=== PATIENT | male | born 1935 | race Caucasian/White ===

== ENCOUNTER 2017-05-16 02:14 | Inpatient (IN) | payer OTHER, MEDICARE ==
[~2017-05-16] VITALS: Ht 175.3 cm; Wt 120.4 kg
[2017-05-16] VITALS (15 sets, daily range): BP systolic 123–162; BP diastolic 65–89; PULSE 62–91; TEMP 36.3–36.6; O2SAT 91–95; BMI 39.6
[~2017-05-16 02:14] MED LIST: LISI10TA PO; MISC1CAP60 PO; NVLGI7030 SC
[2017-05-16] MEDS ORDERED: NITROGLYCERIN 0.4 MG SL PER TAB CHARGE ONE (02:33)
[2017-05-16] MEDS ORDERED: NITROGLYCERIN 0.4 MG SL PER TAB CHARGE SL STA (02:33)
--- NOTE | 2017-05-16 02:40 | EMERGENCY ROOM VISIT NOTE ---
History Report prepared by Felipe: Payton Catsellanos Under the Supervision of: Dr. Becca Champagne D.O. First contact with patient: 02:25 Chief Complaint: CHEST PAIN Stated Complaint: CHEST PAIN History of Present Illness The patient is a 81 year old male who presents to the Emergency Room with complaints of persistent, worsening chest pain that began around 1800. He currently rates his discomfort as an 8/10 in severity. The patient states that around 1800 he developed chest pain and states that he had difficulty sleeping due to the pain. He states that his pain continued to worsen throughout the night and additionally notes some slight shortness of breath and diaphoresis. The patient denies any abdominal pain or nausea. He denies any history of a previous AR, but notes that he has had normal stress tests and normal heart catheterization 10 years ago. The patient's notes that the patient's brother had an AR. The patient states that he had blood work done at the [facility] three weeks ago that was normal. He additionally states that he has his cholesterol checked every six months and states that it was always normal. The patient states that he took two, 324 mg aspirin prior to arrival. The patient' s additionally notes that the patient has a history of brain surgery 7 years ago and a previous stroke. Source of History: patient, spouse/significant other () Onset: 1800 Position: chest Symptom Intensity: 8/10 Timing: worsening, other (persistent) Associated Symptoms: + diaphoresis, + SOB, No nausea, No abdominal pain Review of Systems See HPI for pertinent positives & negatives. A total of 10 systems reviewed and were otherwise negative. Past Medical & Surgical Medical Problems: (1) Diabetes (2) Hypertension (3) Stroke Surgical Problems: (1) H/O brain surgery Family History Cancer Diabetes mellitus Heart disease Social History Smoking Status: Never Smoker Smokeless Tobacco Use: No Alcohol Use: none Drug Use: none Marital Status: Housing Status: lives with family Occupation Status: retired Current/Historical Medications Scheduled Glyburide (Micronase), 5 MG PO BID Insulin Human NPH (Novolin N), 20 UNITS SQ QAM Insulin Human NPH (Novolin N), 45 UNITS SQ QPM Lisinopril (Zestril), 20 MG PO BID Metoprolol Tartrate (Lopressor) (Lopressor), 12.5 MG PO BID Allergies Coded Allergies: Aspirin (Verified Adverse Reaction, Severe, fell=subdural=wouldn't stop bleeding, 11/02/14) Metformin (Verified Adverse Reaction, Severe, diarrhea, 11/02/14) Physical Exam Vital Signs Date Time Temp Pulse Resp B/P (MAP) Pulse Ox O2 Delivery O2 Flow Rate FiO2 05/16/17 03:49 79 144/77 05/16/17 03:32 88 159/89 97 Nasal Cannula 2.0 05/16/17 03:29 81 149/81 05/16/17 02:50 96 20 143/66 94 Nasal Cannula 2.0 05/16/17 02:45 93 20 158/94 93 Nasal Cannula 2.0 05/16/17 02:40 94 20 148/93 94 Room Air 05/16/17 02:31 93 05/16/17 02:31 Room Air 05/16/17 02:30 90 20 178/92 94 Room Air 05/16/17 02:23 95 Room Air 05/16/17 02:16 36.4 51 20 191/89 93 Room Air Physical Exam HEENT: Head - normocephalic and atraumatic Pupils are equal, round, and reactive to light. Extraocular eye muscles are intact, and sclera are anicteric. Nose - moist nasal mucosa without discharge. Mouth - moist buccal mucosa. Oropharynx is nonerythematous and there is no tonsillar exudate or edema noted. Neck: Supple; no JVD, nuchal rigidity, cervical lymphadenopathy. Heart: Regular rate and rhythm. There is a normal S1 and S2 with no murmurs, clicks, or gallops appreciated. Lungs: Clear to auscultation bilaterally with no wheezes, rales, or rhonchi. Abdomen: Soft, completely nontender, nondistended, with good bowel sounds. There are no palpable pulsatile masses or hepatosplenomegaly. There is no guarding, rigidity, or rebound noted. Extremities: No evidence of cyanosis or clubbing. There is trace pedal edema. There are easily palpable peripheral pulses. Skin: Pale skin, warm and dry with good turgor and no rashes. Medical Decision & Procedures ER Provider Diagnostic Interpretation: 1 view chest x-ray interpreted by me, pending radiology review: borderline cardiomegaly, no pulmonary infiltrates, no pulmonary contusions Laboratory Results 05/16/17 02:22 Red Blood Count 4.96, Mean Corpuscular Volume 86.1, Mean Corpuscular Hemoglobin 29.4, Mean Corpuscular Hemoglobin Concent 34.2, Mean Platelet Volume 10.7, Neutrophils (%) (Auto) 53.7, Lymphocytes (%) (Auto) 34.5, Monocytes (%) (Auto) 7.6, Eosinophils (%) (Auto) 3.4, Basophils (%) (Auto) 0.5, Neutrophils # (Auto) 4.26, Lymphocytes # (Auto) 2.73, Monocytes # (Auto) 0.60, Eosinophils # (Auto) 0.27, Basophils # (Auto) 0.04 05/16/17 02:22 Test 05/16/17 02:22 White Blood Count 7.92 K/uL (4.8-10.8) Red Blood Count 4.96 M/uL (4.7-6.1) Hemoglobin 14.6 g/dL (14.0-18.0) Hematocrit 42.7 % (42-52) Mean Corpuscular Volume 86.1 fL (80-100) Mean Corpuscular Hemoglobin 29.4 pg (25-34) Mean Corpuscular Hemoglobin Concent 34.2 g/dl (32-36) Platelet Count 208 K/uL (130-400) Mean Platelet Volume 10.7 fL (7.4-10.4) Neutrophils (%) (Auto) 53.7 % Lymphocytes (%) (Auto) 34.5 % Monocytes (%) (Auto) 7.6 % Eosinophils (%) (Auto) 3.4 % Basophils (%) (Auto) 0.5 % Neutrophils # (Auto) 4.26 K/uL (1.4-6.5) Lymphocytes # (Auto) 2.73 K/uL (1.2-3.4) Monocytes # (Auto) 0.60 K/uL (0.11-0.59) Eosinophils # (Auto) 0.27 K/uL (0-0.5) Basophils # (Auto) 0.04 K/uL (0-0.2) RDW Standard Deviation 40.9 fL (36.4-46.3) RDW Coefficient of Variation 13.0 % (11.5-14.5) Immature Granulocyte % (Auto) 0.3 % Immature Granulocyte # (Auto) 0.02 K/uL (0.00-0.02) Nucleated RBC Absolute Count (auto) 0.02 K/uL (0-0) Nucleated Red Blood Cells % 0.2 % Prothrombin Time 10.1 SECONDS (9.0-12.0) Prothromb Time International Ratio 0.9 (0.9-1.1) Activated Partial Thromboplast Time 26.7 SECONDS (21.0-31.0) Partial Thromboplastin Ratio 1.0 Anion Gap 9.0 mmol/L (3-11) Est Creatinine Clear Calc Drug Dose 57.4 ml/min Estimated GFR () 60.1 Estimated GFR (Non- 51.9 BUN/Creatinine Ratio 15.6 (10-20) Calcium Level 8.9 mg/dl (8.5-10.1) Total Bilirubin 0.5 mg/dl (0.2-1) Aspartate Amino Transf (AST/SGOT) 102 U/L (15-37) Alanine Aminotransferase (ALT/SGPT) 30 U/L (12-78) Alkaline Phosphatase 62 U/L (45-117) Total Creatine Kinase 957 U/L (39-308) Creatine Kinase MB 100.4 ng/ml (0.5-3.6) Creatine Kinase MB Ratio 10.5 (0-3.0) Troponin I 17.400 ng/ml (0-0.045) Pro-B-Type Natriuretic Peptide 998 pg/ml (0-1800) Total Protein 7.2 gm/dl (6.4-8.2) Albumin 3.7 gm/dl (3.4-5.0) Globulin 3.5 gm/dl (2.5-4.0) Albumin/Globulin Ratio 1.1 (0.9-2) Laboratory results per my review. Medications Administered Medications (Trade) Dose Ordered Sig/Young Route Start Time Stop Time Status Last Admin Dose Admin Nitroglycerin (Nitrostat Tab) 0.4 mg STK-MED ONCE .ROUTE 05/16/17 02:33 05/16/17 02:34 DC 05/16/17 02:33 0.4 MG Metoprolol Tartrate (Lopressor Iv) 5 mg NOW STAT IV 05/16/17 03:08 05/16/17 03:09 DC 05/16/17 03:29 5 MG Nitroglycerin (Nitroglycerin 2% Oint) 1 inch NOW ONCE EXT 05/16/17 03:30 05/16/17 03:31 DC 05/16/17 03:27 1 INCH Ticagrelor (Brilinta Cap) 180 mg STK-MED ONCE PO 05/16/17 04:18 05/16/17 04:19 DC 05/16/17 03:58 180 MG Procedure Medications Administered: Nitroglycerin 0.4 mg SL x3, Lopressor IV 5 mg IV, Nitro SL, Nitroglycerin 1 inch ext. ECG Indication: chest pain Rate (beats per minute): 92 Rhythm: other (bigeminy) Findings: ST elevation (V2, V3, V4), other (Bigeminy) Comparison ECG Date: 11/2013 Change: Repeat EKG #1: normal sinus rhythm, 96 beats per minute, frequent PVCs 1-[address] segment elevation in V2, V3, V4. When compared to EKG done on 11/2013, ST segment elevations, PVCs, and Bigeminy are new. Repeat EKG #2: normal sinus rhythm, greater than [address] elevation in V2, V3 , V4 concerning for STEMI. ED Course 0227: Past medical records reviewed. The patient was evaluated in room B10. A complete history and physical exam was performed. A twelve-lead EKG was obtained. The patient was observing the clinical research monitor and pulse oximeter. An IV lock was initiated and labs were drawn as above. 0233: Ordered Nitroglycerin 0.4 mg SL 0248: I reevaluated the patient and he is now chest pain free since receiving nitroglycerin. 0308: Ordered Lopressor IV 4 mg IV. He had a portable chest x-ray as described above. 0317: The patients Troponin came back as a 17.4. I reevaluated the patient and his chest pain came back, rating it as a 2/10 in severity. A verbal order for 0.4 mg Nitroglycerin SL. The patient will be given Nitropaste, and an additional EKG will be obtained. 0326: The EKG showed greater than [address] segment elevation in the anterior leads. A code heart alert was called at this time. ZAY Murry and I were at the bedside. 0330: Ordered Nitroglycerin 1 inch paste 0333: I reevaluated the patient and he rates his chest pain as a 1-2/10 in severity. 0336: He is currently rating his discomfort as a 1/10 in severity. 0345: Dr. Cruz, Cardiology arrived in the emergency department to evaluate the patient further and take him for a cardiac catheterization. Medical Decision The patient is a 81 year old male who presents to the ED with chest pain. Differential diagnosis includes STEMI, acute coronary syndrome, NSTEMI, GERD, angina. I attest that I have personally reviewed the patient's current medication list. Patient was found to have an elevated blood pressure and was referred to their primary doctor for recheck and further treatment. Lab interpretation: normal white count, stable H&H, troponin 17.4, total CK 957 , CKMB 100, BUN 20, creatinine 1.3, glucose 227, coagulation studies were normal. The patient developed some chest discomfort earlier this evening. He was unable to fall sleep because the chest pain worsened. Upon presentation to the ER, he had some mild ST segment elevation in the anterior leads. The chest pain was initially relieved by sublingual nitroglycerin. However, when the chest pain returned, a repeat EKG was performed and the ST segments had elevated even further. At that point, a heart alert was called and I discussed the case with Dr. Cruz. The patient remains hemodynamically stable while here in the emergency department. Consults Time Called: [phone] Consulting Physician: ZAY Murry Returned Call: [phone] The patient will evaluate the patient for further treatment by ZAY Murry. Impression Primary Impression: STEMI (ST elevation myocardial infarction) Additional Impression: Hyperglycemia Critical Care I have personally spent greater than 60 minutes of critical care time in the direct management of this patient. This includes bedside care, interpretation of diagnostic studies, and testing, discussion with consultants, patient, and family members, and other required patient management activities. This 60 minutes is in excess of all separately billable procedures. Scribe Attestation The scribe's documentation has been prepared under my direction and personally reviewed by me in its entirety. I confirm that the note above accurately reflects all work, treatment, procedures, and medical decision making performed by me. Departure Information Dispostion Being Evaluated By Hospitalist Referrals No Doctor, Assigned (PCP) Problem Qualifiers
[2017-05-16 02:42] LABS: BASO % 0.5 %; BASO ABS # 0.04 K/uL (0-0.2); COMPLETE YES; EOS % 3.4 %; HEMATOCRIT 42.7 % (42-52); IG% 0.3 %; LYMPH % 34.5 %; LYMPH ABS # 2.73 K/uL (1.2-3.4); MEAN CELL VOLUME 86.1 fL (80-100); MEAN CORPUSCULAR HEMOGLOBIN 29.4 pg (25-34); MEAN CORPUSCULAR HGB CONC 34.2 g/dl (32-36); MEAN PLATELET VOLUME 10.7 fL (7.4-10.4); MONO % 7.6 %; NEUT % 53.7 %; PLATELET COUNT 208 K/uL (130-400); RED BLOOD COUNT 4.96 M/uL (4.7-6.1); WHITE BLOOD COUNT 7.92 K/uL (4.8-10.8)
[2017-05-16 03:01] LABS: BUN/CREATININE RATIO 15.6 (10-20); CREATININE 1.3 mg/dl (0.60-1.40); POTASSIUM 4.5 mmol/L (3.5-5.1)
[2017-05-16] MEDS ORDERED: GLYB5TAB8 PO (03:02)
[2017-05-16] MEDS ORDERED: NVLNI SQ ×2 (03:03→03:05)
[2017-05-16] MEDS ORDERED: LISI-725 PO (03:06)
[2017-05-16] MEDS ORDERED: METO25TA56 PO (03:06)
[2017-05-16 03:08] LABS: INR 0.9 (0.9-1.1); PROTHROMBIN TIME (PATIENT) 10.1 SECONDS (9.0-12.0)
[2017-05-16] MEDS ORDERED: METOPROLOL TARTRATE 1 MG/ML VIAL IV STA (03:08)
[2017-05-16 03:12] LABS: ALB/GLOB RATIO 1.1 (0.9-2); CKMB/CK RATIO 10.5 (0-3.0)
[2017-05-16] MEDS ORDERED: NITROGLYCERIN OINT 2% 1GM PACKET EXT ONE (03:30)
[2017-05-16 03:32] LABS: CALCIUM 8.9 mg/dl (8.5-10.1)
--- NOTE | 2017-05-16 03:58 | Procedure Note ---
Pre-Mod Sedation Assessment General Date of Moderate Sedation: May 16, 2017. Vital Signs: Vital Signs Past 12 Hours Date Time Temp Pulse Resp B/P (MAP) Pulse Ox O2 Delivery O2 Flow Rate FiO2 05/16/17 03:49 79 144/77 05/16/17 03:32 88 159/89 97 Nasal Cannula 2.0 05/16/17 03:29 81 149/81 05/16/17 02:50 96 20 143/66 94 Nasal Cannula 2.0 05/16/17 02:45 93 20 158/94 93 Nasal Cannula 2.0 05/16/17 02:40 94 20 148/93 94 Room Air 05/16/17 02:31 93 05/16/17 02:31 Room Air 05/16/17 02:30 90 20 178/92 94 Room Air 05/16/17 02:23 95 Room Air 05/16/17 02:16 36.4 51 20 191/89 93 Room Air Review Cardiovascular: regular rate, rhythm, no edema Abdomen: normal bowel sounds, non tender Lungs: chest non-tender, lungs clear Airway Class: III Pre-Sedation Airway Assessment Oral Cavity: WNL Able to Visualize Vocal Cords: No Short Thick Neck: Yes Hx of Sleep Apnea: No Smoking Status: Never Smoker Mallampati Classification: Class III ASA Classification: Class III Procedure Planning Contraindications-for Mod Sed: None Yes Notes The planned sedation has been discussed with the patient and consent obtained. I have identified the patient, determined the appropriateness of sedation and have assessed the patient immediately prior to the procedure. All medicine(s) and interventions are by my order.
[2017-05-16] MEDS ORDERED: TICAGRELOR 90 MG TAB PO ONE (04:18)
[2017-05-16] MEDS ORDERED: NiCARDipine HCL INJ 2.5 MG/ML 10 ML AMP ONE (04:19)
[2017-05-16] MEDS ORDERED: HEPARIN SOD (PORCINE) 1000 UNIT/ML 10 ML VIAL ONE (04:19)
[2017-05-16] MEDS ORDERED: FENTANYL CITRATE INJ 50 MCG/1 ML 2 ML VIAL ONE ×2 (04:19→05:12)
[2017-05-16] MEDS ORDERED: NITROGLYCERIN/D5W 100MCG/ML 20ML SYR ONE (04:19)
[2017-05-16] MEDS ORDERED: MIDAZOLAM HCL 1 MG/ML 2ML VIAL ONE ×2 (04:19→05:10)
[2017-05-16] MEDS ORDERED: HydrALAZINE HCL 20 MG/ML VIAL ONE (04:58)
--- NOTE | 2017-05-16 05:41 | Procedure Note ---
Post-Mod Sedation Assessment General Date of Moderate Sedation May 16, 2017. Vital Signs: Vital Signs Past 12 Hours Date Time Temp Pulse Resp B/P (MAP) Pulse Ox O2 Delivery O2 Flow Rate FiO2 05/16/17 03:49 79 144/77 05/16/17 03:32 88 159/89 97 Nasal Cannula 2.0 05/16/17 03:29 81 149/81 05/16/17 02:50 96 20 143/66 94 Nasal Cannula 2.0 05/16/17 02:45 93 20 158/94 93 Nasal Cannula 2.0 05/16/17 02:40 94 20 148/93 94 Room Air 05/16/17 02:31 93 05/16/17 02:31 Room Air 05/16/17 02:30 90 20 178/92 94 Room Air 05/16/17 02:23 95 Room Air 05/16/17 02:16 36.4 51 20 191/89 93 Room Air Review - Discharge Criteria Vital Signs Stable: Yes Alert/Oriented/Conversant: Yes Returned to Baseline Mental St: Yes Nausea Absent/Minimal: Yes Pain/Discomfort/Absent/Minimal: Yes Normal/Baseline Respirations: Yes Active Bleeding?: No Pt Received D/C Instructions: N/A Prescriptions Given: None Specific Proced. D/C Criteria Distal Pulses Present (Cardiac: Yes Groin site assessed-Card Cath: N/A Voided Prior To Discharge: N/A Discharged Patients Adult Escort/Transportation: Yes
[2017-05-16] MEDS ORDERED: ONDANSETRON INJ 2 MG/ML 2 ML VIAL IV PRN ×3 (05:45→09:45)
[2017-05-16] MEDS ORDERED: ACETAMINOPHEN 325 MG TAB PO PRN ×2 (05:45→09:45)
--- NOTE | 2017-05-16 06:01 | Cardiology Consultation ---
Cardiology Consultation Date of Consultation: May 16, 2017. Requesting Physician: Dr. Champagne Reason for Consultation: Heart Alert History of Present Illness 81 year old male with a history of type 2 DM on insulin, hypertension here with new chest pain, presenting as a STEMI/Heart Alert. Pain began around 6:00 pm on 05/15 while patient was sitting at home watching TV. Pain persisted for the rest of the night but became progressively worse before presenting to the ED ~ 2:15. In the ED initial ECGs had subtle anterior ST changes with frequent PVCs, bigeminy. Subsequent ECG obtained at 3:23 in the setting of worsened pain showed ST elevations in V2-V5 and heart alert called. Initial troponin 17.4 In ED/en route received ASA, nitro and metoprolol. At time of interview patient with 2/10 residual chest pain. No prior cardiac history. Had a LHC without intervention ~ 15 yrs ago at [place]. Past Medical/Surgical History 1. Hypertension, 2. Type 2 DM, 3. Osteoarthritis, 4. Chronic back pain, 5. 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 Allergies Coded Allergies: Aspirin (Verified Adverse Reaction, Severe, fell=subdural=wouldn't stop bleeding, 11/02/14) Metformin (Verified Adverse Reaction, Severe, diarrhea, 11/02/14) Physical Exam Vital Signs Past 12 Hours Date Time Temp Pulse Resp B/P (MAP) Pulse Ox O2 Delivery O2 Flow Rate FiO2 05/16/17 03:49 79 144/77 05/16/17 03:32 88 159/89 97 Nasal Cannula 2.0 05/16/17 03:29 81 149/81 05/16/17 02:50 96 20 143/66 94 Nasal Cannula 2.0 05/16/17 02:45 93 20 158/94 93 Nasal Cannula 2.0 05/16/17 02:40 94 20 148/93 94 Room Air 05/16/17 02:31 93 05/16/17 02:31 Room Air 05/16/17 02:30 90 20 178/92 94 Room Air 05/16/17 02:23 95 Room Air 05/16/17 02:16 36.4 51 20 191/89 93 Room Air Head: normocephalic ENMT: hearing grossly normal Neck: supple Lungs: Respiratory effort: no dyspnea Auscultation: breath sounds normal Cardiovascular: Heart Auscultation: RRR, no murmurs Peripheral Pulses: Radial Pulse: normal on the left, normal on the right Dorsalis Pedis Pulse: normal on the left, normal on the right Abdomen: Bowel Sounds: normal Inspection & Palpation: soft Liver: non-tender Musculoskeletal: normal Extremities: no edema Neurologic: Cranial Nerves: grossly intact Data Laboratory Results: Last 24 Hours Test 05/16/17 02:22 White Blood Count 7.92 K/uL Red Blood Count 4.96 M/uL Hemoglobin 14.6 g/dL Hematocrit 42.7 % Mean Corpuscular Volume 86.1 fL Mean Corpuscular Hemoglobin 29.4 pg Mean Corpuscular Hemoglobin Concent 34.2 g/dl Platelet Count 208 K/uL Mean Platelet Volume 10.7 fL Neutrophils (%) (Auto) 53.7 % Lymphocytes (%) (Auto) 34.5 % Monocytes (%) (Auto) 7.6 % Eosinophils (%) (Auto) 3.4 % Basophils (%) (Auto) 0.5 % Neutrophils # (Auto) 4.26 K/uL Lymphocytes # (Auto) 2.73 K/uL Monocytes # (Auto) 0.60 K/uL Eosinophils # (Auto) 0.27 K/uL Basophils # (Auto) 0.04 K/uL RDW Standard Deviation 40.9 fL RDW Coefficient of Variation 13.0 % Immature Granulocyte % (Auto) 0.3 % Immature Granulocyte # (Auto) 0.02 K/uL Nucleated RBC Absolute Count (auto) 0.02 K/uL Nucleated Red Blood Cells % 0.2 % Prothrombin Time 10.1 SECONDS Prothromb Time International Ratio 0.9 Activated Partial Thromboplast Time 26.7 SECONDS Partial Thromboplastin Ratio 1.0 Sodium Level 137 mmol/L Potassium Level 4.5 mmol/L Chloride Level 106 mmol/L Carbon Dioxide Level 22 mmol/L Anion Gap 9.0 mmol/L Blood Urea Nitrogen 20 mg/dl Creatinine 1.30 mg/dl Est Creatinine Clear Calc Drug Dose 57.4 ml/min Estimated GFR () 60.1 Estimated GFR (Non- 51.9 BUN/Creatinine Ratio 15.6 Random Glucose 227 mg/dl Calcium Level 8.9 mg/dl Total Bilirubin 0.5 mg/dl Aspartate Amino Transf (AST/SGOT) 102 U/L Alanine Aminotransferase (ALT/SGPT) 30 U/L Alkaline Phosphatase 62 U/L Total Creatine Kinase 957 U/L Creatine Kinase MB 100.4 ng/ml Creatine Kinase MB Ratio 10.5 Troponin I 17.400 ng/ml Pro-B-Type Natriuretic Peptide 998 pg/ml Total Protein 7.2 gm/dl Albumin 3.7 gm/dl Globulin 3.5 gm/dl Albumin/Globulin Ratio 1.1 Assessment & Plan 1. Anterior STEMI 2. Hypertension 3. Type 2 DM 4. History of SDH Presentation consistent with Anterior STEMI and recommend emergent cardiac cath with possible PCI Discussed with patient risk, benefits and alternatives and he is willing to proceed. Loaded with 180 mg Ticagrelor in ED Further recommendations pending findings.
[2017-05-16] MEDS ORDERED: GLUCAGON FOR INJ 1 MG VIAL SQ PRN (06:15)
[2017-05-16] MEDS ORDERED: GLUCOSE 10 TABS/TUBE PO PRN (06:15)
[2017-05-16] MEDS ORDERED: DEXTROSE 50% 50 ML SYR IV PRN (06:15)
[2017-05-16] MEDS ORDERED: GLUCOSE 40% GEL 15 GM TUBE PO PRN (06:15)
--- NOTE | 2017-05-16 06:27 | Cardiac Catheterization ---
Procedure Note Procedure Date May 16, 2017. Pre-Procedure Diagnosis STEMI AUC Score 9 Post-Procedure Diagnosis Severe CAD, Successful PCI, Elevated Intracardiac Pressures Procedure(s) Performed Coronary Angiography, Left Heart Cath, Drug Eluting Stent Weight Control Lecturer Anthony Rf Test Engineer(s) Dania Estimated Blood Loss 20 Medication(s) Fentanyl, Heparin, Nitroglycerin, Versed, Lidocaine 1% Summary of Findings Indication: STEMI/Heart Alert Access: 6Fr Right Radial Artery Catheters: [place]; EBU 3.5 guide Findings: LM - Large caliber vessel, luminal irregularities. LAD - Heavily calcified in the proximal to mid segments. Mild diffuse proximal disease; 100% occluded in mid segment after take-off of 2nd diagonal; after flow reestablish 90% distal LAD stenosis; Large 1st diagonal with mid 70% stenosis as bifurcates; Small 2nd diagonal with moderate diffuse disease Circumflex - Moderate caliber vessel, diffuse proximal to mid 80-90% disease; OM2 with luminal irregularities RCA - Dominant, mild proximal calcification, 20% proximal stenosis, diffuse mild disease in distal segment; Occluded small PDA at ostium (partially fills via left to right collaterals); PAV 40-50% stenosis, PLB2 with 50-60% proximal stenosis LVEDP - 18 -- PCI -- Antithrombotic therapy: heparin, ticagrelor Procedure: LM cannulated with EBU 3.5 guide Prowater wire passed across lesion into distal LAD Mid LAD lesion predilated with 2.5 and 3.0 compliant balloons Dilated lesion stented with 3.0 x 34 Resolute JOSE MARIA Stent post-dilated with 3.5 noncompliant balloon IC vasodilators administered for spasm 2.25 x 18 Resolute JOSE MARIA placed to distal LAD lesion Stent post-dilated with 2.5 NC balloon Post procedure REINA 3 flow, stents well expanded with minimal residual stenosis and no apparent cardiac complications. Arterial Closure: TR Band Summary: 1. Anterior STEMI/Occluded mid LAD 2. Multivessel residual coronary artery disease - 80-90% proximal-mid circumflex disease - 70% mid 1st diagonal at bifurcation - Occluded small PDA, partially fills via left to right collaterals 3. Mildly elevated intracardiac filling pressure. LVEDP 18 4. Successful PCI of mid and distal LAD with 2 drug-eluting stents (3.0 x 34 [ post-dilated to 3.5], 2.25 x 18 Resolute) Recommendations: Admit to ICU for continued monitoring Loaded with Ticagrelor in ED Continue dual-antiplatelet therapy for at least a year Trend troponins until peak, Check Echo Uptitrate beta-terell/JOAQUIN as BP allows High-dose statin Consult cardiac Rehab Possible PCI of proximal-mid circumflex this hospitalization. Hemodynamics Rest Ao: 192/46/67 Final Ao: 124/64/94 LV: 121/18 Recommendations PCI without planned CABG Specimens None Radiation Exposure (mGy) 6358 Contrast (mls) 265 Fluids (cc crystalloids) 55 Drains None Anesthesia Moderate Procedural Complication(s) None Disposition ICU ACC Data Cardiac Status Clinical evaluation leading to the procedure CAD Presntation: STEMI STEMI or Non-STEMI: Symptom Onset Date/Time: 05/15 18:00 Thrombolytics: No Anginal Classification: CCS IV Heart Failure: No, NYHA Class: CCS I Cardiogenic Shock w/in 24Hrs: No Cardiac Arrest w/in 24Hrs: No Imaging studies past 6 months: No Stress studies past 6 months: No Standard Exercise Stress Test: No Stress Echocardiogram: No Stress Testing w/SPECT MPI: No Cardiac CTA: No Coronary Anatomy Dominant: Right Left Main (% Stenosis): Normal LAD (% Stenosis): Mid (100), Distal (90) D1 (% Stenosis): Mid (70) Circumflex (% Stenosis): Proximal (80) RCA (% Stenosis): Proximal (20) R PDA (% Stenosis): Ostial (100) Diagnostic Physician's Name: Twan Cruz MD Status: Emergency Closure Device Percutaneous Entry Location: Radial Closure Device: Radial Band Recommendations: PCI without planned CABG PCI Indication: Immediate PCI for STEMI First Noted: First EKG (3:23) Lesion Segment Name: Mid LAD Culprit Artery: Yes Stenosis Prior to Rx (%): 100 Chronic Total Occlusion: No IVUS: No FFR: No Pre-Procedure REINA Flow: 0 Previously Treated Lesion: No Lesion Complexity: Non-High/Non-C Lesion Length (mm): 20 Thrombus Present: Yes Bifurcation Lesion: No Guidewire Across Lesion: Yes Guidewire: Stenosis Post-Procedure (%): 0 Post-Procedure REINA Flow: 3 Device(s) Deployed: Yes Intraprocedure Events Significant Dissection: No Perforation: No
--- NOTE | 2017-05-16 06:35 | History and Physical ---
History & Physical Date & Time of Service: May 16, 2017 at 06:16 Chief Complaint: AMI Primary Care Physician: Daniel Anaya M.D. History of Present Illness Source: patient The patient is a 81-year-old male who developed the acute onset of worsening chest pain around 1800 hrs., that kept him awake most of the evening. As the night progressed, he developed some shortness of breath and sweats, he then took 2 of the 324 mg aspirin, and came to the emergency department for assessment. He reports that he's never had an OK, he has had a number of normal stress tests, and had a normal cardiac catheterization 10 years ago. In the emergency department his workup included laboratories and EKGs. His initial chest pain resolved with sublingual nitroglycerin, but at the time his laboratories came back and showed elevated troponin of 17.4, he had the return of chest pain, and developed ST segment elevation across the precordial leads, and a heart alert was called. He was then taken to the lab support service tech by Dr. Cruz, where he received 2 drug-eluting stents in the LAD. The patient has then been admitted to the ICU for continued management. In the ICU, the patient's chest pain is 1/10, as was present immediately post- cath. He has no shortness of breath, no nausea or vomiting. Past Medical/Surgical History Medical Problems: (1) Diabetes Status: Chronic (2) Hypertension Status: Chronic (3) Stroke Status: Resolved Surgical Problems: (1) H/O brain surgery Status: Resolved Family History Cancer Diabetes mellitus Heart disease Social History Smoking Status: Never Smoker Smokeless Tobacco Use: No Drug Use: none Marital Status: Occupational Status: retired Immunizations History of Influenza Vaccine: Yes Influenza Vaccine Date: Sep 29, 2013 History of Tetanus Vaccine?: Yes History of Pneumococcal: Yes Pneumococcal Date: Nov 29, 2009 History of Hepatitis B Vaccine: No Multi-Drug Resistant Organisms History of MDRO: No Allergies Coded Allergies: Aspirin (Verified Adverse Reaction, Severe, fell=subdural=wouldn't stop bleeding, 11/02/14) Metformin (Verified Adverse Reaction, Severe, diarrhea, 11/02/14) Home Medications Scheduled Glyburide (Micronase), 5 MG PO BID Insulin Human NPH (Novolin N), 20 UNITS SQ QAM Insulin Human NPH (Novolin N), 45 UNITS SQ QPM Lisinopril (Zestril), 20 MG PO BID Metoprolol Tartrate (Lopressor) (Lopressor), 12.5 MG PO BID Review of Systems Post cardiac catheterization, the patient denies palpitations, shortness of breath, cough, lower extremity swelling, sore throat, fevers, chills, sweats, nausea, vomiting, abdominal pain, pelvic pain, blood in urine or stool, dysuria , urinary frequency or urgency, lightheadedness, dizziness, headache, memory loss, focal or generalized weakness, numbness or tingling in arms or legs, arthralgias or myalgias, back or neck pain, night sweats. The review of systems is otherwise negative other than for that already noted above, and at least 10 systems have been reviewed. Physical Exam Vital Signs Date Time Temp Pulse Resp B/P (MAP) Pulse Ox O2 Delivery O2 Flow Rate FiO2 05/16/17 05:45 36.3 66 17 123/89 93 Room Air 05/16/17 05:35 66 16 152/72 (98) 92 Room Air 05/16/17 05:25 66 16 140/72 (94) 92 Room Air 05/16/17 03:49 79 144/77 05/16/17 03:32 88 159/89 97 Nasal Cannula 2.0 05/16/17 03:29 81 149/81 05/16/17 02:50 96 20 143/66 94 Nasal Cannula 2.0 05/16/17 02:45 93 20 158/94 93 Nasal Cannula 2.0 05/16/17 02:40 94 20 148/93 94 Room Air 05/16/17 02:31 93 05/16/17 02:31 Room Air 05/16/17 02:30 90 20 178/92 94 Room Air 05/16/17 02:23 95 Room Air 05/16/17 02:16 36.4 51 20 191/89 93 Room Air The patient is awake, well-developed and adequately nourished, alert and oriented 3, normocephalic and atraumatic, lying in bed and in no acute distress. HEENT--PERRL, EOMI, mucous membranes and oropharynx normal. Neck--supple, no JVD or bruits, thyroid normal, trachea midline, no adenopathy. Heart--normal S1 and S2, no extra beats, no murmurs, rubs or gallops. Lungs--clear bilaterally, but diminished throughout, no respiratory distress, no accessory muscle use. Abdomen--normal bowel sounds and soft, nontender and nondistended, no hernias or masses, no organomegaly. Extremities--no cyanosis, clubbing or edema. There are good distal pulses b/l. Dermatologic--normal skin turgor, normal color, warm and dry, no abnormal lymph nodes, no rash. Neurologic--cranial nerves II through XII grossly intact. Rheumatologic--deferred. Psychiatric--normal affect. Diagnostics Laboratory Results Results Past 24 Hours Test 05/16/17 02:22 05/16/17 06:00 Range/Units White Blood Count 7.92 4.8-10.8 K/uL Red Blood Count 4.96 4.7-6.1 M/uL Hemoglobin 14.6 14.0-18.0 g/dL Hematocrit 42.7 42-52 % Mean Corpuscular Volume 86.1 80-100 fL Mean Corpuscular Hemoglobin 29.4 25-34 pg Mean Corpuscular Hemoglobin Concent 34.2 32-36 g/dl Platelet Count 208 130-400 K/uL Mean Platelet Volume 10.7 7.4-10.4 fL Neutrophils (%) (Auto) 53.7 % Lymphocytes (%) (Auto) 34.5 % Monocytes (%) (Auto) 7.6 % Eosinophils (%) (Auto) 3.4 % Basophils (%) (Auto) 0.5 % Neutrophils # (Auto) 4.26 1.4-6.5 K/uL Lymphocytes # (Auto) 2.73 1.2-3.4 K/uL Monocytes # (Auto) 0.60 0.11-0.59 K/uL Eosinophils # (Auto) 0.27 0-0.5 K/uL Basophils # (Auto) 0.04 0-0.2 K/uL RDW Standard Deviation 40.9 36.4-46.3 fL RDW Coefficient of Variation 13.0 11.5-14.5 % Immature Granulocyte % (Auto) 0.3 % Immature Granulocyte # (Auto) 0.02 0.00-0.02 K/uL Nucleated RBC Absolute Count (auto) 0.02 0-0 K/uL Nucleated Red Blood Cells % 0.2 % Prothrombin Time 10.1 9.0-12.0 SECONDS Prothromb Time International Ratio 0.9 0.9-1.1 Activated Partial Thromboplast Time 26.7 21.0-31.0 SECONDS Partial Thromboplastin Ratio 1.0 Sodium Level 137 136-145 mmol/L Potassium Level 4.5 3.5-5.1 mmol/L Chloride Level 106 98-107 mmol/L Carbon Dioxide Level 22 21-32 mmol/L Anion Gap 9.0 3-11 mmol/L Blood Urea Nitrogen 20 7-18 mg/dl Creatinine 1.30 0.60-1.40 mg/dl Est Creatinine Clear Calc Drug Dose 57.4 ml/min Estimated GFR () 60.1 Estimated GFR (Non- 51.9 BUN/Creatinine Ratio 15.6 10-20 Random Glucose 227 70-99 mg/dl Calcium Level 8.9 8.5-10.1 mg/dl Total Bilirubin 0.5 0.2-1 mg/dl Aspartate Amino Transf (AST/SGOT) 102 15-37 U/L Alanine Aminotransferase (ALT/SGPT) 30 12-78 U/L Alkaline Phosphatase 62 45-117 U/L Total Creatine Kinase 957 39-308 U/L Creatine Kinase MB 100.4 0.5-3.6 ng/ml Creatine Kinase MB Ratio 10.5 0-3.0 Troponin I 17.400 0-0.045 ng/ml Pro-B-Type Natriuretic Peptide 998 0-1800 pg/ml Total Protein 7.2 6.4-8.2 gm/dl Albumin 3.7 3.4-5.0 gm/dl Globulin 3.5 2.5-4.0 gm/dl Albumin/Globulin Ratio 1.1 0.9-[address] elevations across the precordial leads precardiac catheterization. Impression Assessment and Plan STEMI/status post 2 drug-eluting stents in the LAD--patient will be admitted to the ICU with post catheterization orders per Dr. Cruz. His lisinopril 20 mg by mouth twice a day has been held. Diabetes mellitus --we'll continue with Novolin N 20 units subcutaneous every morning, and 45 units every evening. We'll hold glyburide 5 mg by mouth twice a day. Place on Accu-Cheks before meals and at bedtime with NovoLog coverage per scale. Hypercholesterolemia--empiric atorvastatin 80 mg daily. Abnormal LFTs--follow serially. We'll order an ultrasound of right upper quadrant of abdomen. CVA/brain surgery 7 years ago--no active issue at this point. Stroke prevention in concert with secondary heart prevention. Level of Care Critical Care Advanced Directives Existing Advance Directive: No Existing Living Will: No Existing Power of Health Sanitarian: Yes Resuscitation Status FULL RESUSCITATION VTE Prophylaxis VTE Risk Assessment Done? Y/N: Yes Risk Level: Moderate Social Service Consult None Apply
--- NOTE | 2017-05-16 07:52 | DIAGNOSTIC IMAGING REPORT ---
CHEST ONE VIEW PORTABLE CLINICAL HISTORY: chest pain dyspnea COMPARISON STUDY: 12/25/2012 FINDINGS: Heart top normal in terms of size. Mild chronic elevation right hemidiaphragm. Lungs are considered clear. IMPRESSION: Chronic change. No acute process. Electronically signed by: Ovi Thomson M.D. 05/16/2017 7:51 AM Dictated Date/Time: 05/16/2017 7:50 AM
[2017-05-16] MEDS ORDERED: PHARMACY GLYCEMIC MGMT CONSULT PRN (08:45)
[2017-05-16] MEDS: ATORVASTATIN 40 MG TAB PO SCH (09:00)
[2017-05-16] MEDS ORDERED: INSULIN HUMAN NPH SQ SCH ×2 (09:00→21:00)
[2017-05-16] MEDS ORDERED: METOPROLOL TARTRATE 25 MG TAB PO SCH (09:00)
[2017-05-16] MEDS ORDERED: INSULIN GLARGINE SOLOSTAR 100 UNITS/ML 3 ML PEN SC ONE (09:00)
[2017-05-16] MEDS: INSULIN ASPART 100 UNITS/ML 3 ML PEN SC SCH ×4 (09:00→21:00)
[2017-05-16] MEDS: SODIUM CHLORIDE 0.9% 1000ML 1,000 ML IV SCH (09:01)
[2017-05-16] MEDS: ASPIRIN 81 MG ECTAB PO SCH (09:01)
--- NOTE | 2017-05-16 09:35 | Pharmacy Progress Note ---
Glycemic Control Intl Consult Date of Service May 16, 2017. Scope Glycemic Pharmacist consulted by Dr Mirza on 05/16 for glycemic control and to write orders per [facility] inpatient glycemic control protocol Objective Weight (Kilograms): 121.600 Accuchecks BSG (last 24hrs): Test 05/16/17 02:22 Random Glucose 227 mg/dl (70-99) Laboratory Data (last 24hrs) Test 05/16/17 02:22 Anion Gap 9.0 mmol/L BUN/Creatinine Ratio 15.6 Blood Urea Nitrogen 20 mg/dl Creatinine 1.30 mg/dl Potassium Level 4.5 mmol/L Sodium Level 137 mmol/L White Blood Count 7.92 K/uL Red Blood Count 4.96 M/uL Hemoglobin 14.6 g/dL Hematocrit 42.7 % Mean Corpuscular Volume 86.1 fL Mean Corpuscular Hemoglobin 29.4 pg Mean Corpuscular Hemoglobin Concent 34.2 g/dl Platelet Count 208 K/uL Mean Platelet Volume 10.7 fL Neutrophils (%) (Auto) 53.7 % Lymphocytes (%) (Auto) 34.5 % Monocytes (%) (Auto) 7.6 % Eosinophils (%) (Auto) 3.4 % Basophils (%) (Auto) 0.5 % Neutrophils # (Auto) 4.26 K/uL Lymphocytes # (Auto) 2.73 K/uL Monocytes # (Auto) 0.60 K/uL Eosinophils # (Auto) 0.27 K/uL Basophils # (Auto) 0.04 K/uL HbA1c Ordered for 05/17/17 Recent Pertinent Medications Outpatient Anti-diabetic Regimen: * Novolin N 20 units qAM, 45 units qPM * Glyburide 5 mg po BID * A1c ordered for 05/17/17 Risk Factors for Insulin Resistance: * Recent Surgery: POD 0 s/p cardiac cath w JOSE MARIA x2 * Physiologic stress 2nd acute anterior STEMI * Diet: T2DM/AHA Assessment & Plan ASSESSMENT: * 81 yo M admitted for anterior STEMI s/p cardiac cath w JOSE MARIA x2 on 6/30 AM. Patient currently hyperglycemic at 260 mg/dL. * Unknown degree of outpatient control - HbA1c ordered for tomorrow. * Pt is maintained on oral antidiabetic agents (in addition to basal insulin with Novolin N) as an outpatient * Oral agents are not recommended for inpatient use d/t drug interactions, changing PO intake, and difficulty titrating for acute hyper/hypoglycemia. ADA recommends re-initiating outpatient oral agents 1-2 days prior to discharge if/ when appropriate if they were held on admission. * Will hold oral agents for admission and utilize SQ basal bolus insulin regimen which is the recommended regimen for inpatient glycemic control. * OK to transition from Novolin N to Lantus per Dr. Mirza for acute management. May consider transition back to Novolin N if/when patient becomes more stable, if considered appropriate to continue on discharge. * ADA & AACE recommend a goal blood sugar range 140-180 mg/dl for the majority of critically ill & non-critically ill patients. PLAN FOR INPATIENT GLYCEMIC CONTROL: * Hold outpatient oral diabetes medications (glyburide) * Basal insulin with LANTUS 20 units SQ x1 now then BID as follows: * 10 units for BSG < 140 mg/dL * 20 units for BSG 140+ mg/dL * Correctional Insulin with NOVOLOG per scale ACHS or Q6hrs while NPO (with overnight checks x2) * Goal Range: Low 140 mg/dL - High 180 mg/dL * Correction Factor: 20 mg/dL/unit * Nutritional / Prandial insulin per carb ratio of 1 unit per 7 grams CHO consumed * Please note that the plan above was derived based on current level of insulin resistance and hospital stress. These recommendations are appropriate for inpatient admission only. Plan of care upon discharge will need to be reassessed to avoid potential outpatient hypo/hyperglycemia. Thank you.
[2017-05-16] MEDS ORDERED: MoRPHine SULFATE 2 MG/ML CARP IV PRN (09:45)
[2017-05-16] MEDS ORDERED: CEFAZOLIN IV 1,000 MG in DEXTROSE 5% 50ML 50 ML IV SCH (09:45)
[2017-05-16] MEDS ORDERED: MoRPHine SULFATE 4 MG/ML 1 ML CARP\\VIAL IV PRN (09:45)
[2017-05-16] MEDS ORDERED: ACETAMINOPHEN/HYDROCODONE ELIX 15 ML/CUP UDP PO PRN (09:45)
[2017-05-16] MEDS ORDERED: IV FLUIDS COMPLETED PRN ×2 (10:15→14:00)
[2017-05-16] MEDS ORDERED: D5W AND 1/2NSS + 20MEQ KCL 1,000 ML IV SCH (10:45)
--- NOTE | 2017-05-16 10:55 | ECHOCARDIOGRAM REPORT ---
*NOTICE TO RECEIVING LIBERTARIAN AGENCY This information is strictly Confidential and protected under [place] law. [place] law prohibits you from making any further disclosure of this information unless further disclosure is expressly permitted by the written consent of the person to whom it pertains or is authorized by law. A general authorization for the release of medical or other information is not sufficient for this purpose. Hospital accepts no responsibility if the information is made available to any other person, INCLUDING THE PATIENT. Interpretation Summary * Name: MADHURI GARNICA Study Date: 05/16/2017 07:18 AM BP: 152/72 mmHg * Patient Location: .MSICU\S\E106\S\1 HR: 65 * : 1935 (M/d/yyy) Gender: Male Height: 69 in * Age: 81 yrs Ethnicity: CA Weight: 251 lb * Ordering Physician: Twan Cruz * Referring Physician: Self, Referred * Performed By: Linnette Alcaraz RCS * * Reason For Study: AMI * BSA: 2.3 m2 * -- Conclusions -- * 1. Mildly dilated LV with mild concentric LVH. * 2. Moderate LV dysfunction. LVEF 35-40%. Moderate inferior hypokinesis. Apical akinesis. Moderate mid to apical anterior, anteroseptal, and septal hypokinesis. * 3. Borderline dilated RV, normal RV function. * 4. Grade I diastolic dysfunction. * 5. Mild mitral regurgitation. * 6. Mildly dilated aortic root (4.2 cm). Procedure Details * A complete two-dimensional transthoracic echocardiogram was performed (2D, M-mode, Doppler and color flow Doppler). * The study was technically difficult. * There were technical limitations due to patient'spoor positioning * A contrast injection of Definity was performed to improve assessment of LV function. * Contrast was injected into an intravenous site in the left arm. * One vial of Definity ultrasound contrast was diluted in normal saline to a total volume of 10 ml. A total of '2' ml of solution was administered during imaging. * Lot # [id number] of Definity utilized for procedure. * Expiration date JUN 03. * The attending nurse who injected the contrast agent was ABNER PLAZA, RN. Left Ventricle * The left ventricle is mildly dilated. * There is mild concentric left ventricular hypertrophy. * Ejection Fraction = 35-40%. * Moderate inferior hypokinesis. Apical akinesis. Moderate mid to apical anterior, anteroseptal, and septal hypokinesis. Right Ventricle * The right ventricle is borderline dilated. * The right ventricular systolic function is normal as assessed by tricuspid annular plane systolic excursion (TAPSE) (normal >1.5 cm). Atria * The left atrium is mildly dilated. * The right atrium is mildly dilated. * No ASD detected; PFO is not assessed. Mitral Valve * The mitral valve is grossly normal. * There is mild mitral annular calcification. * Mitral stenosis is absent. * There is mild mitral regurgitation. Tricuspid Valve * The tricuspid valve is not well visualized. * There is no tricuspid stenosis. * There is trace tricuspid regurgitation. Aortic Valve * The aortic valve opens well. * The aortic valve is trileaflet. * No hemodynamically significant valvular aortic stenosis. * There is no significant aortic regurgitation. Pulmonic Valve * The pulmonary valve is inadequately visualized, but the Doppler data is adequate for interpretation. * Pulmonic stenosis is absent. * There is no significant pulmonary regurgitation. Great Vessels * The aortic Sinus(es) of Valsalva are mildly dilated. Pericardium/Pleural * There is no pericardial effusion. Left Ventricular Diastolic Function * Grade I diastolic dysfunction, (abnormal relaxation pattern). MMode 2D Measurements and Calculations IVSd 1.4 cm IVSs 2.0 cm LVIDd 4.5 cm LVIDs 3.6 cm LVPWd 1.8 cm LVPWs 2.1 cm IVS/LVPW 0.77 FS 21.6 % EDV(Teich) 93.8 ml ESV(Teich) 52.6 ml EF(Teich) 43.9 % EDV(cubed) 92.9 ml ESV(cubed) 44.7 ml EF(cubed) 51.8 % % IVS thick 50.7 % % LVPW thick 17.5 % LV mass(C)d 295.8 grams LV mass(C)dI 130.0 grams/m\S\2 LV mass(C)s 338.5 grams LV mass(C)sI 148.8 grams/m\S\2 SV(Teich) 41.2 ml SI(Teich) 18.1 ml/m\S\2 SV(cubed) 48.1 ml SI(cubed) 21.2 ml/m\S\2 Ao root diam 4.3 cm Ao root area 14.6 cm\S\2 LA dimension 4.2 cm LA/Ao 0.98 LVOT diam 2.1 cm LVOT area 3.6 cm\S\2 LVAd ap4 40.1 cm\S\2 LVLd ap4 9.0 cm EDV(MOD-sp4) 139.6 ml EDV(sp4-el) 151.6 ml LVAs ap4 29.8 cm\S\2 LVLs ap4 7.5 cm ESV(MOD-sp4) 97.5 ml ESV(sp4-el) 100.2 ml EF(MOD-sp4) 30.1 % EF(sp4-el) 33.9 % LVAd ap2 44.4 cm\S\2 LVLd ap2 9.1 cm EDV(MOD-sp2) 177.3 ml EDV(sp2-el) 183.2 ml LVAs ap2 34.2 cm\S\2 LVLs ap2 8.1 cm ESV(MOD-sp2) 116.1 ml ESV(sp2-el) 122.5 ml EF(MOD-sp2) 34.5 % EF(sp2-el) 33.1 % LVLd %diff 1.4 % EDV(MOD-bp) 155.5 ml LVLs %diff 7.0 % ESV(MOD-bp) 110.0 ml EF(MOD-bp) 29.3 % SV(MOD-sp4) 42.1 ml SI(MOD-sp4) 18.5 ml/m\S\2 SV(MOD-sp2) 61.3 ml SI(MOD-sp2) 26.9 ml/m\S\2 SV(MOD-bp) 45.5 ml SI(MOD-bp) 20.0 ml/m\S\2 SV(sp4-el) 51.4 ml SI(sp4-el) 22.6 ml/m\S\2 SV(sp2-el) 60.7 ml SI(sp2-el) 26.7 ml/m\S\2 Doppler Measurements and Calculations MV E max von 53.0 cm/sec MV A max von 90.5 cm/sec MV E/A 0.59 MV P1/2t max von 80.0 cm/sec MV P1/2t 97.8 msec MVA(P1/2t) 2.2 cm\S\2 MV dec slope 239.7 cm/sec\S\2 MV dec time 0.27 sec Ao V2 max 89.5 cm/sec Ao max PG 3.2 mmHg Ao max PG (full) 1.3 mmHg RAJAT(V,A) 2.8 cm\S\2 RAJAT(V,D) 2.8 cm\S\2 LV V1 max PG 1.9 mmHg LV V1 max 69.7 cm/sec MR max von 446.7 cm/sec MR max PG 80.2 mmHg PA V2 max 85.9 cm/sec PA max PG 3.0 mmHg
--- NOTE | 2017-05-16 11:39 | Hospitalist Progress Note ---
Hospitalist Progress Note Date of Service May 16, 2017. (Nelida Sellers ., YOCASTAC) Subjective Pt evaluation today including: conversation w/ patient, conversation w/ family (- at bedside ), physical exam, chart review, lab review, review of studies , review of inpatient medication list Voiding: no voiding problems, no incontinence Patient states he is feeling well. Denies chest pain. Ate a little of lunch- +decreased appetite. Patient denies any fever, chills, sweats, lightheadedness, dizziness, vision changes, CP, palpitations, edema, SOB, wheezing, cough, abdominal pain, nausea, vomiting, diarrhea, urinary symptoms, melena, numbness/tingling, weakness, muscle/joint pain, anxiety/depression, active bleeding, or new skin discoloration/changes. (Nelida Sellers, MAGALIS-C) Medications Current Inpatient Medications Medications (Trade) Dose Ordered Sig/Young Route Start Time Stop Time Status Last Admin Dose Admin Sodium Chloride 1,000 ml @ 125 mls/hr Q8H IV 05/16/17 06:15 06/15/17 06:14 05/16/17 09:01 125 MLS/HR Aspirin (Ecotrin Tab) 81 mg QAM PO 05/16/17 09:00 06/15/17 08:59 05/16/17 09:01 81 MG Atorvastatin Calcium (Lipitor Tab) 80 mg QAM PO 05/16/17 09:00 06/15/17 08:59 05/16/17 09:00 80 MG Metoprolol Tartrate (Lopressor Tab) 12.5 mg Q12 PO 05/16/17 09:00 06/15/17 08:59 05/16/17 09:01 12.5 MG Acetaminophen (Tylenol Tab) 650 mg Q4H PRN PO 05/16/17 05:45 06/15/17 05:44 Ticagrelor (Brilinta Cap) 90 mg BID PO 05/16/17 21:00 06/15/17 20:59 Ondansetron HCl (Zofran Inj) 4 mg Q6H PRN IV 05/16/17 06:15 06/15/17 06:14 Insulin Aspart (novoLOG ASPART) SLIDING SCALE If C... ACHS SC 05/16/17 06:45 06/15/17 06:44 6/30/17 09:00 9 UNITS Glucose (Glucose 40% Gel) UD PRN PO 05/16/17 06:15 06/15/17 06:14 Glucose (Glucose Chew Tab) 1 tabs UD PRN PO 05/16/17 06:15 06/15/17 06:14 Dextrose (Dextrose 50% 50ML Syringe) 50 ml UD PRN IV 05/16/17 06:15 06/15/17 06:14 Glucagon (Glucagon Inj) 1 mg UD PRN SQ 05/16/17 06:15 06/15/17 06:14 Miscellaneous Information (Consult Glycemic Management Pharmacy) 1 ea UD PRN N/A 05/16/17 08:45 06/15/17 08:44 Insulin Aspart (novoLOG ASPART) SLIDING SCALE If C... TODAY@0000,0400 [place] 05/17/17 00:00 05/17/17 04:01 Insulin Glargine (Lantus Solostar Pen) BID SC 05/16/17 21:00 06/15/17 20:59 (Nelida Sellers, JAVIER) Objective Vital Signs Date Time Temp Pulse Resp B/P (MAP) Pulse Ox O2 Delivery O2 Flow Rate FiO2 05/16/17 10:00 86 20 162/79 (106) 95 Nasal Cannula 2.0 05/16/17 08:16 36.5 68 20 144/84 94 05/16/17 08:00 73 22 157/76 94 05/16/17 08:00 Room Air 05/16/17 07:12 66 25 142/75 (97) 95 Room Air 05/16/17 07:00 63 23 93 05/16/17 07:00 63 23 93 05/16/17 06:30 68 15 124/72 (89) 92 Room Air 05/16/17 06:15 69 12 123/89 (100) 92 Room Air 05/16/17 06:00 62 20 124/65 (84) 92 Room Air 05/16/17 05:45 36.3 66 17 123/89 93 Room Air 05/16/17 05:35 66 16 152/72 (98) 92 Room Air 05/16/17 05:25 66 16 140/72 (94) 92 Room Air 05/16/17 03:49 79 144/77 05/16/17 03:32 88 159/89 97 Nasal Cannula 2.0 05/16/17 03:29 81 149/81 05/16/17 02:50 96 20 143/66 94 Nasal Cannula 2.0 05/16/17 02:45 93 20 158/94 93 Nasal Cannula 2.0 05/16/17 02:40 94 20 148/93 94 Room Air 05/16/17 02:31 93 05/16/17 02:31 Room Air 05/16/17 02:30 90 20 178/92 94 Room Air 05/16/17 02:23 95 Room Air 05/16/17 02:16 36.4 51 20 191/89 93 Room Air (Nelida Sellers, PA-C) Physical Exam General Appearance: no apparent distress, + obese, + pertinent finding (O2 2L NC) Eyes: normal inspection, PERRL ENT: hearing grossly normal Neck: supple Respiratory/Chest: lungs clear, no respiratory distress, no accessory muscle use Cardiovascular: regular rate, rhythm Abdomen: normal bowel sounds, non tender, soft Extremities: no pedal edema, no calf tenderness Neurologic/Psychiatric: alert, normal mood/affect, oriented x 3 Skin: normal color, warm/dry, no rash (Nelida Sellers, PA-C) Laboratory Results Last 24 Hours Test 05/16/17 02:22 05/16/17 04:40 05/16/17 05:05 05/16/17 06:49 White Blood Count 7.92 K/uL Red Blood Count 4.96 M/uL Hemoglobin 14.6 g/dL Hematocrit 42.7 % Mean Corpuscular Volume 86.1 fL Mean Corpuscular Hemoglobin 29.4 pg Mean Corpuscular Hemoglobin Concent 34.2 g/dl Platelet Count 208 K/uL Mean Platelet Volume 10.7 fL Neutrophils (%) (Auto) 53.7 % Lymphocytes (%) (Auto) 34.5 % Monocytes (%) (Auto) 7.6 % Eosinophils (%) (Auto) 3.4 % Basophils (%) (Auto) 0.5 % Neutrophils # (Auto) 4.26 K/uL Lymphocytes # (Auto) 2.73 K/uL Monocytes # (Auto) 0.60 K/uL Eosinophils # (Auto) 0.27 K/uL Basophils # (Auto) 0.04 K/uL RDW Standard Deviation 40.9 fL RDW Coefficient of Variation 13.0 % Immature Granulocyte % (Auto) 0.3 % Immature Granulocyte # (Auto) 0.02 K/uL Nucleated RBC Absolute Count (auto) 0.02 K/uL Nucleated Red Blood Cells % 0.2 % Prothrombin Time 10.1 SECONDS Prothromb Time International Ratio 0.9 Activated Partial Thromboplast Time 26.7 SECONDS Partial Thromboplastin Ratio 1.0 Sodium Level 137 mmol/L Potassium Level 4.5 mmol/L Chloride Level 106 mmol/L Carbon Dioxide Level 22 mmol/L Anion Gap 9.0 mmol/L Blood Urea Nitrogen 20 mg/dl Creatinine 1.30 mg/dl Est Creatinine Clear Calc Drug Dose 57.4 ml/min Estimated GFR () 60.1 Estimated GFR (Non- 51.9 BUN/Creatinine Ratio 15.6 Random Glucose 227 mg/dl Calcium Level 8.9 mg/dl Total Bilirubin 0.5 mg/dl Aspartate Amino Transf (AST/SGOT) 102 U/L Alanine Aminotransferase (ALT/SGPT) 30 U/L Alkaline Phosphatase 62 U/L Total Creatine Kinase 957 U/L Creatine Kinase MB 100.4 ng/ml Creatine Kinase MB Ratio 10.5 Troponin I 17.400 ng/ml 125.000 ng/ml Pro-B-Type Natriuretic Peptide 998 pg/ml Total Protein 7.2 gm/dl Albumin 3.7 gm/dl Globulin 3.5 gm/dl Albumin/Globulin Ratio 1.1 Kaolin Activated Coagulation Time 208 SECONDS 219 SECONDS Test 05/16/17 11:05 Bedside Glucose 223 mg/dl (Nelida Sellers, MAGALIS-C) Assessment and Plan Patient is a 81-year-old male, PMHx of HTN, T2DM, hypercholesterolemia, osteoarthritis, chronic back pain, and prior SDH after fall requiring craniotomy 7 yrs ago, who presented to the ED w/ complaints of chest pain. Anterior STEMI s/p 2 drug-eluting stents in the LAD by Dr. Cruz on 05/16: - Admitted to ICU s/p catheterization- mail examiner consulted - O2 protocol, wean as tolerated- does NOT wear O2 supplement at home - ECHO- Mildly dilated LV with mild concentric LVH. Moderate LV dysfunction. LVEF 35-40%. Moderate inferior hypokinesis. Apical akinesis. Moderate mid to apical anterior, anteroseptal, and septal hypokinesis. Borderline dilated RV, normal RV function. Grade I diastolic dysfunction. Mild mitral regurgitation. Mildly dilated aortic root (4.2 cm). - Metoprolol 12.5 mg BID, Brilinta 90 mg BID, ASA 81 mg daily - IV Morphine and Tylenol PRN pain - Cardiology following T2DM: - Held home regimen of: Glyburide 5 mg BID and Novolin N 20 u SQ QAM and 45 u QPM - Pharmacy consulted for glycemic management: Lantus 20 u given on 05/16 x1, then Lantus protocol and BSG ACHS w/ sliding insulin scale - ha1c pending HTN: Lisinopril 20 mg daily Hypercholesterolemia: - Atorvastatin 80 mg daily - Lipid panel pending Abnormal LFTs: - Follow serially - RUQ US pending CVA/brain surgery 7 years ago- noted DVT prophylaxis: Brilinta Dispo: From home, lives w/ - discharge uncertain at this time (Nelida Sellers, PA-C) I personally examined pt and verified all bee points w T Verito HERRERA feeling better - had some chest pain a little earlier but was fairly recent from [facility] then, none for hours. BPs noted - cardiology being informed as well. initiated lifestyle discussions vitals noted nad breathing unlabored no pallor or icterus STEMI - now stable s/p stenting. 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 await A1c DVT proph - heparin SQ (Markel Cruz D.O.)
[2017-05-16] MEDS ORDERED: LISINOPRIL 20 MG TAB PO STA (11:45)
--- NOTE | 2017-05-16 15:55 | Cardiology Follow-Up ---
Subjective Subjective Date of Service: May 16, 2017. Pt evaluation today including: conversation w/ patient, conversation w/ family , physical exam, chart review, lab review, review of studies, review of inpatient medication list Problem List Medical Problems: (1) Hyperglycemia Status: Acute (2) STEMI (ST elevation myocardial infarction) Status: Acute Review of Systems Constitutional: No fever, No chills ENT: No hearing loss Respiratory: No cough, No sputum Cardiac: No chest pain, No orthopnea Abdomen: No pain, No nausea Male : No dysuria Psychiatric: No depression symptoms Heme: No abnormal bleeding/bruising Endo: No fatigue Skin: No rash Objective Vital Signs Last Vital Signs Documentation Date Time Temp Pulse Resp B/P (MAP) Pulse Ox O2 Delivery O2 Flow Rate FiO2 05/16/17 10:00 86 20 162/79 (106) 95 Nasal Cannula 2.0 05/16/17 08:16 36.5 Physical Exam: General Appearance: no apparent distress, + obese, + pertinent finding (O2 2L NC) ENT: hearing grossly normal Neck: supple Respiratory/Chest: lungs clear, no respiratory distress, no accessory muscle use Cardiovascular: regular rate, rhythm Abdomen: normal bowel sounds, non tender, soft Extremities: no pedal edema, no calf tenderness, + pertinent finding (No access site ecchymosis, hematoma.) Neurologic/Psychiatric: alert, normal mood/affect, oriented x 3 Skin: normal color, warm/dry, no rash Assessment and Plan 1. Anterior STEMI/Occluded LAD post PPCI with JOSE MARIA x 2 2. 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 Ischemic cardiomyopathy 4. Hypertension 5. Frequent PVCs 6. Type 2 DM Patient chest pain free this afternoon and hemodynamically stable. Moderately reduced LV function on echo. Awaiting troponin peak. Frequent PVCs on telemetry -- Continue ASA/Ticagrelor -- Increase metoprolol to 25 mg BID --> continue to titrate as BP/HR allow -- Increase lisinopril to home 20mg daily -- continue statin -- Will tentatively plan on PCI of proximal-mid circumflex on friday. Will continue to follow Medications: Current Inpatient Medications Medications (Trade) Dose Ordered Sig/Young Route Start Time Stop Time Status Last Admin Dose Admin Sodium Chloride 1,000 ml @ 125 mls/hr Q8H IV 05/16/17 06:15 7/30/17 06:14 05/16/17 09:01 125 MLS/HR Aspirin (Ecotrin Tab) 81 mg QAM PO 05/16/17 09:00 06/15/17 08:59 05/16/17 09:01 81 MG Atorvastatin Calcium (Lipitor Tab) 80 mg QAM PO 05/16/17 09:00 06/15/17 08:59 05/16/17 09:00 80 MG Metoprolol Tartrate (Lopressor Tab) 12.5 mg Q12 PO 05/16/17 09:00 06/15/17 08:59 05/16/17 09:01 12.5 MG Acetaminophen (Tylenol Tab) 650 mg Q4H PRN PO 05/16/17 05:45 06/15/17 05:44 Ticagrelor (Brilinta Cap) 90 mg BID PO 05/16/17 21:00 06/15/17 20:59 Ondansetron HCl (Zofran Inj) 4 mg Q6H PRN IV 05/16/17 06:15 06/15/17 06:14 Insulin Aspart (novoLOG ASPART) SLIDING SCALE If C... ACHS SC 05/16/17 06:45 06/15/17 06:44 05/16/17 12:39 14 UNITS Glucose (Glucose 40% Gel) UD PRN PO 05/16/17 06:15 06/15/17 06:14 Glucose (Glucose Chew Tab) 1 tabs UD PRN PO 05/16/17 06:15 06/15/17 06:14 Dextrose (Dextrose 50% 50ML Syringe) 50 ml UD PRN IV 05/16/17 06:15 06/15/17 06:14 Glucagon (Glucagon Inj) 1 mg UD PRN SQ 05/16/17 06:15 06/15/17 06:14 Miscellaneous Information (Consult Glycemic Management Pharmacy) 1 ea UD PRN N/A 05/16/17 08:45 06/15/17 08:44 Insulin Aspart (novoLOG ASPART) SLIDING SCALE If C... TODAY@0000,0400 [place] 05/17/17 00:00 05/17/17 04:01 Insulin Glargine (Lantus Solostar Pen) BID SC 05/16/17 21:00 7/30/17 20:59 Miscellaneous (Iv Fluids Completed) 1 ea PRN PRN N/A 05/16/17 14:00 05/16/18 13:59 Lab Results: 05/16/17 02:22 Red Blood Count 4.96, Mean Corpuscular Volume 86.1, Mean Corpuscular Hemoglobin 29.4, Mean Corpuscular Hemoglobin Concent 34.2, Mean Platelet Volume 10.7, Neutrophils (%) (Auto) 53.7, Lymphocytes (%) (Auto) 34.5, Monocytes (%) (Auto) 7.6, Eosinophils (%) (Auto) 3.4, Basophils (%) (Auto) 0.5, Neutrophils # (Auto) 4.26, Lymphocytes # (Auto) 2.73, Monocytes # (Auto) 0.60, Eosinophils # (Auto) 0.27, Basophils # (Auto) 0.04 05/16/17 02:22 Test 05/16/17 02:22 05/16/17 05:05 05/16/17 11:05 05/16/17 13:56 White Blood Count 7.92 K/uL (4.8-10.8) Red Blood Count 4.96 M/uL (4.7-6.1) Hemoglobin 14.6 g/dL (14.0-18.0) Hematocrit 42.7 % (42-52) Mean Corpuscular Volume 86.1 fL (80-100) Mean Corpuscular Hemoglobin 29.4 pg (25-34) Mean Corpuscular Hemoglobin Concent 34.2 g/dl (32-36) Platelet Count 208 K/uL (130-400) Mean Platelet Volume 10.7 fL (7.4-10.4) Neutrophils (%) (Auto) 53.7 % Lymphocytes (%) (Auto) 34.5 % Monocytes (%) (Auto) 7.6 % Eosinophils (%) (Auto) 3.4 % Basophils (%) (Auto) 0.5 % Neutrophils # (Auto) 4.26 K/uL (1.4-6.5) Lymphocytes # (Auto) 2.73 K/uL (1.2-3.4) Monocytes # (Auto) 0.60 K/uL (0.11-0.59) Eosinophils # (Auto) 0.27 K/uL (0-0.5) Basophils # (Auto) 0.04 K/uL (0-0.2) RDW Standard Deviation 40.9 fL (36.4-46.3) RDW Coefficient of Variation 13.0 % (11.5-14.5) Immature Granulocyte % (Auto) 0.3 % Immature Granulocyte # (Auto) 0.02 K/uL (0.00-0.02) Nucleated RBC Absolute Count (auto) 0.02 K/uL (0-0) Nucleated Red Blood Cells % 0.2 % Prothrombin Time 10.1 SECONDS (9.0-12.0) Prothromb Time International Ratio 0.9 (0.9-1.1) Activated Partial Thromboplast Time 26.7 SECONDS (21.0-31.0) Partial Thromboplastin Ratio 1.0 Anion Gap 9.0 mmol/L (3-11) Est Creatinine Clear Calc Drug Dose 57.4 ml/min Estimated GFR () 60.1 Estimated GFR (Non- 51.9 BUN/Creatinine Ratio 15.6 (10-20) Calcium Level 8.9 mg/dl (8.5-10.1) Total Bilirubin 0.5 mg/dl (0.2-1) Aspartate Amino Transf (AST/SGOT) 102 U/L (15-37) Alanine Aminotransferase (ALT/SGPT) 30 U/L (12-78) Alkaline Phosphatase 62 U/L (45-117) Total Creatine Kinase 957 U/L (39-308) Creatine Kinase MB 100.4 ng/ml (0.5-3.6) Creatine Kinase MB Ratio 10.5 (0-3.0) Pro-B-Type Natriuretic Peptide 998 pg/ml (0-1800) Total Protein 7.2 gm/dl (6.4-8.2) Albumin 3.7 gm/dl (3.4-5.0) Globulin 3.5 gm/dl (2.5-4.0) Albumin/Globulin Ratio 1.1 (0.9-2) Kaolin Activated Coagulation Time 219 SECONDS (94-140) Bedside Glucose 223 mg/dl (70-99) Date/Time Source Procedure Growth Status 05/16/17 05:50 Nasal MRSA DNA Surveillance Screen - Final Specimen Positive for MRSA by DNA Probe Complete
--- NOTE | 2017-05-16 16:03 | Critical Care Consultation ---
Critical Care Consultation Date of Consultation: May 16, 2017. Attending Physician: Igor Rojas M.D. Reason for Consultation: Medical care status post cardiac catheterization History of Present Illness The patient is a 81-year-old gentleman admitted to the intensive care unit last night after having a cardiac catheterization. I was not notified of the admission or consultation. I happened to find out about it when I called into the ICU at 640 this morning. The patient started to have pain in the middle of his chest around 6 PM yesterday. His says that he didn't feel like eating dinner but didn't complain of anything. He ate dinner and she went to bed. Around 1 in the morning he woke her up and asked her if she could take him to the hospital. She reports he was diaphoretic and looked short of breath. He describes the pain as 8/10. He took 2 aspirin and was seen in the emergency department. The initial EKG showed ST segment elevations in V2 through V4 with some bigeminy. He was given nitroglycerin 0.4 mg sublingual 2 and a dose of Lopressor. He was loaded with Tidagralor 180 mg and taken to the cardiac catheterization lab where he had to stents placed in his LAD. He has multivessel coronary artery disease. Please see his formal cardiac catheterization report for full details. He has no complaints presently. He received several milligrams of morphine for chest pain earlier today. He also has some chronic back pain. He denies shortness of breath and is sitting in a chair. Of note, he is a diabetic and has a history of hypertension. He also has a history of subdural hematoma status post craniotomy. Past Medical/Surgical History Subdural hematoma status post craniotomy. This was a result of a fall. Diabetes mellitus CVA Hypertension Chronic back pain Family History Cancer Diabetes mellitus Heart disease Social History He has never smoked. He drinks alcohol socially. He is to his . He was to her for 17 years, they got and then eventually they will be about 7 years later. Smoking Status: Never Smoker Smokeless Tobacco Use: No Drug Use: none Marital Status: Housing Status: lives with family Occupation Status: retired Allergies Coded Allergies: Aspirin (Verified Adverse Reaction, Severe, fell=subdural=wouldn't stop bleeding, 11/02/14) Metformin (Verified Adverse Reaction, Severe, diarrhea, 11/02/14) Home Medications Scheduled Glyburide (Micronase), 5 MG PO BID Insulin Human NPH (Novolin N), 20 UNITS SQ QAM Insulin Human NPH (Novolin N), 45 UNITS SQ QPM Lisinopril (Zestril), 20 MG PO BID Metoprolol Tartrate (Lopressor) (Lopressor), 12.5 MG PO BID Current Inpatient Medications Current Inpatient Medications Medications (Trade) Dose Ordered Sig/Young Route Start Time Stop Time Status Last Admin Dose Admin Sodium Chloride 1,000 ml @ 125 mls/hr Q8H IV 05/16/17 06:15 06/15/17 06:14 05/16/17 09:01 125 MLS/HR Aspirin (Ecotrin Tab) 81 mg QAM PO 05/16/17 09:00 06/15/17 08:59 05/16/17 09:01 81 MG Atorvastatin Calcium (Lipitor Tab) 80 mg QAM PO 05/16/17 09:00 06/15/17 08:59 05/16/17 09:00 80 MG Metoprolol Tartrate (Lopressor Tab) 12.5 mg Q12 PO 05/16/17 09:00 06/15/17 08:59 05/16/17 09:01 12.5 MG Acetaminophen (Tylenol Tab) 650 mg Q4H PRN PO 05/16/17 05:45 06/15/17 05:44 Ticagrelor (Brilinta Cap) 90 mg BID PO 05/16/17 21:00 06/15/17 20:59 Ondansetron HCl (Zofran Inj) 4 mg Q6H PRN IV 05/16/17 06:15 06/15/17 06:14 Insulin Aspart (novoLOG ASPART) SLIDING SCALE If C... ACHS SC 05/16/17 06:45 06/15/17 06:44 05/16/17 12:39 14 UNITS Glucose (Glucose 40% Gel) UD PRN PO 05/16/17 06:15 06/15/17 06:14 Glucose (Glucose Chew Tab) 1 tabs UD PRN PO 05/16/17 06:15 06/15/17 06:14 Dextrose (Dextrose 50% 50ML Syringe) 50 ml UD PRN IV 05/16/17 06:15 06/15/17 06:14 Glucagon (Glucagon Inj) 1 mg UD PRN SQ 05/16/17 06:15 06/15/17 06:14 Miscellaneous Information (Consult Glycemic Management Pharmacy) 1 ea UD PRN N/A 05/16/17 08:45 06/15/17 08:44 Insulin Aspart (novoLOG ASPART) SLIDING SCALE If C... TODAY@0000,0400 SC 05/17/17 00:00 05/17/17 04:01 Insulin Glargine (Lantus Solostar Pen) BID SC 05/16/17 21:00 06/15/17 20:59 Miscellaneous (Iv Fluids Completed) 1 ea PRN PRN N/A 05/16/17 14:00 05/16/18 13:59 Heparin Sodium (Porcine) (Heparin Sq 5000 Unit/0.5ml) 5,000 unit Q12 SQ 05/16/17 21:00 06/15/17 20:59 Review of Systems He denies loss of consciousness, dizziness, he may have been nauseated. He denies vomiting, cough, fevers, chills, hemoptysis, abdominal pain, constipation , diarrhea, lower extremity edema. Additional review of systems are negative or noncontributory to 12 point system other than what is presented in history present illness. Physical Exam Date Time Temp Pulse Resp B/P (MAP) Pulse Ox O2 Delivery O2 Flow Rate FiO2 05/16/17 10:00 86 20 162/79 (106) 95 Nasal Cannula 2.0 05/16/17 08:16 36.5 68 20 144/84 94 05/16/17 08:00 73 22 157/76 94 05/16/17 08:00 Room Air 05/16/17 07:12 66 25 142/75 (97) 95 Room Air 05/16/17 07:00 63 23 93 05/16/17 07:00 63 23 93 05/16/17 06:30 68 15 124/72 (89) 92 Room Air 05/16/17 06:15 69 12 123/89 (100) 92 Room Air 05/16/17 06:00 62 20 124/65 (84) 92 Room Air 05/16/17 05:45 36.3 66 17 123/89 93 Room Air 05/16/17 05:35 66 16 152/72 (98) 92 Room Air 05/16/17 05:25 66 16 140/72 (94) 92 Room Air 05/16/17 03:49 79 144/77 05/16/17 03:32 88 159/89 97 Nasal Cannula 2.0 05/16/17 03:29 81 149/81 05/16/17 02:50 96 20 143/66 94 Nasal Cannula 2.0 05/16/17 02:45 93 20 158/94 93 Nasal Cannula 2.0 05/16/17 02:40 94 20 148/93 94 Room Air 05/16/17 02:31 93 05/16/17 02:31 Room Air 05/16/17 02:30 90 20 178/92 94 Room Air 05/16/17 02:23 95 Room Air 05/16/17 02:16 36.4 51 20 191/89 93 Room Air He is awake alert and in no distress. He is sitting in a chair HEENT pupils react bilaterally. Oral mucosa is moist. Posterior pharynx is clear Lungs: Bibasilar rales no rhonchi or wheezes. Heart: regular rate and rhythm. I don't hear any murmurs. Chest: Symmetric expansion Abdomen: Limited exam due to his seated position. It is round and nontender. Perhaps mildly distended. Active bowel sounds. Extremities: Warm, no edema. Radial and dorsalis pedis pulses are 1+ bilaterally. Radial artery catheterization site on the right is without hematoma. Neuro: He follows commands and moves all 4 extremities. He easily carries on a conversation. No facial droop. Sensation grossly intact. Laboratory Results Last 24 Hours Test 05/16/17 02:22 05/16/17 04:40 05/16/17 05:05 05/16/17 06:10 White Blood Count 7.92 K/uL Red Blood Count 4.96 M/uL Hemoglobin 14.6 g/dL Hematocrit 42.7 % Mean Corpuscular Volume 86.1 fL Mean Corpuscular Hemoglobin 29.4 pg Mean Corpuscular Hemoglobin Concent 34.2 g/dl Platelet Count 208 K/uL Mean Platelet Volume 10.7 fL Neutrophils (%) (Auto) 53.7 % Lymphocytes (%) (Auto) 34.5 % Monocytes (%) (Auto) 7.6 % Eosinophils (%) (Auto) 3.4 % Basophils (%) (Auto) 0.5 % Neutrophils # (Auto) 4.26 K/uL Lymphocytes # (Auto) 2.73 K/uL Monocytes # (Auto) 0.60 K/uL Eosinophils # (Auto) 0.27 K/uL Basophils # (Auto) 0.04 K/uL RDW Standard Deviation 40.9 fL RDW Coefficient of Variation 13.0 % Immature Granulocyte % (Auto) 0.3 % Immature Granulocyte # (Auto) 0.02 K/uL Nucleated RBC Absolute Count (auto) 0.02 K/uL Nucleated Red Blood Cells % 0.2 % Prothrombin Time 10.1 SECONDS Prothromb Time International Ratio 0.9 Activated Partial Thromboplast Time 26.7 SECONDS Partial Thromboplastin Ratio 1.0 Sodium Level 137 mmol/L Potassium Level 4.5 mmol/L Chloride Level 106 mmol/L Carbon Dioxide Level 22 mmol/L Anion Gap 9.0 mmol/L Blood Urea Nitrogen 20 mg/dl Creatinine 1.30 mg/dl Est Creatinine Clear Calc Drug Dose 57.4 ml/min Estimated GFR () 60.1 Estimated GFR (Non- 51.9 BUN/Creatinine Ratio 15.6 Random Glucose 227 mg/dl Calcium Level 8.9 mg/dl Total Bilirubin 0.5 mg/dl Aspartate Amino Transf (AST/SGOT) 102 U/L Alanine Aminotransferase (ALT/SGPT) 30 U/L Alkaline Phosphatase 62 U/L Total Creatine Kinase 957 U/L Creatine Kinase MB 100.4 ng/ml Creatine Kinase MB Ratio 10.5 Troponin I 17.400 ng/ml Pro-B-Type Natriuretic Peptide 998 pg/ml Total Protein 7.2 gm/dl Albumin 3.7 gm/dl Globulin 3.5 gm/dl Albumin/Globulin Ratio 1.1 Kaolin Activated Coagulation Time 208 SECONDS 219 SECONDS Bedside Glucose 260 mg/dl Test 05/16/17 06:49 05/16/17 11:05 05/16/17 13:56 Troponin I 125.000 ng/ml Bedside Glucose 223 mg/dl Diagnostic Results Echocardiogram report has been reviewed. Ejection fraction is 35-40%. He has grade 1 diastolic dysfunction. EKGs have been reviewed. Portable chest x-ray was reviewed. Assessment & Plan Impression: 1. Acute anterior ST segment elevation myocardial infarction 2. Multivessel coronary artery disease status post LAD stent 2 today, doing well 3. Left ventricular dysfunction, ejection fraction 35-40%. Grade 1 diastolic dysfunction 4. Diabetes mellitus with hyperglycemia, he takes NPH as an outpatient but is on Lantus presently. 5. Hypertension, lisinopril was restarted today. 6. Chronic back pain 7. History of subdural hematoma Plan: Cardiovascular: Continue beta terell, aspirin, statin, Ticagrlor, JOAQUIN inhibitor. He may have a second cardiac catheterization in several days. Continue to trend troponins. The last was 125. Pulmonary: Encourage mobilization and deep breathing Neuro: Morphine for pain. Consider Ultram as well for chronic pain. GI: Cardiac diet. Proton pump inhibitor for GI prophylaxis for now. Renal: No acute active issues. Endocrine: Lantus and NovoLog sliding scale. Glycemic consult. Heme: SCDs for DVT prophylaxis. Mobilize. Infectious disease: No acute active issues. I have discussed his care in detail with Dr. Cruz as well as both the patient and his . Questions were answered. Thank you for asking me to see this nice gentleman.
[2017-05-16] MEDS ORDERED: TRAMADOL HCL 50 MG TAB PO PRN (16:15)
[2017-05-16] MEDS ORDERED: LISINOPRIL 10 MG TAB PO ONE (20:00)
[2017-05-16] MEDS: TICAGRELOR 90 MG TAB PO SCH (20:43)
[2017-05-16] MEDS: METOPROLOL TARTRATE 25 MG TAB PO SCH (20:44)
[2017-05-16] MEDS: HEPARIN SOD 5000 UNIT/0.5 ML CARP SQ SCH (21:07)
[2017-05-16] MEDS: INSULIN GLARGINE SOLOSTAR 100 UNITS/ML 3 ML PEN SC SCH (21:08)
[2017-05-17] VITALS (12 sets, daily range): BP systolic 107–153; BP diastolic 58–93; PULSE 60–98; TEMP 36.3–36.7; O2SAT 92–96
[2017-05-17] MEDS: INSULIN ASPART 100 UNITS/ML 3 ML PEN SC SCH ×6 (04:00→21:00)
[2017-05-17 05:20] LABS: BASO % 0.3 %; BASO ABS # 0.02 K/uL (0-0.2); COMPLETE YES; EOS % 2.9 %; HEMATOCRIT 38.5 % (42-52); IG% 0.4 %; LYMPH ABS # 1.61 K/uL (1.2-3.4); MEAN CELL VOLUME 86.7 fL (80-100); MEAN CORPUSCULAR HEMOGLOBIN 29.5 pg (25-34); MEAN PLATELET VOLUME 10.6 fL (7.4-10.4); MONO % 10.7 %; NEUT % 64.7 %; PLATELET COUNT 178 K/uL (130-400); RED BLOOD COUNT 4.44 M/uL (4.7-6.1); WHITE BLOOD COUNT 7.66 K/uL (4.8-10.8)
[2017-05-17 05:48] LABS: BUN/CREATININE RATIO 16.7 (10-20); CREATININE 0.91 mg/dl (0.60-1.40); POTASSIUM 4.4 mmol/L (3.5-5.1)
[2017-05-17] MEDS: SODIUM CHLORIDE 0.9% 1000ML 1,000 ML IV SCH (05:48)
[2017-05-17 06:02] LABS: CALCIUM 8.6 mg/dl (8.5-10.1); CHOLESTEROL/HDL RATIO 3.6; PHOSPHORUS 2.6 mg/dl (2.5-4.9)
[2017-05-17 08:14] LABS: ESTIMATED AVERAGE GLUCOSE 180 mg/dl; HA1C FLAG Normal (Normal)
[2017-05-17] MEDS: LISINOPRIL 20 MG TAB PO SCH (08:26)
[2017-05-17] MEDS: METOPROLOL TARTRATE 25 MG TAB PO SCH (08:26)
[2017-05-17] MEDS: ASPIRIN 81 MG ECTAB PO SCH (08:26)
[2017-05-17] MEDS: ATORVASTATIN 40 MG TAB PO SCH (08:26)
[2017-05-17] MEDS: TICAGRELOR 90 MG TAB PO SCH ×2 (08:27→21:20)
[2017-05-17] MEDS: INSULIN GLARGINE SOLOSTAR 100 UNITS/ML 3 ML PEN SC SCH ×2 (08:31→21:23)
[2017-05-17] MEDS: HEPARIN SOD 5000 UNIT/0.5 ML CARP SQ SCH ×2 (08:31→21:22)
[2017-05-17] MEDS ORDERED: PANTOprazole SOD 40 MG TAB PO SCH (09:00)
--- NOTE | 2017-05-17 13:15 | Progress Note ---
Subjective Date of Service: May 17, 2017. Subjective Pt evaluation today including: conversation w/ patient, conversation w/ family , physical exam, chart review, lab review, review of inpatient medication list feeling better, no further problems. awaiting repeat [facility] friday. eating lunch no difficulty discussed eating habits - breakfast cheerios and fruit, black coffee, notes usually 2 cookies because of waking up w low sugar. lunch hot dog or wings or soup (chili or tomato), coffee. dinner usually lean meat and vegetable but also potatoes. nighttime snacks on chips, pretzels, cheese curls, etc. notes that he often hurts too much to do much exercise. no other acute complaints, ros otherwise negative except for as above Problem List Medical Problems: (1) Hyperglycemia Status: Acute (2) STEMI (ST elevation myocardial infarction) Status: Acute Review of Systems all other ROS otherwise negative except for as above Objective Vital Signs Date Time Temp Pulse Resp B/P (MAP) Pulse Ox O2 Delivery O2 Flow Rate FiO2 05/17/17 08:34 36.6 94 20 139/92 (108) 93 Room Air 05/17/17 08:00 Room Air 05/17/17 06:00 78 20 94 Room Air 05/17/17 04:00 Room Air 05/17/17 04:00 36.7 75 14 110/58 (75) 93 Room Air 05/17/17 02:00 80 13 143/93 (110) 95 Nasal Cannula 2.0 05/17/17 00:01 36.7 71 17 107/81 (90) 94 Nasal Cannula 2.0 05/16/17 23:59 Nasal Cannula 2.0 05/16/17 22:00 79 23 143/84 (103) 93 Nasal Cannula 2.0 05/16/17 20:00 36.6 79 20 144/88 (106) 95 Nasal Cannula 2.0 05/16/17 20:00 Nasal Cannula 2.0 05/16/17 18:00 91 25 123/65 (84) 93 Nasal Cannula 2.0 05/16/17 16:02 Nasal Cannula 2.0 05/16/17 16:00 81 20 145/88 (107) 91 Nasal Cannula 2.0 05/16/17 14:00 76 26 155/78 (103) 94 Nasal Cannula 2.0 Physical Exam General Appearance: no apparent distress Eyes: EOMI ENT: hearing grossly normal Neck: trachea midline Respiratory/Chest: no respiratory distress, no accessory muscle use Extremities: normal range of motion Neurologic/Psychiatric: perishable fruit inspector II-XII nml as tested, alert, normal mood/affect Skin: normal color, warm/dry Laboratory Results Last 24 Hours Test 05/16/17 13:56 05/16/17 16:31 05/16/17 20:59 05/16/17 22:10 Troponin I 62.900 ng/ml 29.600 ng/ml Bedside Glucose 215 mg/dl 170 mg/dl Test 05/17/17 00:09 05/17/17 04:01 05/17/17 05:00 05/17/17 11:11 Bedside Glucose 171 mg/dl 167 mg/dl 210 mg/dl White Blood Count 7.66 K/uL Red Blood Count 4.44 M/uL Hemoglobin 13.1 g/dL Hematocrit 38.5 % Mean Corpuscular Volume 86.7 fL Mean Corpuscular Hemoglobin 29.5 pg Mean Corpuscular Hemoglobin Concent 34.0 g/dl Platelet Count 178 K/uL Mean Platelet Volume 10.6 fL Neutrophils (%) (Auto) 64.7 % Lymphocytes (%) (Auto) 21.0 % Monocytes (%) (Auto) 10.7 % Eosinophils (%) (Auto) 2.9 % Basophils (%) (Auto) 0.3 % Neutrophils # (Auto) 4.96 K/uL Lymphocytes # (Auto) 1.61 K/uL Monocytes # (Auto) 0.82 K/uL Eosinophils # (Auto) 0.22 K/uL Basophils # (Auto) 0.02 K/uL RDW Standard Deviation 41.8 fL RDW Coefficient of Variation 13.1 % Immature Granulocyte % (Auto) 0.4 % Immature Granulocyte # (Auto) 0.03 K/uL Sodium Level 138 mmol/L Potassium Level 4.4 mmol/L Chloride Level 110 mmol/L Carbon Dioxide Level 22 mmol/L Anion Gap 6.0 mmol/L Blood Urea Nitrogen 15 mg/dl Creatinine 0.91 mg/dl Est Creatinine Clear Calc Drug Dose 84.8 ml/min Estimated GFR () 92.6 Estimated GFR (Non- 79.9 BUN/Creatinine Ratio 16.7 Random Glucose 177 mg/dl Estimated Average Glucose 180 mg/dl Hemoglobin A1c 7.9 % Calcium Level 8.6 mg/dl Phosphorus Level 2.6 mg/dl Magnesium Level 2.0 mg/dl Triglycerides Level 146 mg/dl Cholesterol Level 120 mg/dl HDL Cholesterol 33 mg/dl LDL Cholesterol, Calculated 58 mg/dl VLDL Cholesterol, Calculated 29 mg/dl Cholesterol/HDL Ratio 3.6 Assessment and Plan STEMI - now stable s/p stenting. ongoing med management, for return to bundle tier and labeler friday, medically acceptable for telemetry status if OK w cardiology HTN - improved after titration of metoprolol and lisinopril hyperlipid - on atorva 80mg, lipid panel already low so likely in a few months would reduce to 40mg atorva. DM2 - ongoing glycemic consult. A1c 7.9, ~40 mins face to face on lifestyle discussions - geared towards secondary prevention of MS but predominantly discussing DM lifestyle. also seems to have some problems occuring that are typically inherent to 70/30 insulin (waking up low, feeling hypoglycemic even when sugar 100) -- discussed basal bolus. discussed given MS and all the other new meds, change in insulins would likely be better done in near but not immediate future - will continue to follow DVT proph - heparin SQ Transaminitis - follow periodically
--- NOTE | 2017-05-17 13:59 | Cardiology Follow-Up ---
Subjective Date of Service: May 17, 2017. Pt evaluation today including: conversation w/ patient, conversation w/ family , physical exam, chart review, lab review, review of studies, review of inpatient medication list, conversation w/ attending History of Present Illness Mr. Jenkins feels well today. His breathing has improved. He denies chest pain, shortness of breath, syncope, near-syncope, palpitations, or edema. He denies bleeding. His is present at the bedside. They did inquire about a planned PCI with Dr. Cruz on Friday, as per Dr. Cruz recommendations. Review of systems: As above. Social History Smoking Status: Never Smoker History of Alcohol Use: Yes (occasional) Review of Systems Respiratory: No cough, No sputum Cardiac: No chest pain, No orthopnea Medications Current Inpatient Medications Medications (Trade) Dose Ordered Sig/Young Route Start Time Stop Time Status Last Admin Dose Admin Sodium Chloride 1,000 ml @ 75 mls/hr [id number] IV 05/16/17 06:15 06/15/17 06:14 05/17/17 05:48 75 MLS/HR Aspirin (Ecotrin Tab) 81 mg QAM PO 05/16/17 09:00 06/15/17 08:59 05/17/17 08:26 81 MG Atorvastatin Calcium (Lipitor Tab) 80 mg QAM PO 05/16/17 09:00 06/15/17 08:59 05/17/17 08:26 80 MG Acetaminophen (Tylenol Tab) 650 mg Q4H PRN PO 05/16/17 05:45 06/15/17 05:44 Ticagrelor (Brilinta Cap) 90 mg BID PO 05/16/17 21:00 06/15/17 20:59 05/17/17 08:27 90 MG Ondansetron HCl (Zofran Inj) 4 mg Q6H PRN IV 05/16/17 06:15 06/15/17 06:14 Insulin Aspart (novoLOG ASPART) SLIDING SCALE If C... ACHS SC 05/16/17 06:45 06/15/17 06:44 05/17/17 12:40 12 UNITS Glucose (Glucose 40% Gel) UD PRN PO 05/16/17 06:15 06/15/17 06:14 Glucose (Glucose Chew Tab) 1 tabs UD PRN PO 05/16/17 06:15 06/15/17 06:14 Dextrose (Dextrose 50% 50ML Syringe) 50 ml UD PRN IV 05/16/17 06:15 06/15/17 06:14 Glucagon (Glucagon Inj) 1 mg UD PRN SQ 05/16/17 06:15 06/15/17 06:14 Miscellaneous Information (Consult Glycemic Management Pharmacy) 1 ea UD PRN N/A 05/16/17 08:45 06/15/17 08:44 Insulin Glargine (Lantus Solostar Pen) BID SC 05/16/17 21:00 06/15/17 20:59 05/17/17 08:31 20 UNITS Miscellaneous (Iv Fluids Completed) 1 ea PRN PRN N/A 05/16/17 14:00 05/16/18 13:59 Heparin Sodium (Porcine) (Heparin Sq 5000 Unit/0.5ml) 5,000 unit Q12 SQ 05/16/17 21:00 06/15/17 20:59 05/17/17 08:31 5,000 UNIT Metoprolol Tartrate (Lopressor Tab) 25 mg Q12 PO 05/16/17 21:00 06/15/17 08:59 05/17/17 08:26 25 MG Lisinopril (Zestril Tab) 20 mg QAM PO 05/17/17 09:00 06/16/17 08:59 05/17/17 08:26 20 MG Tramadol HCl (Ultram Tab) 25 mg Q4H PRN PO 05/16/17 16:15 06/15/17 16:14 Pantoprazole Sodium (Protonix Tab) 40 mg QAM PO 05/17/17 09:00 06/16/17 08:59 05/17/17 08:27 40 MG Objective Vital Signs Past 12 Hours Date Time Temp Pulse Resp B/P (MAP) Pulse Ox O2 Delivery O2 Flow Rate FiO2 05/17/17 12:45 36.7 91 20 150/80 (103) 94 Room Air 05/17/17 12:00 Room Air 05/17/17 10:40 82 18 129/70 (89) 92 Room Air 05/17/17 08:34 36.6 94 20 139/92 (108) 93 Room Air 05/17/17 08:00 Room Air 05/17/17 06:00 78 20 94 Room Air 05/17/17 04:00 Room Air 05/17/17 04:00 36.7 75 14 110/58 (75) 93 Room Air 05/17/17 02:00 80 13 143/93 (110) 95 Nasal Cannula 2.0 Last Recorded Weight-Kilograms: 123.100 Physical Exam Gen.: No acute distress. Alert and oriented. Neck: Thick neck. Cardiac: No ventricular heave. Regular with ectopy. Normal S1-S2. No murmurs, rubs, or gallops. Pulmonary: Clear to auscultation bilaterally without wheezes, rales, or rhonchi. Abdomen: Soft, nontender, nondistended, with normoactive bowel sounds. No bruits noted. Extremities: 2+ radial pulses bilaterally. Right radial cath site is clean, dry , and intact without erythema or discharge. 2+ posterior tibialis pulses bilaterally. No edema or cyanosis. Psychiatric: Affect appears appropriate. Data Laboratory Results: Last 24 Hours Test 05/16/17 13:56 05/16/17 16:31 05/16/17 20:59 05/16/17 22:10 Troponin I 62.900 ng/ml 29.600 ng/ml Bedside Glucose 215 mg/dl 170 mg/dl Test 05/17/17 00:09 05/17/17 04:01 05/17/17 05:00 05/17/17 11:11 Bedside Glucose 171 mg/dl 167 mg/dl 210 mg/dl White Blood Count 7.66 K/uL Red Blood Count 4.44 M/uL Hemoglobin 13.1 g/dL Hematocrit 38.5 % Mean Corpuscular Volume 86.7 fL Mean Corpuscular Hemoglobin 29.5 pg Mean Corpuscular Hemoglobin Concent 34.0 g/dl Platelet Count 178 K/uL Mean Platelet Volume 10.6 fL Neutrophils (%) (Auto) 64.7 % Lymphocytes (%) (Auto) 21.0 % Monocytes (%) (Auto) 10.7 % Eosinophils (%) (Auto) 2.9 % Basophils (%) (Auto) 0.3 % Neutrophils # (Auto) 4.96 K/uL Lymphocytes # (Auto) 1.61 K/uL Monocytes # (Auto) 0.82 K/uL Eosinophils # (Auto) 0.22 K/uL Basophils # (Auto) 0.02 K/uL RDW Standard Deviation 41.8 fL RDW Coefficient of Variation 13.1 % Immature Granulocyte % (Auto) 0.4 % Immature Granulocyte # (Auto) 0.03 K/uL Sodium Level 138 mmol/L Potassium Level 4.4 mmol/L Chloride Level 110 mmol/L Carbon Dioxide Level 22 mmol/L Anion Gap 6.0 mmol/L Blood Urea Nitrogen 15 mg/dl Creatinine 0.91 mg/dl Est Creatinine Clear Calc Drug Dose 84.8 ml/min Estimated GFR () 92.6 Estimated GFR (Non- 79.9 BUN/Creatinine Ratio 16.7 Random Glucose 177 mg/dl Estimated Average Glucose 180 mg/dl Hemoglobin A1c 7.9 % Calcium Level 8.6 mg/dl Phosphorus Level 2.6 mg/dl Magnesium Level 2.0 mg/dl Triglycerides Level 146 mg/dl Cholesterol Level 120 mg/dl HDL Cholesterol 33 mg/dl LDL Cholesterol, Calculated 58 mg/dl VLDL Cholesterol, Calculated 29 mg/dl Cholesterol/HDL Ratio 3.6 ECG reviewed. ECG 05/16/2017: Sinus rhythm with PVCs. Septal infarct. Inferior infarct. Telemetry reviewed: No arrhythmia. PVCs. Sinus rhythm. Assessment and Plan ASSESSMENT/PLAN: 1. LAD STEMI: No angina. Moderately reduced LV systolic function with LAD wall motion abnormalities reported. Continue dual anti-platelet therapy. Continue beta-terell and JOAQUIN-inhibitor therapy. Continue high-intensity statin therapy. Cardiac rehabilitation recommended upon discharge. 2. CAD: He has residual CAD. Dr. Cruz plans for elective PCI of circumflex in 2 days. Continue anti-platelet therapy as above. Continue beta-terell, JOAQUIN -inhibitor, and high-intensity statin therapy. 3. Ischemic cardiomyopathy: Moderately reduced LV systolic function. Lisinopril was increased today to 20 mg daily. Metoprolol will be increased to 50 mg twice daily. Will change metoprolol tartrate to metoprolol succinate given reduced LV systolic function. He appears euvolemic. 4. Hypertension: Blood pressure has been normotensive and mildly elevated since yesterday morning. Titrate beta-terell due to ischemic cardiomyopathy and CAD. 5. Disposition: Can be transferred to PCU from a cardiac standpoint. Tentative plan for elective PCI of circumflex on Friday with Dr. Cruz. Patient care has been discussed with Dr. Mirza, of the analytical chemistry teacher team.
--- NOTE | 2017-05-17 15:14 | Critical Care Progress Note ---
Critical Care Progress Note Date of Service May 17, 2017. ICU Day ICU Day Number: 2 Attending Subjective There were no acute events overnight. The patient's care was discussed in detail with his nurse, Joan. He denies chest pain but has some shortness of breath with getting out of bed to chair. He is not eating particularly well but he does not like the food. Objective Maximum temperature 36.7 heart rate 60s to 90s, respiratory rate 18-20, but pressure 107-150 over 50s to 90s, oxygen saturation 94% on room air. 24-hour fluid balance +425 mL. Exam: Gen.: He is awake alert sitting in a chair and talking to his friend. Lungs: Rales in the left base no rhonchi or wheezes throughout. Heart: Irregular, no murmurs noted Extremities: Right wrist is without hematoma. No edema of the lower extremities. Capillary refill is adequate. 05/17/17 05:00 Red Blood Count 4.44, Mean Corpuscular Volume 86.7, Mean Corpuscular Hemoglobin 29.5, Mean Corpuscular Hemoglobin Concent 34.0, Mean Platelet Volume 10.6, Neutrophils (%) (Auto) 64.7, Lymphocytes (%) (Auto) 21.0, Monocytes (%) (Auto) 10.7, Eosinophils (%) (Auto) 2.9, Basophils (%) (Auto) 0.3, Neutrophils # (Auto ) 4.96, Lymphocytes # (Auto) 1.61, Monocytes # (Auto) 0.82, Eosinophils # (Auto ) 0.22, Basophils # (Auto) 0.02 05/17/17 05:00 Test 05/16/17 22:10 05/17/17 05:00 05/17/17 11:11 Troponin I 29.600 ng/ml (0-0.045) White Blood Count 7.66 K/uL (4.8-10.8) Red Blood Count 4.44 M/uL (4.7-6.1) Hemoglobin 13.1 g/dL (14.0-18.0) Hematocrit 38.5 % (42-52) Mean Corpuscular Volume 86.7 fL (80-100) Mean Corpuscular Hemoglobin 29.5 pg (25-34) Mean Corpuscular Hemoglobin Concent 34.0 g/dl (32-36) Platelet Count 178 K/uL (130-400) Mean Platelet Volume 10.6 fL (7.4-10.4) Neutrophils (%) (Auto) 64.7 % Lymphocytes (%) (Auto) 21.0 % Monocytes (%) (Auto) 10.7 % Eosinophils (%) (Auto) 2.9 % Basophils (%) (Auto) 0.3 % Neutrophils # (Auto) 4.96 K/uL (1.4-6.5) Lymphocytes # (Auto) 1.61 K/uL (1.2-3.4) Monocytes # (Auto) 0.82 K/uL (0.11-0.59) Eosinophils # (Auto) 0.22 K/uL (0-0.5) Basophils # (Auto) 0.02 K/uL (0-0.2) RDW Standard Deviation 41.8 fL (36.4-46.3) RDW Coefficient of Variation 13.1 % (11.5-14.5) Immature Granulocyte % (Auto) 0.4 % Immature Granulocyte # (Auto) 0.03 K/uL (0.00-0.02) Anion Gap 6.0 mmol/L (3-11) Est Creatinine Clear Calc Drug Dose 84.8 ml/min Estimated GFR () 92.6 Estimated GFR (Non- 79.9 BUN/Creatinine Ratio 16.7 (10-20) Estimated Average Glucose 180 mg/dl Hemoglobin A1c 7.9 % (4.5-5.6) Calcium Level 8.6 mg/dl (8.5-10.1) Phosphorus Level 2.6 mg/dl (2.5-4.9) Magnesium Level 2.0 mg/dl (1.8-2.4) Triglycerides Level 146 mg/dl (0-150) Cholesterol Level 120 mg/dl (0-200) HDL Cholesterol 33 mg/dl LDL Cholesterol, Calculated 58 mg/dl VLDL Cholesterol, Calculated 29 mg/dl Cholesterol/HDL Ratio 3.6 Bedside Glucose 210 mg/dl (70-99) Current Inpatient Medications Medications (Trade) Dose Ordered Sig/Young Route Start Time Stop Time Status Last Admin Dose Admin Aspirin (Ecotrin Tab) 81 mg QAM PO 05/16/17 09:00 06/15/17 08:59 05/17/17 08:26 81 MG Atorvastatin Calcium (Lipitor Tab) 80 mg QAM PO 05/16/17 09:00 06/15/17 08:59 05/17/17 08:26 80 MG Acetaminophen (Tylenol Tab) 650 mg Q4H PRN PO 05/16/17 05:45 06/15/17 05:44 Ticagrelor (Brilinta Cap) 90 mg BID PO 05/16/17 21:00 06/15/17 20:59 05/17/17 08:27 90 MG Ondansetron HCl (Zofran Inj) 4 mg Q6H PRN IV 05/16/17 06:15 06/15/17 06:14 Insulin Aspart (novoLOG ASPART) SLIDING SCALE If C... ACHS SC 05/16/17 06:45 06/15/17 06:44 05/17/17 12:40 12 UNITS Glucose (Glucose 40% Gel) UD PRN PO 05/16/17 06:15 06/15/17 06:14 Glucose (Glucose Chew Tab) 1 tabs UD PRN PO 05/16/17 06:15 06/15/17 06:14 Dextrose (Dextrose 50% 50ML Syringe) 50 ml UD PRN IV 05/16/17 06:15 06/15/17 06:14 Glucagon (Glucagon Inj) 1 mg UD PRN SQ 05/16/17 06:15 06/15/17 06:14 Miscellaneous Information (Consult Glycemic Management Pharmacy) 1 ea UD PRN N/A 05/16/17 08:45 06/15/17 08:44 Insulin Glargine (Lantus Solostar Pen) BID SC 05/16/17 21:00 06/15/17 20:59 05/17/17 08:31 20 UNITS Miscellaneous (Iv Fluids Completed) 1 ea PRN PRN N/A 05/16/17 14:00 05/16/18 13:59 Heparin Sodium (Porcine) (Heparin Sq 5000 Unit/0.5ml) 5,000 unit Q12 SQ 05/16/17 21:00 06/15/17 20:59 05/17/17 08:31 5,000 UNIT Lisinopril (Zestril Tab) 20 mg QAM PO 05/17/17 09:00 06/16/17 08:59 05/17/17 08:26 20 MG Tramadol HCl (Ultram Tab) 25 mg Q4H PRN PO 05/16/17 16:15 06/15/17 16:14 Pantoprazole Sodium (Protonix Tab) 40 mg QAM PO 05/17/17 09:00 06/16/17 08:59 05/17/17 08:27 40 MG Metoprolol Succinate (Toprol Xl Tab) 50 mg BID PO 05/17/17 21:00 06/16/17 20:59 UNV . Assessment & Plan 1. Status post acute anterior ST segment elevation myocardial infarction 2. Multivessel coronary artery disease status post LAD stenting 2 yesterday, doing well 3. Left ventricular dysfunction, ejection fraction 35-40%, grade 1 diastolic dysfunction 4. Diabetes mellitus with hyperglycemia, improved. 5. Hypertension, improved 6. Chronic back pain 7. History of subdural hematoma and craniotomy. Plan: 1. Continue aspirin, statin, beta terell which has been titrated upward, lisinopril, also titrated upward. Continue Ticagrelor. 2. Anticipate elective cardiac catheterization Friday for intervention on the circumflex. 3. IV fluids have been discontinued 4. Discontinue Protonix, he does not need GI prophylaxis. Continue subcutaneous heparin for DVT prophylaxis. 5. Continue glycemic management with the assistance of the pharmacy service. 6. He may benefit from cardiac rehabilitation. 7. Transfer to PCU. Consults & Procedures Consultants: Dr. Cruz Procedures: Cardiac Catheterization with LAD stent x2 05/16/17 Data Medications: Current Inpatient Medications Medications (Trade) Dose Ordered Sig/Young Route Start Time Stop Time Status Last Admin Dose Admin Aspirin (Ecotrin Tab) 81 mg QAM PO 05/16/17 09:00 06/15/17 08:59 05/17/17 08:26 81 MG Atorvastatin Calcium (Lipitor Tab) 80 mg QAM PO 05/16/17 09:00 06/15/17 08:59 05/17/17 08:26 80 MG Acetaminophen (Tylenol Tab) 650 mg Q4H PRN PO 05/16/17 05:45 06/15/17 05:44 Ticagrelor (Brilinta Cap) 90 mg BID PO 05/16/17 21:00 06/15/17 20:59 05/17/17 08:27 90 MG Ondansetron HCl (Zofran Inj) 4 mg Q6H PRN IV 05/16/17 06:15 06/15/17 06:14 Insulin Aspart (novoLOG ASPART) SLIDING SCALE If C... ACHS SC 05/16/17 06:45 06/15/17 06:44 05/17/17 12:40 12 UNITS Glucose (Glucose 40% Gel) UD PRN PO 05/16/17 06:15 06/15/17 06:14 Glucose (Glucose Chew Tab) 1 tabs UD PRN PO 05/16/17 06:15 06/15/17 06:14 Dextrose (Dextrose 50% 50ML Syringe) 50 ml UD PRN IV 05/16/17 06:15 06/15/17 06:14 Glucagon (Glucagon Inj) 1 mg UD PRN SQ 05/16/17 06:15 06/15/17 06:14 Miscellaneous Information (Consult Glycemic Management Pharmacy) 1 ea UD PRN N/A 05/16/17 08:45 06/15/17 08:44 Insulin Glargine (Lantus Solostar Pen) BID SC 05/16/17 21:00 06/15/17 20:59 05/17/17 08:31 20 UNITS Miscellaneous (Iv Fluids Completed) 1 ea PRN PRN N/A 05/16/17 14:00 05/16/18 13:59 Heparin Sodium (Porcine) (Heparin Sq 5000 Unit/0.5ml) 5,000 unit Q12 SQ 05/16/17 21:00 06/15/17 20:59 05/17/17 08:31 5,000 UNIT Lisinopril (Zestril Tab) 20 mg QAM PO 05/17/17 09:00 06/16/17 08:59 05/17/17 08:26 20 MG Tramadol HCl (Ultram Tab) 25 mg Q4H PRN PO 05/16/17 16:15 06/15/17 16:14 Pantoprazole Sodium (Protonix Tab) 40 mg QAM PO 05/17/17 09:00 06/16/17 08:59 05/17/17 08:27 40 MG Metoprolol Succinate (Toprol Xl Tab) 50 mg BID PO 05/17/17 21:00 06/16/17 20:59 UNV I & O: 24-Hour Column 05/18/17 08:00 Intake Total 1276 ml Output Total 800 ml Balance 476 ml Vital Signs: Date Time Temp Pulse Resp B/P (MAP) Pulse Ox O2 Delivery O2 Flow Rate FiO2 05/17/17 12:45 36.7 91 20 150/80 (103) 94 Room Air 05/17/17 12:00 Room Air 05/17/17 10:40 82 18 129/70 (89) 92 Room Air 05/17/17 08:34 36.6 94 20 139/92 (108) 93 Room Air 05/17/17 08:00 Room Air 05/17/17 06:00 78 20 94 Room Air 05/17/17 04:00 Room Air 05/17/17 04:00 36.7 75 14 110/58 (75) 93 Room Air 05/17/17 02:00 80 13 143/93 (110) 95 Nasal Cannula 2.0 05/17/17 00:01 36.7 71 17 107/81 (90) 94 Nasal Cannula 2.0 05/16/17 23:59 Nasal Cannula 2.0 05/16/17 22:00 79 23 143/84 (103) 93 Nasal Cannula 2.0 05/16/17 20:00 36.6 79 20 144/88 (106) 95 Nasal Cannula 2.0 05/16/17 20:00 Nasal Cannula 2.0 05/16/17 18:00 91 25 123/65 (84) 93 Nasal Cannula 2.0 05/16/17 16:02 Nasal Cannula 2.0 05/16/17 16:00 81 20 145/88 (107) 91 Nasal Cannula 2.0 Laboratory Results: Last 24 Hours Test 05/16/17 16:31 05/16/17 20:59 05/16/17 22:10 05/17/17 00:09 Bedside Glucose 215 mg/dl 170 mg/dl 171 mg/dl Troponin I 29.600 ng/ml Test 05/17/17 04:01 05/17/17 05:00 05/17/17 11:11 Bedside Glucose 167 mg/dl 210 mg/dl White Blood Count 7.66 K/uL Red Blood Count 4.44 M/uL Hemoglobin 13.1 g/dL Hematocrit 38.5 % Mean Corpuscular Volume 86.7 fL Mean Corpuscular Hemoglobin 29.5 pg Mean Corpuscular Hemoglobin Concent 34.0 g/dl Platelet Count 178 K/uL Mean Platelet Volume 10.6 fL Neutrophils (%) (Auto) 64.7 % Lymphocytes (%) (Auto) 21.0 % Monocytes (%) (Auto) 10.7 % Eosinophils (%) (Auto) 2.9 % Basophils (%) (Auto) 0.3 % Neutrophils # (Auto) 4.96 K/uL Lymphocytes # (Auto) 1.61 K/uL Monocytes # (Auto) 0.82 K/uL Eosinophils # (Auto) 0.22 K/uL Basophils # (Auto) 0.02 K/uL RDW Standard Deviation 41.8 fL RDW Coefficient of Variation 13.1 % Immature Granulocyte % (Auto) 0.4 % Immature Granulocyte # (Auto) 0.03 K/uL Sodium Level 138 mmol/L Potassium Level 4.4 mmol/L Chloride Level 110 mmol/L Carbon Dioxide Level 22 mmol/L Anion Gap 6.0 mmol/L Blood Urea Nitrogen 15 mg/dl Creatinine 0.91 mg/dl Est Creatinine Clear Calc Drug Dose 84.8 ml/min Estimated GFR () 92.6 Estimated GFR (Non- 79.9 BUN/Creatinine Ratio 16.7 Random Glucose 177 mg/dl Estimated Average Glucose 180 mg/dl Hemoglobin A1c 7.9 % Calcium Level 8.6 mg/dl Phosphorus Level 2.6 mg/dl Magnesium Level 2.0 mg/dl Triglycerides Level 146 mg/dl Cholesterol Level 120 mg/dl HDL Cholesterol 33 mg/dl LDL Cholesterol, Calculated 58 mg/dl VLDL Cholesterol, Calculated 29 mg/dl Cholesterol/HDL Ratio 3.6
[2017-05-17] MEDS: METOPROLOL SUCC 50MG EXT REL TAB PO SCH (21:21)
[2017-05-17] MEDS ORDERED: COUGH DROP (SUGAR FREE) LOZ 24 LOZ/1 BOX ONE (21:33)
[2017-05-17] MEDS ORDERED: NURSING DECISION MEDICATION ORDER SCH (22:00)
[2017-05-17] MEDS ORDERED: COUGH DROP (SUGAR FREE) LOZ 24 LOZ/1 BOX PO PRN (22:30)
[2017-05-18] VITALS (7 sets, daily range): BP systolic 109–137; BP diastolic 62–88; PULSE 59–83; TEMP 36.5–36.9; O2SAT 91–95
[2017-05-18 07:44] LABS: BUN/CREATININE RATIO 14.3 (10-20); CALCIUM 8.9 mg/dl (8.5-10.1); POTASSIUM 4.5 mmol/L (3.5-5.1)
[2017-05-18] MEDS: METOPROLOL SUCC 50MG EXT REL TAB PO SCH ×2 (07:59→20:56)
[2017-05-18] MEDS: ATORVASTATIN 40 MG TAB PO SCH (07:59)
[2017-05-18] MEDS: ASPIRIN 81 MG ECTAB PO SCH (08:00)
[2017-05-18] MEDS: TICAGRELOR 90 MG TAB PO SCH ×2 (08:00→20:56)
[2017-05-18] MEDS: LISINOPRIL 20 MG TAB PO SCH (08:01)
[2017-05-18] MEDS: INSULIN GLARGINE SOLOSTAR 100 UNITS/ML 3 ML PEN SC SCH ×2 (08:04→20:57)
[2017-05-18] MEDS: INSULIN ASPART 100 UNITS/ML 3 ML PEN SC SCH ×4 (08:04→20:42)
[2017-05-18] MEDS: HEPARIN SOD 5000 UNIT/0.5 ML CARP SQ SCH ×2 (08:05→20:58)
[2017-05-18 08:11] LABS: BASO % 0.3 %; BASO ABS # 0.02 K/uL (0-0.2); COMPLETE YES; EOS % 3.5 %; HEMATOCRIT 37.9 % (42-52); IG% 0.3 %; LYMPH % 25.8 %; LYMPH ABS # 1.68 K/uL (1.2-3.4); MEAN CELL VOLUME 87.5 fL (80-100); MEAN CORPUSCULAR HEMOGLOBIN 30.3 pg (25-34); MEAN CORPUSCULAR HGB CONC 34.6 g/dl (32-36); MEAN PLATELET VOLUME 11.1 fL (7.4-10.4); MONO % 9.2 %; NEUT % 60.9 %; PLATELET COUNT 164 K/uL (130-400); RED BLOOD COUNT 4.33 M/uL (4.7-6.1); WHITE BLOOD COUNT 6.52 K/uL (4.8-10.8)
--- NOTE | 2017-05-18 11:43 | Cardiology Follow-Up ---
Subjective Date of Service: May 18, 2017. Pt evaluation today including: conversation w/ patient, conversation w/ family , physical exam, chart review, lab review, review of studies, review of inpatient medication list, conversation w/ attending History of Present Illness He states that he feels a bit more short of breath today, even while laying down. He has a cough which is described as dry. He denies angina, syncope, near -syncope, palpitations, or bleeding. Review of systems: As above. His is present at the bedside. Social History Smoking Status: Never Smoker History of Alcohol Use: Yes (occasional) Medications Current Inpatient Medications Medications (Trade) Dose Ordered Sig/Young Route Start Time Stop Time Status Last Admin Dose Admin Aspirin (Ecotrin Tab) 81 mg QAM PO 05/16/17 09:00 06/15/17 08:59 05/18/17 08:00 81 MG Atorvastatin Calcium (Lipitor Tab) 80 mg QAM PO 05/16/17 09:00 06/15/17 08:59 05/18/17 07:59 80 MG Acetaminophen (Tylenol Tab) 650 mg Q4H PRN PO 05/16/17 05:45 06/15/17 05:44 Ticagrelor (Brilinta Cap) 90 mg BID PO 05/16/17 21:00 06/15/17 20:59 05/18/17 08:00 90 MG Ondansetron HCl (Zofran Inj) 4 mg Q6H PRN IV 05/16/17 06:15 06/15/17 06:14 Insulin Aspart (novoLOG ASPART) SLIDING SCALE If C... ACHS SC 05/16/17 06:45 06/15/17 06:44 05/18/17 08:04 11 UNITS Glucose (Glucose 40% Gel) UD PRN PO 05/16/17 06:15 06/15/17 06:14 Glucose (Glucose Chew Tab) 1 tabs UD PRN PO 05/16/17 06:15 06/15/17 06:14 Dextrose (Dextrose 50% 50ML Syringe) 50 ml UD PRN IV 05/16/17 06:15 06/15/17 06:14 Glucagon (Glucagon Inj) 1 mg UD PRN SQ 05/16/17 06:15 06/15/17 06:14 Miscellaneous Information (Consult Glycemic Management Pharmacy) 1 ea UD PRN N/A 05/16/17 08:45 06/15/17 08:44 Insulin Glargine (Lantus Solostar Pen) BID SC 05/16/17 21:00 06/15/17 20:59 05/18/17 08:04 20 UNITS Miscellaneous (Iv Fluids Completed) 1 ea PRN PRN N/A 05/16/17 14:00 05/16/18 13:59 Heparin Sodium (Porcine) (Heparin Sq 5000 Unit/0.5ml) 5,000 unit Q12 SQ 05/16/17 21:00 06/15/17 20:59 05/18/17 08:05 5,000 UNIT Lisinopril (Zestril Tab) 20 mg QAM PO 05/17/17 09:00 06/16/17 08:59 05/18/17 08:01 20 MG Tramadol HCl (Ultram Tab) 25 mg Q4H PRN PO 05/16/17 16:15 06/15/17 16:14 Metoprolol Succinate (Toprol Xl Tab) 50 mg BID PO 05/17/17 21:00 06/16/17 20:59 05/18/17 07:59 50 MG Menthol (Nice Zo) 1 zo PRN PRN PO 05/17/17 22:30 06/16/17 22:29 Objective Vital Signs Past 12 Hours Date Time Temp Pulse Resp B/P (MAP) Pulse Ox O2 Delivery O2 Flow Rate FiO2 05/18/17 11:03 36.6 75 18 137/83 (101) 95 Room Air 05/18/17 08:00 Room Air 05/18/17 06:59 36.6 82 18 125/77 (93) 95 Room Air 05/18/17 04:00 Room Air 05/18/17 03:56 36.5 71 17 136/88 (104) 93 Room Air 05/17/17 23:59 Room Air Last Recorded Weight-Kilograms: 121.000 Physical Exam Gen.: No acute distress. Alert and oriented. Neck: Thick neck, but mild JVD is appreciated today. Cardiac: No ventricular heave. Regular. Normal S1-S2. No murmurs, rubs, or gallops. Pulmonary: Clear to auscultation bilaterally without wheezes, rales, or rhonchi. Abdomen: Soft, nontender, nondistended, with normoactive bowel sounds. No bruits noted. Extremities: Right radial cath site is clean, dry, and intact without erythema or discharge. 2+ right radial pulse. 2+ posterior tibialis pulses bilaterally. No edema or cyanosis. Psychiatric: Affect appears appropriate. Data Laboratory Results: Last 24 Hours Test 05/17/17 15:43 05/17/17 21:00 05/18/17 06:32 05/18/17 06:44 Bedside Glucose 193 mg/dl 139 mg/dl 170 mg/dl White Blood Count 6.52 K/uL Red Blood Count 4.33 M/uL Hemoglobin 13.1 g/dL Hematocrit 37.9 % Mean Corpuscular Volume 87.5 fL Mean Corpuscular Hemoglobin 30.3 pg Mean Corpuscular Hemoglobin Concent 34.6 g/dl Platelet Count 164 K/uL Mean Platelet Volume 11.1 fL Neutrophils (%) (Auto) 60.9 % Lymphocytes (%) (Auto) 25.8 % Monocytes (%) (Auto) 9.2 % Eosinophils (%) (Auto) 3.5 % Basophils (%) (Auto) 0.3 % Neutrophils # (Auto) 3.97 K/uL Lymphocytes # (Auto) 1.68 K/uL Monocytes # (Auto) 0.60 K/uL Eosinophils # (Auto) 0.23 K/uL Basophils # (Auto) 0.02 K/uL RDW Standard Deviation 42.3 fL RDW Coefficient of Variation 13.2 % Immature Granulocyte % (Auto) 0.3 % Immature Granulocyte # (Auto) 0.02 K/uL Sodium Level 138 mmol/L Potassium Level 4.5 mmol/L Chloride Level 108 mmol/L Carbon Dioxide Level 23 mmol/L Anion Gap 7.0 mmol/L Blood Urea Nitrogen 14 mg/dl Creatinine 1.00 mg/dl Est Creatinine Clear Calc Drug Dose 77.0 ml/min Estimated GFR () 82.6 Estimated GFR (Non- 71.3 BUN/Creatinine Ratio 14.3 Random Glucose 161 mg/dl Calcium Level 8.9 mg/dl Total Bilirubin 0.7 mg/dl Direct Bilirubin 0.1 mg/dl Aspartate Amino Transf (AST/SGOT) 56 U/L Alanine Aminotransferase (ALT/SGPT) 30 U/L Alkaline Phosphatase 58 U/L Total Protein 7.2 gm/dl Albumin 3.4 gm/dl Test 05/18/17 11:04 Bedside Glucose 230 mg/dl Telemetry reviewed: No arrhythmia. Assessment and Plan ASSESSMENT/PLAN: 1. LAD STEMI: Continues to do well without angina but does have a bit more shortness of breath today. Moderately reduced LV systolic function with LAD wall motion abnormalities reported. Continue dual anti-platelet therapy. Continue beta-terell and JOAQUIN-inhibitor therapy. Continue high-intensity statin therapy. Cardiac rehabilitation recommended upon discharge. 2. CAD: He has residual CAD. Dr. Cruz plans for elective PCI of circumflex tomorrow. Continue anti-platelet therapy as above. Continue beta-terell, JOAQUIN- inhibitor, and high-intensity statin therapy. 3. Ischemic cardiomyopathy: Moderately reduced LV systolic function. Continue current dose of lisinopril and titrate over time. He does have a dry cough. If this persists despite gentle diuresis, could consider changing ARB in the future. Metoprolol will be increased to 50 mg twice daily yesterday. Continue current doses for today and titrate in the future as able. 4. Hypertension: Blood pressure has been normotensive after titrating medications. Continue current doses for today. 5. Cough: He describes a nonproductive cough since being hospitalized. Family is concerned it could be due to lisinopril but when reviewing records, he has been on lisinopril. It could be due to some pulmonary vascular congestion as he does appear to have JVD today. Lasix 20 mg x1 ordered intravenously. Monitor. 6. Disposition: Dr. Cruz will resume his cardiology care tomorrow, tentative plan for PCI. NPO after midnight except for medications. Medicare discuss with Dr. Cruz, primary hospitalist.
[2017-05-18] MEDS ORDERED: FUROSEMIDE INJ 20 MG in SYRINGE 0 ML IV ONE (12:30)
--- NOTE | 2017-05-18 13:32 | Pharmacy Progress Note ---
Glycemic: Assessment & Plan Date of Service May 18, 2017. Assessment & Plan The patient is currently receiving about 65 units of insulin per day. BSGs ranging 139 - 230 mg/dl over the past 24hrs. Blood sugar did rise overnight due to too low of a dose of Lantus given per scale for PM dose, I will adjust this scale to ensure patient usually receives 20 units Lantus. * Basal insulin: Lantus SQ BID: BSG 99mg/dL or lower - 10 units BSG 100mg/dL or greater - 20 units * Correctional Insulin: Novolog Correction per scale ACHS Goal Range: Low 140 mg/dL - High 180 mg/dL Correction Factor: 20 mg/dL/unit * Prandial insulin: Per carb ratio of 1 unit per 6 grams CHO consumed Pharmacy will continue to monitor patient daily and write orders per [facility] inpatient glycemic control protocol. Thanks. * Please note that the plan above was derived based on current level of insulin resistance and hospital stress. These recommendations are appropriate for inpatient admission only. Plan of care upon discharge will need to be reassessed to avoid potential outpatient hypo/hyperglycemia.
--- NOTE | 2017-05-18 16:04 | Progress Note ---
Subjective Date of Service: May 18, 2017. Subjective Pt evaluation today including: conversation w/ patient, conversation w/ family , physical exam, chart review, lab review, conversation w/ portrait consultant, review of inpatient medication list generally feeling better mostly getting bored and a little restless no more chest pain, cardiac symptoms basically resolved does have dry cough notes exercise is limited by chronic back pain - low back, some radiation to L leg, is post op. reticent to start much as far as meds for this - "they wanted to put me on narcotics for it" does have a recumbant bike in the house - doesn't use. 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 - now not sure if he'll do it at all Problem List Medical Problems: (1) Hyperglycemia Status: Acute (2) STEMI (ST elevation myocardial infarction) Status: Acute Review of Systems all other ROS otherwise negative except for as above Objective Vital Signs Date Time Temp Pulse Resp B/P (MAP) Pulse Ox O2 Delivery O2 Flow Rate FiO2 05/18/17 12:00 Room Air 05/18/17 11:03 36.6 75 18 137/83 (101) 95 Room Air 05/18/17 08:00 Room Air 05/18/17 06:59 36.6 82 18 125/77 (93) 95 Room Air 05/18/17 04:00 Room Air 05/18/17 03:56 36.5 71 17 136/88 (104) 93 Room Air 05/17/17 23:59 Room Air 05/17/17 23:34 36.4 60 20 143/72 (95) 92 Room Air 05/17/17 20:03 36.6 63 20 153/67 (95) 94 Room Air 05/17/17 20:00 Room Air 05/17/17 16:30 36.3 98 18 141/82 (101) 96 Room Air 05/17/17 16:03 36.7 88 20 95 05/17/17 16:00 Room Air Physical Exam General Appearance: no apparent distress Eyes: EOMI ENT: hearing grossly normal Neck: trachea midline Respiratory/Chest: no respiratory distress, no accessory muscle use Extremities: normal range of motion Neurologic/Psychiatric: political worker II-XII nml as tested, alert, normal mood/affect Skin: normal color, warm/dry Laboratory Results Last 24 Hours Test 7/1/17 21:00 05/18/17 06:32 05/18/17 06:44 05/18/17 11:04 Bedside Glucose 139 mg/dl 170 mg/dl 230 mg/dl White Blood Count 6.52 K/uL Red Blood Count 4.33 M/uL Hemoglobin 13.1 g/dL Hematocrit 37.9 % Mean Corpuscular Volume 87.5 fL Mean Corpuscular Hemoglobin 30.3 pg Mean Corpuscular Hemoglobin Concent 34.6 g/dl Platelet Count 164 K/uL Mean Platelet Volume 11.1 fL Neutrophils (%) (Auto) 60.9 % Lymphocytes (%) (Auto) 25.8 % Monocytes (%) (Auto) 9.2 % Eosinophils (%) (Auto) 3.5 % Basophils (%) (Auto) 0.3 % Neutrophils # (Auto) 3.97 K/uL Lymphocytes # (Auto) 1.68 K/uL Monocytes # (Auto) 0.60 K/uL Eosinophils # (Auto) 0.23 K/uL Basophils # (Auto) 0.02 K/uL RDW Standard Deviation 42.3 fL RDW Coefficient of Variation 13.2 % Immature Granulocyte % (Auto) 0.3 % Immature Granulocyte # (Auto) 0.02 K/uL Sodium Level 138 mmol/L Potassium Level 4.5 mmol/L Chloride Level 108 mmol/L Carbon Dioxide Level 23 mmol/L Anion Gap 7.0 mmol/L Blood Urea Nitrogen 14 mg/dl Creatinine 1.00 mg/dl Est Creatinine Clear Calc Drug Dose 77.0 ml/min Estimated GFR () 82.6 Estimated GFR (Non- 71.3 BUN/Creatinine Ratio 14.3 Random Glucose 161 mg/dl Calcium Level 8.9 mg/dl Total Bilirubin 0.7 mg/dl Direct Bilirubin 0.1 mg/dl Aspartate Amino Transf (AST/SGOT) 56 U/L Alanine Aminotransferase (ALT/SGPT) 30 U/L Alkaline Phosphatase 58 U/L Total Protein 7.2 gm/dl Albumin 3.4 gm/dl Assessment and Plan STEMI - now stable s/p stenting. 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 continue current med management. discussed eating habits yesterday, today discussed exercise (once cleared by cardiology) with an ultimate goal of 30mins light cardio every day (highly recommended putting recumbent bike in front of TV and just pedaling gently for one TV show a day) HTN - improved after titration of metoprolol and lisinopril, continue to follow. titrate meds further if needed hyperlipid - on atorva 80mg, lipid panel already low so likely in a few months would reduce to 40mg atorva. tolerating well short term thus far DM2 - ongoing glycemic consult. A1c 7.9, ~40 mins face to face on lifestyle discussions yesterday. continue insulin management. hasn't reached decision on change to basal bolus from 70/30 (see 05/17 discussions) but also did d/w him that given RI and all the new meds with that, change in insulins likely would be better if he waits a little while to adjust cough -no worrisome s/s ---> might be from dry building vs from ACEi. 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 discussed that while root cause of the pain would be the bone and disc disease, for most patients this is about ~40-50% of their pain, muscle/ ligament driven pain is another ~40-50%, and then PNS/PAINT STOCK CLERK facilitation rounds out the remaining 10-20%. discussed that for the muscle/ligament portion of the back pain, increased blood flow from the light cardio as recommended for secondary RI prevention also would likely help loosen muscle/ligaments and reduce pain; in addition, working with soft tissue focused manipulative medicine (locally few DO's, discussed some specifically recommended DCs) to retrain muscles and ligaments -- to f/u after discharge. also loosely discussed meds for helping reduce PNS/PAINT STOCK CLERK facilitation but he is not too keen to start more meds right now, understandably DVT proph - heparin SQ Transaminitis - follow periodically >30mins face to face discussing lifestyle for secondary prevention of RI, as well as strategies to treat/improve low back pain
[2017-05-19] VITALS (10 sets, daily range): BP systolic 125–156; BP diastolic 67–92; PULSE 50–73; TEMP 36.5–36.8; O2SAT 94–97; Ht 175.3 cm; Wt 120.4 kg
[2017-05-19] MEDS ORDERED: NiCARDipine HCL INJ 2.5 MG/ML 10 ML AMP ONE (06:47)
[2017-05-19] MEDS ORDERED: HEPARIN SOD (PORCINE) 1000 UNIT/ML 10 ML VIAL ONE (06:47)
[2017-05-19] MEDS ORDERED: MIDAZOLAM HCL 1 MG/ML 2ML VIAL ONE (06:48)
[2017-05-19] MEDS ORDERED: FENTANYL CITRATE INJ 50 MCG/1 ML 2 ML VIAL ONE (06:48)
[2017-05-19] MEDS ORDERED: NITROGLYCERIN/D5W 100MCG/ML 20ML SYR ONE (06:48)
[2017-05-19] MEDS: INSULIN ASPART 100 UNITS/ML 3 ML PEN SC SCH ×4 (07:00→20:41)
[2017-05-19 07:28] LABS: BUN/CREATININE RATIO 15.5 (10-20); CALCIUM 8.9 mg/dl (8.5-10.1); CREATININE 1.3 mg/dl (0.60-1.40); POTASSIUM 4.5 mmol/L (3.5-5.1)
[2017-05-19] MEDS: ATORVASTATIN 40 MG TAB PO SCH (07:58)
[2017-05-19] MEDS: LISINOPRIL 20 MG TAB PO SCH (07:58)
[2017-05-19 08:19] LABS: BASO % 0.7 %; BASO ABS # 0.05 K/uL (0-0.2); COMPLETE YES; EOS % 4.8 %; HEMATOCRIT 39.4 % (42-52); IG% 0.4 %; LYMPH ABS # 2.07 K/uL (1.2-3.4); MEAN CELL VOLUME 87.9 fL (80-100); MEAN CORPUSCULAR HEMOGLOBIN 30.4 pg (25-34); MEAN CORPUSCULAR HGB CONC 34.5 g/dl (32-36); MEAN PLATELET VOLUME 11.7 fL (7.4-10.4); MONO % 9.7 %; NEUT % 53.4 %; PLATELET COUNT 178 K/uL (130-400); RED BLOOD COUNT 4.48 M/uL (4.7-6.1); WHITE BLOOD COUNT 6.68 K/uL (4.8-10.8)
[2017-05-19] MEDS: TICAGRELOR 90 MG TAB PO SCH ×2 (08:58→20:40)
[2017-05-19] MEDS: ASPIRIN 81 MG ECTAB PO SCH (08:58)
[2017-05-19] MEDS: HEPARIN SOD 5000 UNIT/0.5 ML CARP SQ SCH ×2 (09:00→20:43)
[2017-05-19] MEDS: METOPROLOL SUCC 50MG EXT REL TAB PO SCH ×2 (09:19→20:41)
[2017-05-19] MEDS: INSULIN GLARGINE SOLOSTAR 100 UNITS/ML 3 ML PEN SC SCH ×2 (12:03→20:43)
--- NOTE | 2017-05-19 17:07 | Cardiology Follow-Up ---
Subjective Subjective Date of Service: May 19, 2017. Pt evaluation today including: conversation w/ patient, conversation w/ family , physical exam, chart review, lab review, review of studies, review of inpatient medication list Additional Details: Feeling well. No recurrent chest pain. No other new complaints. Tele -- frequent PACs/PVCs Problem List Medical Problems: (1) Hyperglycemia Status: Acute (2) STEMI (ST elevation myocardial infarction) Status: Acute Review of Systems Constitutional: No fever, No chills ENT: No hearing loss Abdomen: No pain, No nausea Male : No dysuria Psychiatric: No depression symptoms Heme: No abnormal bleeding/bruising Endo: No fatigue Skin: No rash Objective Vital Signs Last Vital Signs Documentation Date Time Temp Pulse Resp B/P (MAP) Pulse Ox O2 Delivery O2 Flow Rate FiO2 05/19/17 16:36 36.8 58 18 146/69 (94) 96 Room Air 05/17/17 02:00 2.0 Physical Exam: General Appearance: no apparent distress ENT: hearing grossly normal Neck: trachea midline Respiratory/Chest: no respiratory distress, no accessory muscle use Cardiovascular: regular rate, rhythm Abdomen: normal bowel sounds, non tender, soft Extremities: normal range of motion Neurologic/Psychiatric: molder labels II-XII nml as tested, alert, normal mood/affect Skin: normal color, warm/dry Assessment and Plan 1. Anterior STEMI/Occluded LAD post PPCI with JOSE MARIA x 2 2. 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 Ischemic cardiomyopathy, EF35-40% 4. Hypertension 5. Frequent PVCs 6. Type 2 DM Plan to proceed with PCI of circumflex today. -- Continue ASA/Ticagrelor -- Continue current toprol XL 100 mg daily -- Continue lisinopril 20mg daily -- continue statin If stable, potential discharge tomorrow Medications: Current Inpatient Medications Medications (Trade) Dose Ordered Sig/Young Route Start Time Stop Time Status Last Admin Dose Admin Aspirin (Ecotrin Tab) 81 mg QAM PO 05/16/17 09:00 06/15/17 08:59 05/19/17 08:58 81 MG Atorvastatin Calcium (Lipitor Tab) 80 mg QAM PO 05/16/17 09:00 06/15/17 08:59 05/19/17 07:58 80 MG Acetaminophen (Tylenol Tab) 650 mg Q4H PRN PO 05/16/17 05:45 06/15/17 05:44 Ticagrelor (Brilinta Cap) 90 mg BID PO 05/16/17 21:00 06/15/17 20:59 05/19/17 08:58 90 MG Ondansetron HCl (Zofran Inj) 4 mg Q6H PRN IV 05/16/17 06:15 06/15/17 06:14 Insulin Aspart (novoLOG ASPART) SLIDING SCALE If C... ACHS SC 05/16/17 06:45 06/15/17 06:44 05/19/17 12:03 8 UNITS Glucose (Glucose 40% Gel) UD PRN PO 05/16/17 06:15 06/15/17 06:14 Glucose (Glucose Chew Tab) 1 tabs UD PRN PO 05/16/17 06:15 06/15/17 06:14 Dextrose (Dextrose 50% 50ML Syringe) 50 ml UD PRN IV 05/16/17 06:15 06/15/17 06:14 Glucagon (Glucagon Inj) 1 mg UD PRN SQ 05/16/17 06:15 06/15/17 06:14 Miscellaneous Information (Consult Glycemic Management Pharmacy) 1 ea UD PRN N/A 05/16/17 08:45 06/15/17 08:44 Insulin Glargine (Lantus Solostar Pen) BID SC 05/16/17 21:00 06/15/17 20:59 05/19/17 12:03 20 UNITS Miscellaneous (Iv Fluids Completed) 1 ea PRN PRN N/A 05/16/17 14:00 05/16/18 13:59 Heparin Sodium (Porcine) (Heparin Sq 5000 Unit/0.5ml) 5,000 unit Q12 SQ 05/16/17 21:00 06/15/17 20:59 05/19/17 09:00 5,000 UNIT Lisinopril (Zestril Tab) 20 mg QAM PO 05/17/17 09:00 06/16/17 08:59 05/19/17 07:58 20 MG Tramadol HCl (Ultram Tab) 25 mg Q4H PRN PO 05/16/17 16:15 06/15/17 16:14 Metoprolol Succinate (Toprol Xl Tab) 50 mg BID PO 05/17/17 21:00 06/16/17 20:59 05/19/17 09:19 50 MG Menthol (Nice Kilo) 1 kilo PRN PRN PO 05/17/17 22:30 06/16/17 22:29 Lab Results: 05/19/17 06:37 Red Blood Count 4.48, Mean Corpuscular Volume 87.9, Mean Corpuscular Hemoglobin 30.4, Mean Corpuscular Hemoglobin Concent 34.5, Mean Platelet Volume 11.7, Neutrophils (%) (Auto) 53.4, Lymphocytes (%) (Auto) 31.0, Monocytes (%) (Auto) 9.7, Eosinophils (%) (Auto) 4.8, Basophils (%) (Auto) 0.7, Neutrophils # (Auto) 3.56, Lymphocytes # (Auto) 2.07, Monocytes # (Auto) 0.65, Eosinophils # (Auto) 0.32, Basophils # (Auto) 0.05 05/19/17 06:37 Test 05/19/17 06:37 05/19/17 16:33 White Blood Count 6.68 K/uL (4.8-10.8) Red Blood Count 4.48 M/uL (4.7-6.1) Hemoglobin 13.6 g/dL (14.0-18.0) Hematocrit 39.4 % (42-52) Mean Corpuscular Volume 87.9 fL (80-100) Mean Corpuscular Hemoglobin 30.4 pg (25-34) Mean Corpuscular Hemoglobin Concent 34.5 g/dl (32-36) Platelet Count 178 K/uL (130-400) Mean Platelet Volume 11.7 fL (7.4-10.4) Neutrophils (%) (Auto) 53.4 % Lymphocytes (%) (Auto) 31.0 % Monocytes (%) (Auto) 9.7 % Eosinophils (%) (Auto) 4.8 % Basophils (%) (Auto) 0.7 % Neutrophils # (Auto) 3.56 K/uL (1.4-6.5) Lymphocytes # (Auto) 2.07 K/uL (1.2-3.4) Monocytes # (Auto) 0.65 K/uL (0.11-0.59) Eosinophils # (Auto) 0.32 K/uL (0-0.5) Basophils # (Auto) 0.05 K/uL (0-0.2) RDW Standard Deviation 42.9 fL (36.4-46.3) RDW Coefficient of Variation 13.3 % (11.5-14.5) Immature Granulocyte % (Auto) 0.4 % Immature Granulocyte # (Auto) 0.03 K/uL (0.00-0.02) Anion Gap 9.0 mmol/L (3-11) Est Creatinine Clear Calc Drug Dose 59.2 ml/min Estimated GFR () 60.1 Estimated GFR (Non- 51.9 BUN/Creatinine Ratio 15.5 (10-20) Calcium Level 8.9 mg/dl (8.5-10.1) Bedside Glucose 120 mg/dl (70-99)
--- NOTE | 2017-05-19 17:08 | Procedure Note ---
Post-Mod Sedation Assessment General Date of Moderate Sedation May 19, 2017. Vital Signs: Vital Signs Past 12 Hours Date Time Temp Pulse Resp B/P (MAP) Pulse Ox O2 Delivery O2 Flow Rate FiO2 05/19/17 16:36 36.8 58 18 146/69 (94) 96 Room Air 05/19/17 12:00 95 Room Air 05/19/17 11:39 36.5 60 16 136/72 (93) 97 Room Air 05/19/17 08:05 36.5 73 18 130/80 (97) 94 Room Air 05/19/17 08:00 97 Room Air Review - Discharge Criteria Vital Signs Stable: Yes Alert/Oriented/Conversant: Yes Returned to Baseline Mental St: Yes Nausea Absent/Minimal: Yes Pain/Discomfort/Absent/Minimal: Yes Normal/Baseline Respirations: Yes Active Bleeding?: No Pt Received D/C Instructions: N/A Prescriptions Given: None Specific Proced. D/C Criteria Distal Pulses Present (Cardiac: Yes Groin site assessed-Card Cath: N/A Voided Prior To Discharge: N/A Discharged Patients Adult Escort/Transportation: Yes
--- NOTE | 2017-05-19 17:08 | Procedure Note ---
Pre-Mod Sedation Assessment General Date of Moderate Sedation: May 19, 2017. Vital Signs: Vital Signs Past 12 Hours Date Time Temp Pulse Resp B/P (MAP) Pulse Ox O2 Delivery O2 Flow Rate FiO2 05/19/17 16:36 36.8 58 18 146/69 (94) 96 Room Air 05/19/17 12:00 95 Room Air 05/19/17 11:39 36.5 60 16 136/72 (93) 97 Room Air 05/19/17 08:05 36.5 73 18 130/80 (97) 94 Room Air 05/19/17 08:00 97 Room Air Review Cardiovascular: regular rate, rhythm, no edema, no gallop Abdomen: normal bowel sounds, non tender, soft Lungs: chest non-tender, lungs clear Airway Class: II, III Pre-Sedation Airway Assessment Oral Cavity: WNL Able to Visualize Vocal Cords: No Short Thick Neck: No Hx of Sleep Apnea: No Smoking Status: Never Smoker Mallampati Classification: Class III ASA Classification: Class III Procedure Planning Contraindications-for Mod Sed: None Yes Notes The planned sedation has been discussed with the patient and consent obtained. I have identified the patient, determined the appropriateness of sedation and have assessed the patient immediately prior to the procedure. All medicine(s) and interventions are by my order.
--- NOTE | 2017-05-19 18:33 | Cardiac Catheterization ---
Procedure Note Procedure Date May 19, 2017. Pre-Procedure Diagnosis CAD AUC Score 7 Post-Procedure Diagnosis Severe CAD Procedure(s) Performed Drug Eluting Stent Svp Monetization Anthony Manager Social Work(s) Damon Estimated Blood Loss 20 Medication(s) Fentanyl, Heparin, Nitroglycerin, Versed, Lidocaine 1% Summary of Findings Indication: Staged PCI for residual CAD post PPCI for STEMI Access: 6Fr Right Radial Artery Catheters:EBU 3.75 guide -- PCI -- Antithrombotic therapy: heparin, on ticagrelor Procedure: LM cannulated with EBU 3.75 guide Initially unable to pass prowater wire past lesion Whisper wire with the aid of a 2.0 balloon passed across lesion into distal circumflex Proximal/mid circumflex lesion predilated with 2.0 compliant balloon Dilated lesion stented with 2.5x26 Resolute JOSE MARIA Stent post-dilated with 2.75 noncompliant balloon to high atmospheres IC vasodilators administered for spasm Post procedure REINA 3 flow, stents well expanded with minimal residual stenosis and no apparent cardiac complications. Arterial Closure: TR Band Summary: 1. Successful PCI of proximal-mid circumflex with 1 drug-eluting stent (2.5 x 26 Resolute, post-dilated to 2.75) Recommendations: Return to PCU for continued monitoring Continue dual-antiplatelet therapy for at least a year Continue statin/JOAQUIN/BBlocker Cardiac rehab as an outpatient Medical management of residual disease unless symptoms/ischemia as an outpatient. Hemodynamics Rest Ao: 113/59/85 Final Ao: 121/57/87 LV: -- Recommendations PCI without planned CABG Specimens None Radiation Exposure (mGy) 4473 Contrast (mls) 170 Visi Fluids (cc crystalloids) 90 NSS Drains None Anesthesia Moderate Procedural Complication(s) None Disposition PCU ACC Data Cardiac Status Clinical evaluation leading to the procedure CAD Presntation: Unstable angina Anginal Classification: CCS IV Heart Failure: No, NYHA Class: CCS I Cardiogenic Shock w/in 24Hrs: No Cardiac Arrest w/in 24Hrs: No Imaging studies past 6 months: Yes Stress studies past 6 months: No Standard Exercise Stress Test: No Stress Echocardiogram: No Stress Testing w/SPECT MPI: No Cardiac CTA: No Coronary Anatomy Dominant: Right Circumflex (% Stenosis): Proximal (80) Closure Device Percutaneous Entry Location: Radial Closure Device: Radial Band Recommendations: PCI without planned CABG PCI Indication: Staged PCI Lesion Segment Name: Proximal-mid circumflex Culprit Artery: No Stenosis Prior to Rx (%): 80 Chronic Total Occlusion: No IVUS: No FFR: No Pre-Procedure REINA Flow: 3 Previously Treated Lesion: No Lesion Complexity: Non-High/Non-C Lesion Length (mm): 20 Thrombus Present: No Bifurcation Lesion: No Guidewire Across Lesion: Yes Guidewire: Stenosis Post-Procedure (%): 0 Post-Procedure REINA Flow: 3 Device(s) Deployed: No Intraprocedure Events Significant Dissection: No Perforation: No
[2017-05-19] MEDS ORDERED: SODIUM CHLORIDE 0.9% 1000ML 1,000 ML IV SCH (18:45)
[2017-05-20] VITALS (10 sets, daily range): BP systolic 125–154; BP diastolic 75–88; PULSE 67–83; TEMP 36.6–36.8; O2SAT 92–96
--- NOTE | 2017-05-20 00:46 | Hospitalist Progress Note ---
Hospitalist Progress Note Date of Service May 19, 2017. Subjective Pt evaluation today including: conversation w/ patient, conversation w/ family Pt feels very well, no CP or SOB. Just returned from cath. All Other Systems: Reviewed and Negative Objective Vital Signs Date Time Temp Pulse Resp B/P (MAP) Pulse Ox O2 Delivery O2 Flow Rate FiO2 05/20/17 00:12 36.6 83 17 152/88 (109) 96 Room Air 05/20/17 00:00 Room Air 05/19/17 20:00 Room Air 05/19/17 19:53 71 20 137/71 (93) 95 Room Air 05/19/17 19:00 60 18 156/92 (113) 96 Room Air 05/19/17 18:45 36.8 50 21 150/72 (98) 96 Room Air 05/19/17 18:28 69 18 146/79 (101) 96 Room Air 05/19/17 18:18 70 18 135/70 (91) 96 Room Air 05/19/17 16:36 36.8 58 18 146/69 (94) 96 Room Air 05/19/17 16:00 96 Room Air 05/19/17 12:00 95 Room Air 05/19/17 11:39 36.5 60 16 136/72 (93) 97 Room Air 05/19/17 08:05 36.5 73 18 130/80 (97) 94 Room Air 05/19/17 08:00 97 Room Air 05/19/17 04:10 36.5 60 17 125/67 (86) 97 Room Air 05/19/17 04:00 Room Air Physical Exam General Appearance: WD/WN, no apparent distress, + obese Eyes: normal inspection, sclerae normal ENT: hearing grossly normal Neck: trachea midline Respiratory/Chest: lungs clear, normal breath sounds, no respiratory distress, no accessory muscle use Cardiovascular: regular rate, rhythm, no edema, no gallop, no murmur Abdomen: normal bowel sounds, non tender, soft Extremities: non-tender, normal inspection, no pedal edema, no calf tenderness Neurologic/Psychiatric: alert, normal mood/affect, oriented x 3 Skin: normal color, warm/dry, no rash, + pertinent finding (right wrist with TR band in place) Laboratory Results Last 24 Hours Test 05/19/17 06:37 05/19/17 16:33 05/19/17 17:57 05/19/17 20:37 White Blood Count 6.68 K/uL Red Blood Count 4.48 M/uL Hemoglobin 13.6 g/dL Hematocrit 39.4 % Mean Corpuscular Volume 87.9 fL Mean Corpuscular Hemoglobin 30.4 pg Mean Corpuscular Hemoglobin Concent 34.5 g/dl Platelet Count 178 K/uL Mean Platelet Volume 11.7 fL Neutrophils (%) (Auto) 53.4 % Lymphocytes (%) (Auto) 31.0 % Monocytes (%) (Auto) 9.7 % Eosinophils (%) (Auto) 4.8 % Basophils (%) (Auto) 0.7 % Neutrophils # (Auto) 3.56 K/uL Lymphocytes # (Auto) 2.07 K/uL Monocytes # (Auto) 0.65 K/uL Eosinophils # (Auto) 0.32 K/uL Basophils # (Auto) 0.05 K/uL RDW Standard Deviation 42.9 fL RDW Coefficient of Variation 13.3 % Immature Granulocyte % (Auto) 0.4 % Immature Granulocyte # (Auto) 0.03 K/uL Sodium Level 138 mmol/L Potassium Level 4.5 mmol/L Chloride Level 106 mmol/L Carbon Dioxide Level 23 mmol/L Anion Gap 9.0 mmol/L Blood Urea Nitrogen 20 mg/dl Creatinine 1.30 mg/dl Est Creatinine Clear Calc Drug Dose 59.2 ml/min Estimated GFR () 60.1 Estimated GFR (Non- 51.9 BUN/Creatinine Ratio 15.5 Random Glucose 159 mg/dl Calcium Level 8.9 mg/dl Bedside Glucose 120 mg/dl 163 mg/dl Kaolin Activated Coagulation Time 213 SECONDS Assessment and Plan Pt is a 81 yo male with a h/o HTN, DMII, and chronic LBP, and traumatic SDH, here with STEMI. Anterior STEMI - now stable s/p stenting with 2 drug-eluting stents to the LAD initially, now returned for stent of circumflex in second cath. Occluded LAD post PPCI with JOSE MARIA x 2. 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 Mildly dilated LV with mild concentric LVH. * 2. Moderate LV dysfunction. LVEF 35-40%. Moderate inferior hypokinesis. Apical akinesis. Moderate mid to apical anterior, anteroseptal, and septal hypokinesis. * 3. Borderline dilated RV, normal RV function. * 4. Grade I diastolic dysfunction. * 5. Mild mitral regurgitation. * 6. Mildly dilated aortic root (4.2 cm). -- Continue ASA/Ticagrelor -- Continue current toprol XL 100 mg daily -- Continue lisinopril 20mg daily -- continue statin HTN - improved after titration of metoprolol and lisinopril, continue to follow. titrate meds further if needed DM2 - ongoing glycemic consult. A1c 7.9, - continue insulin management. hasn't reached decision on change to basal bolus from 70/30 but also did d/w him that given RI and all the new meds with that, change in insulins likely would be better if he waits a little while to adjust cough -no worrisome s/s ---> might be from dry building vs from ACEi. if cough persists >1wk after discharge, then would warrant change from ACEi to ARB chronic low back pain-stable -f/u as outpatient Transaminitis - AST elevated at 100 on admission, improved down to 56. Likely secondary to STEMI -follow LFTs as outpat DVT proph - heparin SQ If stable, potential discharge tomorrow
[2017-05-20] MEDS: ATORVASTATIN 40 MG TAB PO SCH (07:44)
[2017-05-20] MEDS: LISINOPRIL 20 MG TAB PO SCH (07:44)
[2017-05-20] MEDS: ASPIRIN 81 MG ECTAB PO SCH (07:44)
[2017-05-20] MEDS: TICAGRELOR 90 MG TAB PO SCH (07:45)
[2017-05-20] MEDS: METOPROLOL SUCC 50MG EXT REL TAB PO SCH ×2 (07:45→21:15)
[2017-05-20] MEDS: INSULIN ASPART 100 UNITS/ML 3 ML PEN SC SCH ×4 (07:47→20:37)
[2017-05-20] MEDS: HEPARIN SOD 5000 UNIT/0.5 ML CARP SQ SCH ×2 (07:48→21:14)
[2017-05-20] MEDS: INSULIN GLARGINE SOLOSTAR 100 UNITS/ML 3 ML PEN SC SCH ×2 (07:48→21:13)
[2017-05-20 08:00] LABS: BASO % 0.6 %; BASO ABS # 0.03 K/uL (0-0.2); COMPLETE YES; EOS % 4.8 %; HEMATOCRIT 37.2 % (42-52); IG% 0.2 %; LYMPH % 24.2 %; LYMPH ABS # 1.26 K/uL (1.2-3.4); MEAN CELL VOLUME 87.5 fL (80-100); MEAN CORPUSCULAR HEMOGLOBIN 29.4 pg (25-34); MEAN CORPUSCULAR HGB CONC 33.6 g/dl (32-36); MEAN PLATELET VOLUME 11.1 fL (7.4-10.4); NEUT % 61.2 %; PLATELET COUNT 177 K/uL (130-400); RED BLOOD COUNT 4.25 M/uL (4.7-6.1); WHITE BLOOD COUNT 5.21 K/uL (4.8-10.8)
[2017-05-20 08:32] LABS: BLOOD UREA NITROGEN 15 mg/dl (7-18); BUN/CREATININE RATIO 14.6 (10-20); CALCIUM 8.5 mg/dl (8.5-10.1); CARBON DIOXIDE 22 mmol/L (21-32); CHLORIDE 109 mmol/L (98-107); CREATININE 0.99 mg/dl (0.60-1.40); GLUCOSE 130 mg/dl (70-99); SODIUM 139 mmol/L (136-145)
--- NOTE | 2017-05-20 08:59 | Cardiology Follow-Up ---
Subjective Subjective Date of Service: May 20, 2017. Pt evaluation today including: conversation w/ patient, physical exam, chart review, lab review, review of studies, review of inpatient medication list Additional Details: Feeling well. No chest pain. Breathing at baseline. No cough. No pain at wrist access site. Tele reviewed -- frequent PACs, PVCs, occasional bigeminy Problem List Medical Problems: (1) Hyperglycemia Status: Acute (2) STEMI (ST elevation myocardial infarction) Status: Acute Review of Systems Constitutional: No fever, No chills ENT: No hearing loss Abdomen: No pain, No nausea Male : No dysuria Psychiatric: No depression symptoms Heme: No abnormal bleeding/bruising Endo: No fatigue Skin: No rash Objective Vital Signs Last Vital Signs Documentation Date Time Temp Pulse Resp B/P (MAP) Pulse Ox O2 Delivery O2 Flow Rate FiO2 05/20/17 07:41 36.6 67 18 154/76 (102) 93 Room Air 05/17/17 02:00 2.0 Physical Exam: General Appearance: WD/WN, no apparent distress, + obese ENT: hearing grossly normal Neck: trachea midline Respiratory/Chest: lungs clear, normal breath sounds, no respiratory distress Cardiovascular: regular rate, rhythm, no edema, no JVD, + systolic murmur Abdomen: normal bowel sounds, non tender, soft Extremities: normal inspection, no pedal edema, no calf tenderness, + pertinent finding (no hematoma, ecchymosis at right radial artery access site. Intact distal pulses/sensation) Neurologic/Psychiatric: alert, normal mood/affect, oriented x 3 Skin: normal color, warm/dry, no rash, + pertinent finding (right wrist with TR band in place) Assessment and Plan 1. Anterior STEMI/Occluded LAD post PPCI with JOSE MARIA x 2 2. 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 Ischemic cardiomyopathy/Acute systolic heart failure 4. Hypertension 5. Frequent PVCs 6. Type 2 DM Patient stable from a cardiovascular standpoint this AM. No chest pain. No signs of heart failure. No apparent procedural complications, renal function stable. To walk halls later this morning and if does OK, fine for discharge today. -- Will transition patient from ticagrelor to clopidogrel. Give 300 mg today prior to discharge. Stop ticagrelor. -- Stop IV fluids. -- Increase lisinopril to 40 mg Discharge cardiac meds: -- Plavix 75 mg daily (start tomorrow) -- ASA 81 mg daily -- Atorvastatin 80 mg qhs -- Toprol XL 100 mg daily -- Lisinopril 40 mg daily -- After procedures avoid heavy lifting (>10 lbs) for next week. Gradually resume normal activities in 3 days. -- Follow-up with me in 2-3 weeks for repeat labs, possible spironolactone, discuss cardiac rehab. Medications: Current Inpatient Medications Medications (Trade) Dose Ordered Sig/Young Route Start Time Stop Time Status Last Admin Dose Admin Aspirin (Ecotrin Tab) 81 mg QAM PO 05/16/17 09:00 06/15/17 08:59 05/20/17 07:44 81 MG Atorvastatin Calcium (Lipitor Tab) 80 mg QAM PO 05/16/17 09:00 06/15/17 08:59 05/20/17 07:44 80 MG Acetaminophen (Tylenol Tab) 650 mg Q4H PRN PO 05/16/17 05:45 06/15/17 05:44 Ticagrelor (Brilinta Cap) 90 mg BID PO 05/16/17 21:00 06/15/17 20:59 05/20/17 07:45 90 MG Ondansetron HCl (Zofran Inj) 4 mg Q6H PRN IV 05/16/17 06:15 06/15/17 06:14 Insulin Aspart (novoLOG ASPART) SLIDING SCALE If C... ACHS SC 05/16/17 06:45 06/15/17 06:44 05/20/17 07:47 4 UNITS Glucose (Glucose 40% Gel) UD PRN PO 05/16/17 06:15 06/15/17 06:14 Glucose (Glucose Chew Tab) 1 tabs UD PRN PO 05/16/17 06:15 06/15/17 06:14 Dextrose (Dextrose 50% 50ML Syringe) 50 ml UD PRN IV 05/16/17 06:15 06/15/17 06:14 Glucagon (Glucagon Inj) 1 mg UD PRN SQ 05/16/17 06:15 06/15/17 06:14 Miscellaneous Information (Consult Glycemic Management Pharmacy) 1 ea UD PRN N/A 05/16/17 08:45 06/15/17 08:44 Insulin Glargine (Lantus Solostar Pen) BID SC 05/16/17 21:00 06/15/17 20:59 05/20/17 07:48 20 UNITS Miscellaneous (Iv Fluids Completed) 1 ea PRN PRN N/A 05/16/17 14:00 05/16/18 13:59 Heparin Sodium (Porcine) (Heparin Sq 5000 Unit/0.5ml) 5,000 unit Q12 SQ 05/16/17 21:00 06/15/17 20:59 05/20/17 07:48 5,000 UNIT Lisinopril (Zestril Tab) 20 mg QAM PO 05/17/17 09:00 06/16/17 08:59 05/20/17 07:44 20 MG Tramadol HCl (Ultram Tab) 25 mg Q4H PRN PO 05/16/17 16:15 06/15/17 16:14 Metoprolol Succinate (Toprol Xl Tab) 50 mg BID PO 05/17/17 21:00 06/16/17 20:59 05/20/17 07:45 50 MG Menthol (Nice Kilo) 1 kilo PRN PRN PO 05/17/17 22:30 06/16/17 22:29 Lab Results: 05/20/17 07:38 Red Blood Count 4.25, Mean Corpuscular Volume 87.5, Mean Corpuscular Hemoglobin 29.4, Mean Corpuscular Hemoglobin Concent 33.6, Mean Platelet Volume 11.1, Neutrophils (%) (Auto) 61.2, Lymphocytes (%) (Auto) 24.2, Monocytes (%) (Auto) 9.0, Eosinophils (%) (Auto) 4.8, Basophils (%) (Auto) 0.6, Neutrophils # (Auto) 3.19, Lymphocytes # (Auto) 1.26, Monocytes # (Auto) 0.47, Eosinophils # (Auto) 0.25, Basophils # (Auto) 0.03 05/20/17 07:38 Test 05/19/17 17:57 05/20/17 07:04 05/20/17 07:38 05/20/17 08:32 Kaolin Activated Coagulation Time 213 SECONDS (94-140) Bedside Glucose 130 mg/dl (70-99) White Blood Count 5.21 K/uL (4.8-10.8) Red Blood Count 4.25 M/uL (4.7-6.1) Hemoglobin 12.5 g/dL (14.0-18.0) Hematocrit 37.2 % (42-52) Mean Corpuscular Volume 87.5 fL (80-100) Mean Corpuscular Hemoglobin 29.4 pg (25-34) Mean Corpuscular Hemoglobin Concent 33.6 g/dl (32-36) Platelet Count 177 K/uL (130-400) Mean Platelet Volume 11.1 fL (7.4-10.4) Neutrophils (%) (Auto) 61.2 % Lymphocytes (%) (Auto) 24.2 % Monocytes (%) (Auto) 9.0 % Eosinophils (%) (Auto) 4.8 % Basophils (%) (Auto) 0.6 % Neutrophils # (Auto) 3.19 K/uL (1.4-6.5) Lymphocytes # (Auto) 1.26 K/uL (1.2-3.4) Monocytes # (Auto) 0.47 K/uL (0.11-0.59) Eosinophils # (Auto) 0.25 K/uL (0-0.5) Basophils # (Auto) 0.03 K/uL (0-0.2) RDW Standard Deviation 41.9 fL (36.4-46.3) RDW Coefficient of Variation 13.1 % (11.5-14.5) Immature Granulocyte % (Auto) 0.2 % Immature Granulocyte # (Auto) 0.01 K/uL (0.00-0.02) Anion Gap 8.0 mmol/L (3-11) Est Creatinine Clear Calc Drug Dose 77.4 ml/min Estimated GFR () 83.6 Estimated GFR (Non- 72.1 BUN/Creatinine Ratio 14.6 (10-20) Calcium Level 8.5 mg/dl (8.5-10.1)
[2017-05-20] MEDS ORDERED: CLOPIDOGREL BISULFATE 300 MG TAB PO ONE (09:00)
[2017-05-20] MEDS ORDERED: LSN40 PO (09:59)
[2017-05-20] MEDS ORDERED: ATOR-26 PO (09:59)
[2017-05-20] MEDS ORDERED: PLV75 PO (09:59)
[2017-05-20] MEDS ORDERED: METO1TAB68 PO (09:59)
[2017-05-20] MEDS ORDERED: ASPEC81 PO (09:59)
[2017-05-20 10:01] LABS: MAGNESIUM 1.9 mg/dl (1.8-2.4); POTASSIUM 4.3 mmol/L (3.5-5.1)
[2017-05-20] MEDS ORDERED: MAGNESIUM OXIDE 400 MG TAB PO STA (10:14)
--- NOTE | 2017-05-21 00:22 | Hospitalist Progress Note ---
Hospitalist Progress Note Date of Service May 20, 2017. Subjective Pt evaluation today including: conversation w/ patient, conversation w/ family , conversation w/ hr shared services consultant (Cardiology) Pt feels well, no CP or SOB. No concerns. I was about to discharge him and he had an asymptomatic 14 beat run of VT. Discussed with Cardiology who came back to see pt and review tele strip and discharge cancelled for further obs on tele All Other Systems: Reviewed and Negative Objective Vital Signs Date Time Temp Pulse Resp B/P (MAP) Pulse Ox O2 Delivery O2 Flow Rate FiO2 05/20/17 20:04 36.7 70 18 148/84 (105) 92 Nasal Cannula 05/20/17 20:00 96 Room Air 05/20/17 16:00 95 Room Air 05/20/17 15:51 36.6 74 16 131/81 (98) 93 Room Air 05/20/17 12:02 36.8 69 20 125/79 (94) 96 Room Air 05/20/17 12:00 Room Air 05/20/17 08:00 Room Air 05/20/17 07:41 36.6 67 18 154/76 (102) 93 Room Air 05/20/17 07:35 73 131/75 (93) 05/20/17 04:23 36.6 67 17 135/75 (95) 94 Room Air 05/20/17 04:00 Room Air Physical Exam General Appearance: WD/WN, no apparent distress Eyes: normal inspection, sclerae normal ENT: hearing grossly normal Neck: trachea midline Respiratory/Chest: lungs clear, normal breath sounds, no respiratory distress, no accessory muscle use Cardiovascular: regular rate, rhythm, no edema, no gallop, no murmur Abdomen: normal bowel sounds, non tender, soft Extremities: normal inspection, no pedal edema, no calf tenderness Neurologic/Psychiatric: alert, normal mood/affect, oriented x 3 Skin: normal color, warm/dry, no rash Laboratory Results Last 24 Hours Test 05/20/17 07:04 05/20/17 07:38 05/20/17 09:01 05/20/17 11:51 Bedside Glucose 130 mg/dl 165 mg/dl White Blood Count 5.21 K/uL Red Blood Count 4.25 M/uL Hemoglobin 12.5 g/dL Hematocrit 37.2 % Mean Corpuscular Volume 87.5 fL Mean Corpuscular Hemoglobin 29.4 pg Mean Corpuscular Hemoglobin Concent 33.6 g/dl Platelet Count 177 K/uL Mean Platelet Volume 11.1 fL Neutrophils (%) (Auto) 61.2 % Lymphocytes (%) (Auto) 24.2 % Monocytes (%) (Auto) 9.0 % Eosinophils (%) (Auto) 4.8 % Basophils (%) (Auto) 0.6 % Neutrophils # (Auto) 3.19 K/uL Lymphocytes # (Auto) 1.26 K/uL Monocytes # (Auto) 0.47 K/uL Eosinophils # (Auto) 0.25 K/uL Basophils # (Auto) 0.03 K/uL RDW Standard Deviation 41.9 fL RDW Coefficient of Variation 13.1 % Immature Granulocyte % (Auto) 0.2 % Immature Granulocyte # (Auto) 0.01 K/uL Sodium Level 139 mmol/L Potassium Level mmol/L 4.3 mmol/L Chloride Level 109 mmol/L Carbon Dioxide Level 22 mmol/L Anion Gap 8.0 mmol/L Blood Urea Nitrogen 15 mg/dl Creatinine 0.99 mg/dl Est Creatinine Clear Calc Drug Dose 77.4 ml/min Estimated GFR () 83.6 Estimated GFR (Non- 72.1 BUN/Creatinine Ratio 14.6 Random Glucose 130 mg/dl Calcium Level 8.5 mg/dl Magnesium Level mg/dl 1.9 mg/dl Test 05/20/17 16:28 05/20/17 20:00 Bedside Glucose 127 mg/dl 145 mg/dl Assessment and Plan Pt is a 81 yo male with a h/o HTN, DMII, and chronic LBP, and traumatic SDH, here with STEMI. Anterior STEMI - now stable s/p stenting with 2 drug-eluting stents to the LAD initially, then returned for stent of circumflex in second cath. Occluded LAD post PPCI with JOSE MARIA x 2. 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 ECHO: 1. Mildly dilated LV with mild concentric LVH. * 2. Moderate LV dysfunction. LVEF 35-40%. Moderate inferior hypokinesis. Apical akinesis. Moderate mid to apical anterior, anteroseptal, and septal hypokinesis. * 3. Borderline dilated RV, normal RV function. * 4. Grade I diastolic dysfunction. * 5. Mild mitral regurgitation. * 6. Mildly dilated aortic root (4.2 cm). -- Continue ASA/Plavix -- Continue toprol XL 100 mg daily -- increase lisinopril to 40mg daily -- continue statin hig intensity -will keep here for further tele observation for NSVT--> if recurs, may need LifeVest prior to discharge HTN - improved after titration of metoprolol and lisinopril, continue to follow. titrate meds further if needed DM2 - ongoing glycemic consult. A1c 7.9, - continue insulin -goal HgbA1C around 7.5% given CAD and age cough -no worrisome s/s ---> might be from dry building vs from ACEi. if cough persists >1wk after discharge, then would warrant change from ACEi to ARB chronic low back pain-stable -f/u as outpatient Transaminitis - AST elevated at 100 on admission, improved down to 56. Likely secondary to STEMI -follow LFTs as outpat DVT proph - heparin SQ If stable, potential discharge tomorrow
[2017-05-21 00:36] VITALS: BP 124/74; PULSE 63; TEMP 36.6; O2SAT 93
[2017-05-21 04:38] VITALS: BP 124/76; PULSE 75; TEMP 36.7; O2SAT 91
[2017-05-21 07:19] VITALS: BP 125/76; PULSE 63; TEMP 36.7; O2SAT 94
[2017-05-21] MEDS: ATORVASTATIN 40 MG TAB PO SCH (08:28)
[2017-05-21] MEDS: ASPIRIN 81 MG ECTAB PO SCH (08:28)
[2017-05-21] MEDS: INSULIN ASPART 100 UNITS/ML 3 ML PEN SC SCH (08:34)
[2017-05-21] MEDS: INSULIN GLARGINE SOLOSTAR 100 UNITS/ML 3 ML PEN SC SCH (08:34)
[2017-05-21] MEDS: HEPARIN SOD 5000 UNIT/0.5 ML CARP SQ SCH (08:35)
[2017-05-21] MEDS ORDERED: LISINOPRIL 40 MG TAB PO SCH (09:00)
[2017-05-21] MEDS ORDERED: CLOPIDOGREL BISULFATE 75 MG TAB PO SCH (09:00)
[2017-05-21] MEDS ORDERED: METOPROLOL SUCC 50MG EXT REL TAB PO SCH (09:00)
--- NOTE | 2017-05-21 09:03 | Cardiology Follow-Up ---
Subjective Subjective Date of Service: May 21, 2017. Pt evaluation today including: conversation w/ patient, physical exam, chart review, lab review, review of studies, review of inpatient medication list Additional Details: Feeling well. No chest pain. No other new symptoms. Tele reviewed -- frequent PVCs, occasional bigeminy/trigeminy. No further NS-VT Problem List Medical Problems: (1) Hyperglycemia Status: Acute (2) STEMI (ST elevation myocardial infarction) Status: Acute Review of Systems Constitutional: No fever, No chills ENT: No hearing loss Abdomen: No pain, No nausea Male : No dysuria Psychiatric: No depression symptoms Heme: No abnormal bleeding/bruising Endo: No fatigue Skin: No rash Objective Vital Signs Last Vital Signs Documentation Date Time Temp Pulse Resp B/P (MAP) Pulse Ox O2 Delivery O2 Flow Rate FiO2 05/21/17 07:50 Room Air 05/21/17 07:19 36.7 63 18 125/76 (92) 94 05/21/17 00:00 Physical Exam: General Appearance: no apparent distress ENT: hearing grossly normal Neck: trachea midline Respiratory/Chest: lungs clear, normal breath sounds, no respiratory distress, no accessory muscle use Cardiovascular: regular rate, rhythm, no edema, no gallop, no murmur Abdomen: normal bowel sounds, non tender, soft Extremities: normal inspection, no pedal edema, no calf tenderness Neurologic/Psychiatric: alert, normal mood/affect, oriented x 3 Skin: normal color, warm/dry, no rash Assessment and Plan 1. Anterior STEMI/Occluded LAD post PPCI with JOSE MARIA x 2 2. 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 Ischemic cardiomyopathy/Acute systolic heart failure 4. Hypertension 5. NS-VT/Frequent PVCs 6. Type 2 DM Patient stable from a cardiovascular standpoint this AM. No further events on telemetry OK for discharge today. Discharge cardiac meds: -- Plavix 75 mg daily -- ASA 81 mg daily -- Atorvastatin 80 mg qhs -- Toprol XL 100 mg daily -- Lisinopril 40 mg daily -- After procedures avoid heavy lifting (>10 lbs) for next week. Gradually resume normal activities in 3 days. -- Follow-up with me in 2-3 weeks for repeat labs, possible spironolactone, discuss cardiac rehab. Medications: Current Inpatient Medications Medications (Trade) Dose Ordered Sig/Young Route Start Time Stop Time Status Last Admin Dose Admin Aspirin (Ecotrin Tab) 81 mg QAM PO 05/16/17 09:00 06/15/17 08:59 05/21/17 08:28 81 MG Atorvastatin Calcium (Lipitor Tab) 80 mg QAM PO 05/16/17 09:00 06/15/17 08:59 05/21/17 08:28 80 MG Acetaminophen (Tylenol Tab) 650 mg Q4H PRN PO 05/16/17 05:45 06/15/17 05:44 Ondansetron HCl (Zofran Inj) 4 mg Q6H PRN IV 05/16/17 06:15 06/15/17 06:14 Insulin Aspart (novoLOG ASPART) SLIDING SCALE If C... ACHS SC 05/16/17 06:45 06/15/17 06:44 05/21/17 08:34 5 UNITS Glucose (Glucose 40% Gel) UD PRN PO 05/16/17 06:15 06/15/17 06:14 Glucose (Glucose Chew Tab) 1 tabs UD PRN PO 05/16/17 06:15 06/15/17 06:14 Dextrose (Dextrose 50% 50ML Syringe) 50 ml UD PRN IV 05/16/17 06:15 06/15/17 06:14 Glucagon (Glucagon Inj) 1 mg UD PRN SQ 05/16/17 06:15 06/15/17 06:14 Miscellaneous Information (Consult Glycemic Management Pharmacy) 1 ea UD PRN N/A 05/16/17 08:45 06/15/17 08:44 Insulin Glargine (Lantus Solostar Pen) BID SC 05/16/17 21:00 06/15/17 20:59 05/21/17 08:34 20 UNITS Miscellaneous (Iv Fluids Completed) 1 ea PRN PRN N/A 05/16/17 14:00 05/16/18 13:59 Heparin Sodium (Porcine) (Heparin Sq 5000 Unit/0.5ml) 5,000 unit Q12 SQ 05/16/17 21:00 06/15/17 20:59 05/21/17 08:35 5,000 UNIT Tramadol HCl (Ultram Tab) 25 mg Q4H PRN PO 05/16/17 16:15 06/15/17 16:14 Menthol (Nice Kilo) 1 kilo PRN PRN PO 05/17/17 22:30 06/16/17 22:29 Clopidogrel Bisulfate (plAVix TAB) 75 mg QAM PO 05/21/17 09:00 06/20/17 08:59 05/21/17 08:28 75 MG Lisinopril (Zestril Tab) 40 mg QAM PO 05/21/17 09:00 06/16/17 08:59 05/21/17 08:57 40 MG Metoprolol Succinate (Toprol Xl Tab) 100 mg QAM PO 05/21/17 09:00 06/16/17 20:59 05/21/17 08:29 100 MG Lab Results: Test 05/21/17 06:51 Bedside Glucose 131 mg/dl (70-99)
[2017-05-21 11:49] VITALS: BP 134/72; PULSE 82; TEMP 36.3; O2SAT 95
--- NOTE | 2017-05-21 12:01 | Discharge Instructions ---
Discharge Instructions Date of Service May 21, 2017. Admission Reason for Admission: STEMI Discharge Discharge Diagnosis / Problem: STEMI Discharge Goals Goal(s): Improve disease control, Diagnostic testing, Therapeutic intervention Activity Recommendations Activity Limitations: as noted below Exercise/Sports Limitations: until after follow-up appointment (with Cardiology ) Shower/Bathe: no limitations Driving or Machine Use: no limitations . Instructions / Follow-Up Instructions / Follow-Up You were admitted with a heart attack and had stens placed in your coronary arteries to open up blockages. It is very important you take all of the medications as prescribed. Please follow up with Cardiology in 2-3 weeks and with your PCP as scheduled for you tomorrow. Home Care: * Take your medications exactly as directed. Don't skip doses. * Remember that recovery after a heart attack takes time. Plan to rest for at lease 4-8 weeks while you recover. Then return to normal activity when your doctor says it's okay. * Ask your doctor about joining a heart rehabilitation program. * Tell your doctor if you are feeling depressed. Feelings of sadness are common after a heart attack, but it is important that you speak to someone if you are feeling overwhelmed by these feelings. * If you are having chest pain, call 911 for an ambulance. Do NOT drive yourself to the hospital. * Ask your family members to learn CPR. * Learn to take your own blood pressure and pulse. Keep a record of your results. Ask your doctor when you should seek emergency medical attention. He or she will tell you which blood pressure reading is dangerous. Lifestyle Changes: * Maintain a healthy weight. Get help to lose any extra pounds. * Cut back on salt. * Limit canned, dried, packaged, and fast foods. * Don't add salt to your food. * Season foods with herbs instead of salt when you cook. * Break the smoking habit. Enroll in a stop-smoking program to improve your chances of success. * Limit fatty foods. * Check your lipid levels regularly. (Your doctor can show you how to do this.) * Build up your activity according to your doctor's recommendation. * Ask your doctor when it's okay to resume sexual activity. * Tell your doctor about any erectile dysfunction (ED) medication you are taking. Some ED medications are not safe if you take certain heart medications. * Try to manage stress. Follow Up: It is important for you to keep your follow up appointments with your medical provider. Call 911 and go to the Emergency Room if: * You have tightness or pain in your chest that does not go away with rest or Nitroglycerin * You are very short of breath even with rest Call your doctor if any of the following symptoms or problems start or get worse: * Shortness of breath or difficulty breathing * Wake up at night short of breath * Chest pain * Cough * Swelling of your hands, fee, or legs * More fatigued or tired with your normal activity * Palpitations - sudden fast heart beats WEIGHT * Weigh yourself every morning after using the bathroom. * Use the same scale. * Wear the same amount of clothing. * Write your weight down on your chart. * Call your doctor if you gain more than 2-3 pounds in 1-2 days. MEDICATIONS * Use this discharge instruction sheet for instructions. * Take your medications at the time your doctor ordered. * Do not skip a dose of your medicines. * If you miss a dose of medicine, take as soon as possible, but DO NOT DOUBLE A DOSE. * Read your medicine information when you get home. * Know all of the side effects of your medicine. * Call your doctor's office if you have any side effects. * Be sure all of your doctors know what medicine and herbs you take (including cold, flu, and herbal medicine). * Pain Medicine: If you do not get relief from your pain, please call your doctor for help. Take the following with you to your follow-up doctor appointments: * Weight Chart * Medication List * List of questions Do not drink excessive alcohol, beer or wine. Current Hospital Diet Patient's current hospital diet: AHA Diet (Heart Healthy), Diabetes Type 2 Diet Discharge Diet Recommended Diet: AHA Diet (Heart Healthy), Diabetes Type 2 Diet Procedures Procedures Performed: Cardiac catheterization x 2 Echocardiogram Chest xray Pending Studies Studies pending at discharge: no Laboratory Results Hemoglobin A1c Test 05/17/17 05:00 Range/Units Estimated Average Glucose 180 mg/dl Hemoglobin A1c 7.9 H 4.5-5.6 % Lipid Panel Test 05/17/17 05:00 Range/Units Triglycerides Level 146 0-150 mg/dl Cholesterol Level 120 0-200 mg/dl HDL Cholesterol 33 mg/dl Cholesterol/HDL Ratio 3.6 LDL Cholesterol, Calculated 58 mg/dl Medical Emergencies . Who to Call and When: Medical Emergencies: If at any time you feel your situation is an emergency, please call 911 immediately. Call 911 immediately or go to your nearest Emergency Room if you experience any of the following: Warning Signs and Symptoms of a Heart Attack * Chest pain that is not relieved by medication * Shortness of breath . Non-Emergent Contact Non-Emergency issues call your: Primary Care Provider, Heart Surgeon Call Non-Emergent contact if: you have any medication questions . . "Provider Documentation" section prepared by Sury Beth. . AMI Core Measures Reason no ASA as I/P: Treatment provided - N/A Reason no ASA at D/C: Treatment provided - N/A Reason no statin as I/P: Treatment provided - N/A Reason no statin at D/C: Treatment provided - N/A VTE Core Measure Inpt VTE Proph given/why not?: Unfractionated heparin SQ
--- NOTE | 2017-05-21 12:20 | Discharge Summary ---
Discharge Summary Date of Service May 21, 2017. 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 Mildly dilated LV with mild concentric LVH. * 2. Moderate LV dysfunction. LVEF 35-40%. Moderate inferior hypokinesis. Apical akinesis. Moderate mid to apical anterior, anteroseptal, and septal hypokinesis. * 3. Borderline dilated RV, normal RV function. * 4. Grade I diastolic dysfunction. * 5. Mild mitral regurgitation. * 6. Mildly dilated aortic root (4.2 cm). Consultations: Cardiology Medication Reconciliation New Medications: Atorvastatin (Lipitor) 80 Mg Tab 80 MG PO HS for 30 Days, #30 TAB Lisinopril (Lisinopril) 40 Mg Tab 40 MG PO DAILY for 30 Days, #30 TABS Metoprolol Succinate (Toprol Xl) 100 Mg Tab 1 TAB PO DAILY for 30 Days, #30 TAB 0 Refills Aspirin (Aspirin EC Low Dose) 81 Mg Ectab 81 MG PO QAM for 30 Days Clopidogrel Bisulfate (Clopidogrel) 75 Mg Tab 75 MG PO QAM for 30 Days, #30 TAB to start on 05/21/17 Continued Medications: Glyburide (Micronase) 5 Mg Tab 5 MG PO BID, TAB Insulin Human NPH (Novolin N) 100 Units/Ml Susp 20 UNITS SQ QAM Insulin Human NPH (Novolin N) 100 Units/Ml Susp 45 UNITS SQ QPM Discontinued Medications: Lisinopril (Zestril) 20 Mg Tab 20 MG PO BID, TAB Metoprolol Tartrate (Lopressor) (Lopressor) 25 Mg Tab 12.5 MG PO BID, TAB Discharge Exam Doing very well, no further NSVT on tele. No CP or SOB Review of Systems: Constitutional: No fever Eyes: No problem reported ENT: No problem reported Respiratory: No shortness of breath, No problem reported Cardiovascular: No chest pain Abdomen: No pain, No nausea Musculoskeletal: No problem reported Genitourinary - Male: No problem reported Neurologic: No problem reported Psychiatric: No problem reported Endocrine: No problem reported Hematologic / Lymphatic: No problem reported Integumentary: No problem reported Physical Exam: General Appearance: WD/WN, no apparent distress, + obese Eyes: normal inspection, sclerae normal ENT: hearing grossly normal Neck: trachea midline Respiratory/Chest: lungs clear, normal breath sounds, no respiratory distress, no accessory muscle use Cardiovascular: regular rate, rhythm, no edema, no gallop, no murmur Abdomen / GI: normal bowel sounds, non tender, soft, no organomegaly Extremities: no calf tenderness, no pedal edema, normal range of motion Neurologic/Psychiatric: alert, normal mood/affect, oriented x 3 Skin: normal color, warm/dry, no rash Hospital Course Pt is a 81 yo male with a h/o HTN, DMII, and chronic LBP, and traumatic SDH, here with STEMI. Anterior STEMI - now stable s/p stenting with 2 drug-eluting stents to the LAD initially, then returned for stent of circumflex in second cath. Occluded LAD post PPCI with JOSE MARIA x 2. 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 No further VT last 24 hrs of monitoring ECHO: 1. Mildly dilated LV with mild concentric LVH. * 2. Moderate LV dysfunction. LVEF 35-40%. Moderate inferior hypokinesis. Apical akinesis. Moderate mid to apical anterior, anteroseptal, and septal hypokinesis. * 3. Borderline dilated RV, normal RV function. * 4. Grade I diastolic dysfunction. * 5. Mild mitral regurgitation. * 6. Mildly dilated aortic root (4.2 cm). -- Continue ASA/Plavix -- Continue toprol XL 100 mg daily -- increase lisinopril to 40mg daily -- continue statin high intensity -no further NSVT on tele -f/u Cardiology in 2-3 weeks -will need cardiac rehab and possibly addition of aldactone at f/u visit HTN - improved after titration of metoprolol and lisinopril, continue to follow. titrate meds further if needed DM2 - ongoing glycemic consult. A1c 7.9, - continue insulin home regimen upon discharge -goal HgbA1C around 7.5% given CAD and age cough -no worrisome s/s ---> might be from dry building vs from ACEi. if cough persists >1wk after discharge, then would warrant change from ACEi to ARB chronic low back pain-stable -f/u as outpatient Transaminitis - AST elevated at 100 on admission, improved down to 56. Likely secondary to STEMI -follow LFTs as outpat DVT proph - heparin SQ Discharge to home today Total Time Spent: Greater than 30 minutes This includes examination of the patient, discharge planning, medication reconciliation, and communication with other providers. Discharge Instructions Please refer to the electronic Patient Visit Report (Discharge Instructions) for additional information. Follow-Up PCP within 1 week Cardiology in 2-3 weeks Additional Copies To Twan Cruz MD; Daniel Anaya M.D.
== END 2017-05-21 13:00 | disposition home or self-care (01) | DRG 246 ==
LOC: C.EDB 02:15 → UNDOADMIN 05:53 → C.MSICU 05:53 → ENRESERV 05-17 14:58 → C.MSICU 05-17 16:40 → C.2T 05-17 16:40
PROVIDERS: ADMIT Hospitalist; ATTEND Family Medicine
PROC: 027034Z Dilation of Coronary Artery, One Artery with Drug-eluting Intraluminal Device, Percutaneous Approach (ICD-10-PCS; principal; 2017-05-16 04:01)
PROC: B2111ZZ Fluoroscopy of Multiple Coronary Arteries using Low Osmolar Contrast (ICD-10-PCS; principal; 2017-05-16 04:01)
PROC: 4A023N7 Measurement of Cardiac Sampling and Pressure, Left Heart, Percutaneous Approach (ICD-10-PCS; principal; 2017-05-16 04:01)
PROC: 027034Z Dilation of Coronary Artery, One Artery with Drug-eluting Intraluminal Device, Percutaneous Approach (ICD-10-PCS; 2017-05-19)
DX: I21.09 ST elevation (STEMI) myocardial infarction involving other coronary artery of anterior wall (principal); I50.21 Acute systolic (congestive) heart failure; I50.32 Chronic diastolic (congestive) heart failure; I47.2 Ventricular tachycardia; T82.855A Stenosis of coronary artery stent, initial encounter; E78.5 Hyperlipidemia, unspecified; I11.0 Hypertensive heart disease with heart failure; M54.5 Low back pain; I25.5 Ischemic cardiomyopathy; E11.65 Type 2 diabetes mellitus with hyperglycemia; I25.110 Atherosclerotic heart disease of native coronary artery with unstable angina pectoris; S06.5X9S Traumatic subdural hemorrhage with loss of consciousness of unspecified duration, sequela; W19.XXXS Unspecified fall, sequela; Z79.4 Long term (current) use of insulin; Y71.2 Prosthetic and other implants, materials and accessory cardiovascular devices associated with adverse incidents; Y92.239 Unspecified place in hospital as the place of occurrence of the external cause

== ENCOUNTER → 2017-06-13 | Outpatient (CLI) | payer OTHER, MEDICARE ==
[~2017-06-13] MED LIST changes: +ASPEC81 PO; +ATOR-26 PO; +GLYB5TAB8 PO; -LISI10TA PO; +LSN40 PO; +METO1TAB68 PO; -MISC1CAP60 PO; -NVLGI7030 SC; +NVLNI SQ; +PLV75 PO; +REGADENOSON 0.4 MG/5 ML SYR ONE
--- NOTE | 2017-06-14 10:02 | MYOCARDIAL PERFUSION SCAN ---
STUDY REQUESTED BY: Dr. Twan Cruz PRIMARY CARE PHYSICIAN: Dr. Anaya ONE-DAY NUCLEAR MEDICINE TECHNETIUM-99M CARDIOLITE MYOCARDIAL PERFUSION SCAN INDICATION: Prior anterior STEMI with residual diagonal disease. EKG: Normal sinus rhythm with occasional PACs, PVCs, left axis deviation and nonspecific ST change. Stress EKG with Lexiscan heart rate jarrod from 100 to 114. There were no Lexiscan-induced ST changes and there were decreased PVCs with Lexiscan injection. Heart rate jarrod from 105/67 to 150/67 and patient endorsed only minimal shortness of breath. TECHNIQUE: For the stress portion of the study 13.0 mCi of technetium-99m Cardiolite IV was injected at 11:30 a.m. on 06/13/2017. Thirty minutes following the injection imaging of the heart was performed in multiple projections. For the rest portion of the study, 11 mCi of technetium-99m Cardiolite was injected IV at 9:30 a.m. One hour following injection, imaging was performed in the same projections. FINDINGS: Raw images were reviewed in detail. There was mild diaphragmatic attenuation, minimal liver and gut uptake impacting the inferior imaging border of the heart. There was no significant extracardiac pathologic uptake. Short axis, vertical long axis, and horizontal long axis images were reviewed in detail. There was a fixed severe moderate in size perfusion defect involving the mid to apical anteroseptal and the apical and true apex. There is no significant reversibility. No other noted perfusion defects. LV size was normal with an end-diastolic volume of 129 mL and there was mild global dysfunction with apical akinesis and overall EF of 41%. IMPRESSIONS: 1. No significant Lexiscan induced ischemia. 2. Fixed moderate in size, severe defect involving the mid to apical anterior septum and true apex consistent with prior left anterior descending infarct. 3. Normal left ventricular size, mild global left ventricular dysfunction with apical akinesis and overall EF of 41%. 4. Nondiagnostic Lexiscan EKG due to inability to reach target heart rate. MTDD
== END | disposition home or self-care (01) ==
LOC: C.NUCL 08:59
PROVIDERS: ATTEND Internal Medicine Interventional Cardiology
DX: I25.10 Atherosclerotic heart disease of native coronary artery without angina pectoris (principal); Q21.1 Atrial septal defect

== ENCOUNTER → 2017-11-06 | Outpatient (CLI) | payer OTHER, MEDICARE ==
[~2017-11-06] MED LIST changes: -ATOR-26 PO; +METO-479 PO; -METO1TAB68 PO; -REGADENOSON 0.4 MG/5 ML SYR ONE
[2017-11-06 13:10] LABS: HEMATOCRIT 39.1 % (42-52); MEAN CELL VOLUME 88.1 fL (80-100); MEAN CORPUSCULAR HEMOGLOBIN 30.9 pg (25-34); MEAN PLATELET VOLUME 10.4 fL (7.4-10.4); PLATELET COUNT 195 K/uL (130-400); RED BLOOD COUNT 4.44 M/uL (4.7-6.1); WHITE BLOOD COUNT 7.27 K/uL (4.8-10.8)
[2017-11-06 13:20] LABS: ALT/SGPT 30 U/L (12-78); AST/SGOT 19 U/L (15-37); BLOOD UREA NITROGEN 20 mg/dl (7-18); BUN/CREATININE RATIO 15.3 (10-20); CALCIUM 8.5 mg/dl (8.5-10.1); CARBON DIOXIDE 23 mmol/L (21-32); CHLORIDE 101 mmol/L (98-107); CREATININE 1.32 mg/dl (0.60-1.40); GLUCOSE 189 mg/dl (70-99); POTASSIUM 4.1 mmol/L (3.5-5.1); SODIUM 133 mmol/L (136-145)
[2017-11-06 13:27] LABS: ALB/GLOB RATIO 0.9 (0.9-2); ALKALINE PHOSPHATASE 55 U/L (45-117)
== END | disposition home or self-care (01) ==
LOC: C.LAB1850 11:09
PROVIDERS: ATTEND Internal Medicine Interventional Cardiology
DX: I10 Essential (primary) hypertension (principal); I25.10 Atherosclerotic heart disease of native coronary artery without angina pectoris

== ENCOUNTER 2023-03-18 10:08 | Inpatient (IN) ==
[2023-03-18] MEDS ORDERED: RAPID SEQUENCE INDUCTION BAG ONE (10:11)
[2023-03-18] MEDS ORDERED: LORazepam 2 MG/1 ML VIAL IV STA ×2 (10:19→12:54)
[2023-03-18] MEDS ORDERED: STAT IV Infusion **Titration per Protocol STA (10:26)
[2023-03-18] MEDS ORDERED: PROPOFOL IV EMULSION 10 MG/ML 100 ML VIAL IV ONE (10:27)
[2023-03-18] MEDS ORDERED: Patient's HEIGHT &/or WEIGHT Needed SCH (10:45)
[2023-03-18 10:53] LABS: Hematocrit (blood only) 53.2 % (42.0-52.0); Hemoglobin 16.5 g/dl (14.0-18.0); Mean Corpuscular Hemoglobin 29.7 pg (25.0-34.0); Mean Corpuscular Volume 95.9 fL (80.0-100.0); Mean Platelet Volume 11.3 fL (9.4-12.4); Platelet Count 217 K/uL (130-400); RDW Coefficient of Variation 13.1 % (11.5-14.5); RDW Standard Deviation 46.2 fL (36.4-46.3); Red Blood Count 5.55 M/uL (4.70-6.10); White Blood Count 16.04 K/ul (4.8-10.8)
--- NOTE | 2023-03-18 10:55 | XRay Report ---
XR chest 1V portable HISTORY: 87 years-old Male READJUSTMENT OF ET TUBE acute respiratory failure COMPARISON: Chest radiograph of same day at 10:19 AM TECHNIQUE: Supine AP view of the chest FINDINGS: Cardiac silhouette is enlarged. Pulmonary vascular congestion with interstitial coarsening. Moderate right hemidiaphragmatic elevation. Endotracheal tube is present with distal tip overlying the midline , 2.6 cm superior to the christiano. No pneumothorax. Lateral left costophrenic angle is partially exclud ed from the [id number]. Probable small pleural effusions with mild bibasilar consolidative opaciti es. Bones appear grossly intact. IMPRESSION: 1. Repositioned endotracheal tube overlies the midline, 2.6 cm superior to the christiano. 2. Cardiomegaly with pulmonary vascular congestion and interstitial coarsening suggestive of pulmonar y edema. 3. No pneumothorax identified. ACT 112: Negative or not required by law. The above report was generated using voice recognition software. It may contain grammatical, syntax o r spelling errors. Electronically signed by: Jesús Maldonado M.D. 03/18/2023 10:54 AM
--- NOTE | 2023-03-18 10:58 | Emergency Department Note ---
Impression & Plan Altered mental status, Headache, Generalized tonic-clonic seizure, New onset seizure, Metabolic acidosis, Acute hyperglycemia, Leukocytosis ED Provider Note INFORMANT: and ems ED PROVIDER(S): Shaun Cunha DO CHIEF COMPLAINT: Headache and seizures and unresponsive PLAN: Disposition: Admission Outpatient prescription management: [none] Discussion with: I spoke with the hospitalist, who will see the patient for admission/observation and further evaluation and consultation. MEDICAL DECISION MAKING: This is a 87-year-old male who presents to the ED with a chief complaint of a headache. The patient was brought in by EMS. EMS reports that the patient was feeling weak since yesterday evening. He was not acting quite right this morning. He denies any trauma to EMS. He was initially awake alert and oriented. He did complain of a frontal headache that started around 430 this morning. Prehospital blood sugar was 248. The patient had a seizure that la sted for about 45 seconds in route to the hospital. He has no history of seizures according to the . He was not breathing well when he arrived. His breathing was somewhat agonal and he was endotracheally intubated. The patient's reports that he has been sleeping more than usual recently. This morning she noticed that there was told the paper all over the floor. She is not really sure why this occurred. Last night she noticed that his hands were shaking a lot. As if he had Parkinson's but he did not have any of these shakes before. The patient is left-handed but this morning was using his right hand. When the asked him to move his left hand, he did so without difficulty. This morning he seemed especially weak and she had to help him to the bathroom. He then slid off of the chair and she could not get him up. For this reason EMS was called. CT scan of the brain as well as CT angiograms of the head and neck were performed. 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 Otherwise no acute abnormality was seen. A CT scan of the abdomen pelvis did not show any acute abnormality. The patient's white blood cell count was 16. Lactic acid was elevated at 10.6. This could be related to the patient's seizure. Glucose is 329. PRP did not show any electrolyte abnormality or kidney dysfunction. Troponin was mildly elevated 25. The patient was hydrated with some IV fluids and the patient's lactic acid level on recheck was around 5. The patient did develop a fever of 37.9 during his ED stay. He was given 3 L of normal saline IV. The patient was also given IV Keppra for prophylaxis for seizure. He was given 2 mg of IV Ativan after intubation. Initial blood pressure was rather high. After intubation it was slightly on the low side and after CT scan it was elevated again the patient was given IV propofol as he started to fight the endotracheal tube slightly during his ED stay. He was given empiric IV cefepime for the possibility of infection. Orogastric tube was placed by nursing staff. Mccrary catheter was unable to be placed secondary to the patient's constricted urethra. No additional IV fluids were given after 3 L states his likely more than his ideal body weight. Blood pressure improved. Triage Nursing notes reviewed. Vital Signs: reviewed Prior /Outside records reviewed: [none] Differential diagnosis: Differential includes acute coronary syndrome, myocardial infarction, CVA, intracranial hemorrhage, tumor, anemia, infection, pneumonia, UTI, , dehydration, electrolyte disturbance,hypoglycemia, other Diagnostics, as interpreted by me: 12 lead ECG: Sinus rhythm rate of 111. PVCs. No ST elevation. Cardiac Monitoring ordered: Sinus rhythm Medical decision rules: [none] Imaging studies: Chest x-ray: Endotracheal tube is about 2 to 3 cm above the christiano. Some mild congestive changes Procedures: Endotracheal intubation: Reason: Acute respiratory failure RSI was performed using 20 mg of IV etomidate . The patient was intubated successfully and without difficulty with a MAC 4 blade. The endotracheal tube was visualized passing through the cords. The patient did not have any hypoxia. There was no hypotension. There was no complication. End-tidal CO2 detection was present. Bilateral breath sounds are present with good tube humidification. No epigastric sounds. It was taped at 23 cm at the lip line. Size 7.5 tube. ABG analysis: pH 7.23, PCO2 was 42 and PaO2 was 88. Adequate oxygenation. Normal ventilation but acidotic likely a metabolic acidosis. This correlates with an elevated lactic acid Critical care: I have personally spent 30 minutes of critical care time in the direct management of this patient. This includes bedside care, interpretation of diagnostic studies, and testing, discussion with consultants, patient, and family members, and other required patient management activities. This 30 minutes is in excess of all separately billable procedures. HPI: See MDM above. PAST MEDICAL HISTORY: See Below PAST SURGICAL HISTORY: See Below SOCIAL HISTORY: See Below HOME MEDICATIONS: See Below ALLERGIES: See Below VITALS: See Below PHYSICAL EXAMINATION: See MDM for positive findings otherwise unremarkable. CONSTITUTIONAL/VITAL SIGNS: Reviewed GENERAL:done as appropriate INTEGUMENTARY: done as appropriate HEAD: done as appropriate EYES: done as appropriate RESPIRATORY: done as appropriate CARDIOVASCULAR:done as appropriate GI/ABDOMEN:done as appropriate EXTREMITIES: done as appropriate NEUROLOGICAL: done as appropriate PSYCHIATRIC:done as appropriate MUSCULOSKELETAL:done as appropriate TRIAGE NURSING DOCUMENTATION REVIEWED. Past Med/Surg History Medical History CAD (coronary artery disease) Diabetes mellitus type 2, uncontrolled Hypertension Hypomagnesemia Hypoxia Sleep apnea in adult Surgical History History of brain surgery Family History Other Myocardial infarction No significant family history Denies family history of Ovarian cancer Prostate cancer Breast cancer Colorectal cancer Social History Smoking Status: Unknown if ever smoked Second Hand Exposure: No; Do You Dip or Chew Tobacco: No; Hx Alcohol Use: No Hx Substance Use: No Preferred Language: Czech Communication Ability: Effective Lead Ios Developer Required: No Beliefs That Will Affect Care: None marital status: Current Living Situation: Spouse current occupational status: employed 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, 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 Feels Safe at Home: Yes Dental Care, Regularly: No Physical Activity Frequency: 3-4 Times per Week Seatbelt Use: sometimes Assistive Devices: Glasses Allergies Allergies Allergy/AdvReac Type Severity Reaction Status Date / Time aspirin AdvReac Severe fell=subdural=wouldn't Verified 02/06/23 15:07 stop bleeding -BUT CURRENTLY TAKES IT metformin AdvReac Intermediate diarrhea Verified 02/06/23 15:07 Home Meds Home Medications Medication Instructions Recorded Confirmed aspirin 81 mg tablet,delayed 81 mg PO DAILY 06/28/19 02/06/23 release (Adult Aspirin Regimen) atorvastatin 80 mg tablet 80 mg PO DAILY 06/28/19 02/06/23 glyburide 5 mg tablet 10 mg PO BID 06/28/19 02/06/23 lisinopril 40 mg tablet 40 mg PO DAILY 06/28/19 02/06/23 nitroglycerin 0.4 mg sublingual 0.4 mg sublingual .COMPLEX 06/28/19 02/06/23 tablet Previous Rx's Medication Instructions Recorded spironolactone 25 mg tablet 25 mg PO DAILY #90 tabs 12/06/20 insulin NPH isoph U-100 human 100 44 unit (0.44 mL) subcut BID #30 mL 01/03/21 unit/mL subcutaneous suspension metoprolol succinate 50 mg 50 mg PO BID #180 tabs 10/01/21 tablet,extended release 24 hr Flutter Valve #1 ea 01/21/22 albuterol sulfate 90 mcg/actuation 2 puff inhalation Q6H PRN 01/21/22 aerosol inhaler Shortness Of Breath Or Wheezing #18 grams cetirizine 10 mg tablet 10 mg PO DAILY PRN allergy 07/08/22 symptoms #30 tabs furosemide 40 mg tablet 40 mg PO DAILY PRN shortness of 08/08/22 breath #30 tabs Results & Data (ED) Vital Signs Vital Signs - 24 hr 03/18/23 10:26 03/18/23 11:13 03/18/23 10:12 Temperature 37.9 C H Temperature Source Rectal Pulse Rate 113 H 116 H 115 H Pulse Rate [Left Apical] Pulse Rate from SpO2 Sensor Pulse Rhythm Regular Pulse Rhythm [Left Apical] Pulse Strength Normal Pulse Strength [Left Apical] Respiratory Rate 34 H 22 Respiratory Effort / Characteristics Respiratory Depth Respiratory Pattern Blood Pressure 197/92 H Blood Pressure [Left Arm] Blood Pressure Mean 127 Blood Pressure Mean [Left Arm] Blood Pressure Position Sitting Blood Pressure Position [Left Arm] Pulse Oximetry 94 97 Oxygen Delivery Method Fraction of Inspired Oxygen 50 Sepsis Recent Fever Within 48 Hours No Sepsis New/Unexplained Change in Mental Status Yes Sepsis Action Taken by Nursing Physician Notified End-Tidal CO2 38 03/18/23 11:18 03/18/23 11:11 03/18/23 10:57 Temperature Temperature Source Pulse Rate 96 H Pulse Rate [Left Apical] 100 H 99 H Pulse Rate from SpO2 Sensor Pulse Rhythm Pulse Rhythm [Left Apical] Regular Pulse Strength Pulse Strength [Left Apical] Normal Respiratory Rate 32 H 22 18 Respiratory Effort / Characteristics Mechanically Ventilated Non-Labored Spontaneous Respiratory Depth Normal Respiratory Pattern Regular Blood Pressure 98/52 L Blood Pressure [Left Arm] 98/52 L 100/64 Blood Pressure Mean 67 Blood Pressure Mean [Left Arm] 67 76 Blood Pressure Position Blood Pressure Position [Left Arm] Sitting Pulse Oximetry 93 92 93 Oxygen Delivery Method Mechanical Vent Mechanical Vent Mechanical Vent Fraction of Inspired Oxygen Sepsis Recent Fever Within 48 Hours Sepsis New/Unexplained Change in Mental Status Sepsis Action Taken by Nursing End-Tidal CO2 03/18/23 10:31 03/18/23 10:26 03/18/23 10:23 Temperature Temperature Source Pulse Rate Pulse Rate [Left Apical] 112 H 111 H 108 H Pulse Rate from SpO2 Sensor Pulse Rhythm Pulse Rhythm [Left Apical] Regular Regular Pulse Strength Pulse Strength [Left Apical] Normal Normal Respiratory Rate 22 22 22 Respiratory Effort / Characteristics Mechanically Ventilated Mechanically Ventilated Mechanically Ventilated Respiratory Depth Respiratory Pattern Blood Pressure Blood Pressure [Left Arm] 112/35 L 143/83 H 153/81 H Blood Pressure Mean Blood Pressure Mean [Left Arm] 60 103 105 Blood Pressure Position Blood Pressure Position [Left Arm] Lying Lying Pulse Oximetry 94 93 93 Oxygen Delivery Method Mechanical Vent Mechanical Vent Mechanical Vent Fraction of Inspired Oxygen Sepsis Recent Fever Within 48 Hours Sepsis New/Unexplained Change in Mental Status Sepsis Action Taken by Nursing End-Tidal CO2 03/18/23 12:21 03/18/23 12:27 03/18/23 10:23 Temperature Temperature Source Pulse Rate 104 H 95 H Pulse Rate [Left Apical] Pulse Rate from SpO2 Sensor Pulse Rhythm Pulse Rhythm [Left Apical] Pulse Strength Pulse Strength [Left Apical] Respiratory Rate 27 H 31 H Respiratory Effort / Characteristics Respiratory Depth Respiratory Pattern Blood Pressure 143/106 H 121/78 153/81 H Blood Pressure [Left Arm] Blood Pressure Mean 118 92 105 Blood Pressure Mean [Left Arm] Blood Pressure Position Blood Pressure Position [Left Arm] Pulse Oximetry 95 96 Oxygen Delivery Method Mechanical Vent Mechanical Vent Fraction of Inspired Oxygen Sepsis Recent Fever Within 48 Hours Sepsis New/Unexplained Change in Mental Status Sepsis Action Taken by Nursing End-Tidal CO2 03/18/23 10:24 03/18/23 10:30 03/18/23 10:31 Temperature Temperature Source Pulse Rate 109 H 112 H Pulse Rate [Left Apical] Pulse Rate from SpO2 Sensor 104 H 111 H Pulse Rhythm Pulse Rhythm [Left Apical] Pulse Strength Pulse Strength [Left Apical] Respiratory Rate 34 H 33 H Respiratory Effort / Characteristics Respiratory Depth Respiratory Pattern Blood Pressure 119/67 Blood Pressure [Left Arm] Blood Pressure Mean 84 Blood Pressure Mean [Left Arm] Blood Pressure Position Blood Pressure Position [Left Arm] Pulse Oximetry 93 93 Oxygen Delivery Method Fraction of Inspired Oxygen Sepsis Recent Fever Within 48 Hours Sepsis New/Unexplained Change in Mental Status Sepsis Action Taken by Nursing End-Tidal CO2 44 45 03/18/23 10:31 03/18/23 10:40 03/18/23 10:56 Temperature Temperature Source Pulse Rate 110 H 153 H Pulse Rate [Left Apical] Pulse Rate from SpO2 Sensor 109 H 100 H Pulse Rhythm Pulse Rhythm [Left Apical] Pulse Strength Pulse Strength [Left Apical] Respiratory Rate 37 H 17 Respiratory Effort / Characteristics Respiratory Depth Respiratory Pattern Blood Pressure Blood Pressure [Left Arm] Blood Pressure Mean Blood Pressure Mean [Left Arm] Blood Pressure Position Blood Pressure Position [Left Arm] Pulse Oximetry 94 93 Oxygen Delivery Method Fraction of Inspired Oxygen Sepsis Recent Fever Within 48 Hours Sepsis New/Unexplained Change in Mental Status Sepsis Action Taken by Nursing End-Tidal CO2 40 03/18/23 10:57 03/18/23 10:57 03/18/23 11:00 Temperature Temperature Source Pulse Rate Pulse Rate [Left Apical] Pulse Rate from SpO2 Sensor 103 H Pulse Rhythm Pulse Rhythm [Left Apical] Pulse Strength Pulse Strength [Left Apical] Respiratory Rate Respiratory Effort / Characteristics Respiratory Depth Respiratory Pattern Blood Pressure 100/64 102/56 L Blood Pressure [Left Arm] Blood Pressure Mean 76 71 Blood Pressure Mean [Left Arm] Blood Pressure Position Blood Pressure Position [Left Arm] Pulse Oximetry 94 Oxygen Delivery Method Fraction of Inspired Oxygen Sepsis Recent Fever Within 48 Hours Sepsis New/Unexplained Change in Mental Status Sepsis Action Taken by Nursing End-Tidal CO2 03/18/23 11:00 03/18/23 11:04 03/18/23 11:05 Temperature Temperature Source Pulse Rate 103 H 98 H Pulse Rate [Left Apical] Pulse Rate from SpO2 Sensor 101 H 100 H Pulse Rhythm Pulse Rhythm [Left Apical] Pulse Strength Pulse Strength [Left Apical] Respiratory Rate 34 H 35 H Respiratory Effort / Characteristics Respiratory Depth Respiratory Pattern Blood Pressure 106/55 L Blood Pressure [Left Arm] Blood Pressure Mean 72 Blood Pressure Mean [Left Arm] Blood Pressure Position Blood Pressure Position [Left Arm] Pulse Oximetry 93 93 Oxygen Delivery Method Fraction of Inspired Oxygen Sepsis Recent Fever Within 48 Hours Sepsis New/Unexplained Change in Mental Status Sepsis Action Taken by Nursing End-Tidal CO2 34 31 03/18/23 11:10 03/18/23 11:20 03/18/23 12:34 Temperature Temperature Source Pulse Rate 100 H 96 H 95 H Pulse Rate [Left Apical] Pulse Rate from SpO2 Sensor 103 H 97 H Pulse Rhythm Pulse Rhythm [Left Apical] Pulse Strength Pulse Strength [Left Apical] Respiratory Rate 28 H 24 28 H Respiratory Effort / Characteristics Respiratory Depth Respiratory Pattern Blood Pressure 122/68 Blood Pressure [Left Arm] Blood Pressure Mean 86 Blood Pressure Mean [Left Arm] Blood Pressure Position Blood Pressure Position [Left Arm] Pulse Oximetry 91 92 96 Oxygen Delivery Method Room Air Fraction of Inspired Oxygen Sepsis Recent Fever Within 48 Hours Sepsis New/Unexplained Change in Mental Status Sepsis Action Taken by Nursing End-Tidal CO2 37 37 03/18/23 12:50 03/18/23 11:20 03/18/23 11:25 Temperature Temperature Source Pulse Rate 88 99 H Pulse Rate [Left Apical] Pulse Rate from SpO2 Sensor 98 H Pulse Rhythm Pulse Rhythm [Left Apical] Pulse Strength Pulse Strength [Left Apical] Respiratory Rate 23 34 H Respiratory Effort / Characteristics Respiratory Depth Respiratory Pattern Blood Pressure 133/96 100/48 L Blood Pressure [Left Arm] Blood Pressure Mean 108 65 Blood Pressure Mean [Left Arm] Blood Pressure Position Blood Pressure Position [Left Arm] Pulse Oximetry 96 93 Oxygen Delivery Method Mechanical Vent Fraction of Inspired Oxygen Sepsis Recent Fever Within 48 Hours Sepsis New/Unexplained Change in Mental Status Sepsis Action Taken by Nursing End-Tidal CO2 33 03/18/23 11:25 03/18/23 11:30 03/18/23 11:30 Temperature Temperature Source Pulse Rate 97 H Pulse Rate [Left Apical] Pulse Rate from SpO2 Sensor 97 H Pulse Rhythm Pulse Rhythm [Left Apical] Pulse Strength Pulse Strength [Left Apical] Respiratory Rate 29 H Respiratory Effort / Characteristics Respiratory Depth Respiratory Pattern Blood Pressure 93/47 L 95/48 L Blood Pressure [Left Arm] Blood Pressure Mean 62 63 Blood Pressure Mean [Left Arm] Blood Pressure Position Blood Pressure Position [Left Arm] Pulse Oximetry 94 Oxygen Delivery Method Fraction of Inspired Oxygen Sepsis Recent Fever Within 48 Hours Sepsis New/Unexplained Change in Mental Status Sepsis Action Taken by Nursing End-Tidal CO2 35 03/18/23 11:54 03/18/23 11:57 03/18/23 11:57 Temperature Temperature Source Pulse Rate Pulse Rate [Left Apical] Pulse Rate from SpO2 Sensor 94 H 86 Pulse Rhythm Pulse Rhythm [Left Apical] Pulse Strength Pulse Strength [Left Apical] Respiratory Rate 25 H 26 H Respiratory Effort / Characteristics Respiratory Depth Respiratory Pattern Blood Pressure 148/87 H Blood Pressure [Left Arm] Blood Pressure Mean 107 Blood Pressure Mean [Left Arm] Blood Pressure Position Blood Pressure Position [Left Arm] Pulse Oximetry 93 96 Oxygen Delivery Method Fraction of Inspired Oxygen Sepsis Recent Fever Within 48 Hours Sepsis New/Unexplained Change in Mental Status Sepsis Action Taken by Nursing End-Tidal CO2 40 37 03/18/23 11:59 03/18/23 11:59 03/18/23 12:00 Temperature Temperature Source Pulse Rate 94 H 97 H Pulse Rate [Left Apical] Pulse Rate from SpO2 Sensor 98 H 94 H Pulse Rhythm Pulse Rhythm [Left Apical] Pulse Strength Pulse Strength [Left Apical] Respiratory Rate 23 28 H Respiratory Effort / Characteristics Respiratory Depth Respiratory Pattern Blood Pressure 166/82 H Blood Pressure [Left Arm] Blood Pressure Mean 110 Blood Pressure Mean [Left Arm] Blood Pressure Position Blood Pressure Position [Left Arm] Pulse Oximetry 97 97 Oxygen Delivery Method Fraction of Inspired Oxygen Sepsis Recent Fever Within 48 Hours Sepsis New/Unexplained Change in Mental Status Sepsis Action Taken by Nursing End-Tidal CO2 39 37 03/18/23 12:01 03/18/23 12:01 03/18/23 12:09 Temperature Temperature Source Pulse Rate 98 H 94 H Pulse Rate [Left Apical] Pulse Rate from SpO2 Sensor 98 H 98 H Pulse Rhythm Pulse Rhythm [Left Apical] Pulse Strength Pulse Strength [Left Apical] Respiratory Rate 21 29 H Respiratory Effort / Characteristics Respiratory Depth Respiratory Pattern Blood Pressure 149/85 H Blood Pressure [Left Arm] Blood Pressure Mean 106 Blood Pressure Mean [Left Arm] Blood Pressure Position Blood Pressure Position [Left Arm] Pulse Oximetry 97 97 Oxygen Delivery Method Fraction of Inspired Oxygen Sepsis Recent Fever Within 48 Hours Sepsis New/Unexplained Change in Mental Status Sepsis Action Taken by Nursing End-Tidal CO2 37 35 03/18/23 12:09 03/18/23 12:10 03/18/23 12:11 Temperature Temperature Source Pulse Rate 97 H 97 H Pulse Rate [Left Apical] Pulse Rate from SpO2 Sensor 96 H 94 H Pulse Rhythm Pulse Rhythm [Left Apical] Pulse Strength Pulse Strength [Left Apical] Respiratory Rate 34 H 31 H Respiratory Effort / Characteristics Respiratory Depth Respiratory Pattern Blood Pressure 141/113 H Blood Pressure [Left Arm] Blood Pressure Mean 122 Blood Pressure Mean [Left Arm] Blood Pressure Position Blood Pressure Position [Left Arm] Pulse Oximetry 97 96 Oxygen Delivery Method Fraction of Inspired Oxygen Sepsis Recent Fever Within 48 Hours Sepsis New/Unexplained Change in Mental Status Sepsis Action Taken by Nursing End-Tidal CO2 36 42 03/18/23 12:11 03/18/23 12:16 03/18/23 12:16 Temperature Temperature Source Pulse Rate 100 H Pulse Rate [Left Apical] Pulse Rate from SpO2 Sensor 98 H Pulse Rhythm Pulse Rhythm [Left Apical] Pulse Strength Pulse Strength [Left Apical] Respiratory Rate 27 H Respiratory Effort / Characteristics Respiratory Depth Respiratory Pattern Blood Pressure 135/72 132/82 Blood Pressure [Left Arm] Blood Pressure Mean 93 98 Blood Pressure Mean [Left Arm] Blood Pressure Position Blood Pressure Position [Left Arm] Pulse Oximetry 96 Oxygen Delivery Method Fraction of Inspired Oxygen Sepsis Recent Fever Within 48 Hours Sepsis New/Unexplained Change in Mental Status Sepsis Action Taken by Nursing End-Tidal CO2 38 03/18/23 12:20 03/18/23 12:21 03/18/23 12:21 Temperature Temperature Source Pulse Rate 100 H 115 H Pulse Rate [Left Apical] Pulse Rate from SpO2 Sensor 106 H 100 H Pulse Rhythm Pulse Rhythm [Left Apical] Pulse Strength Pulse Strength [Left Apical] Respiratory Rate 27 H 34 H Respiratory Effort / Characteristics Respiratory Depth Respiratory Pattern Blood Pressure 143/106 H Blood Pressure [Left Arm] Blood Pressure Mean 118 Blood Pressure Mean [Left Arm] Blood Pressure Position Blood Pressure Position [Left Arm] Pulse Oximetry 95 91 Oxygen Delivery Method Fraction of Inspired Oxygen Sepsis Recent Fever Within 48 Hours Sepsis New/Unexplained Change in Mental Status Sepsis Action Taken by Nursing End-Tidal CO2 36 35 03/18/23 12:26 03/18/23 12:26 03/18/23 12:30 Temperature Temperature Source Pulse Rate 96 H 99 H Pulse Rate [Left Apical] Pulse Rate from SpO2 Sensor 92 H 98 H Pulse Rhythm Pulse Rhythm [Left Apical] Pulse Strength Pulse Strength [Left Apical] Respiratory Rate 27 H 29 H Respiratory Effort / Characteristics Respiratory Depth Respiratory Pattern Blood Pressure 121/78 Blood Pressure [Left Arm] Blood Pressure Mean 92 Blood Pressure Mean [Left Arm] Blood Pressure Position Blood Pressure Position [Left Arm] Pulse Oximetry 95 94 Oxygen Delivery Method Fraction of Inspired Oxygen Sepsis Recent Fever Within 48 Hours Sepsis New/Unexplained Change in Mental Status Sepsis Action Taken by Nursing End-Tidal CO2 38 34 03/18/23 12:31 03/18/23 12:31 03/18/23 12:36 Temperature Temperature Source Pulse Rate 95 H 91 H Pulse Rate [Left Apical] Pulse Rate from SpO2 Sensor 98 H 94 H Pulse Rhythm Pulse Rhythm [Left Apical] Pulse Strength Pulse Strength [Left Apical] Respiratory Rate 27 H 32 H Respiratory Effort / Characteristics Respiratory Depth Respiratory Pattern Blood Pressure 122/68 Blood Pressure [Left Arm] Blood Pressure Mean 86 Blood Pressure Mean [Left Arm] Blood Pressure Position Blood Pressure Position [Left Arm] Pulse Oximetry 97 95 Oxygen Delivery Method Fraction of Inspired Oxygen Sepsis Recent Fever Within 48 Hours Sepsis New/Unexplained Change in Mental Status Sepsis Action Taken by Nursing End-Tidal CO2 37 34 03/18/23 12:36 03/18/23 12:40 03/18/23 12:41 Temperature Temperature Source Pulse Rate 99 H Pulse Rate [Left Apical] Pulse Rate from SpO2 Sensor 96 H Pulse Rhythm Pulse Rhythm [Left Apical] Pulse Strength Pulse Strength [Left Apical] Respiratory Rate 27 H Respiratory Effort / Characteristics Respiratory Depth Respiratory Pattern Blood Pressure 114/80 95/61 L Blood Pressure [Left Arm] Blood Pressure Mean 91 72 Blood Pressure Mean [Left Arm] Blood Pressure Position Blood Pressure Position [Left Arm] Pulse Oximetry 96 Oxygen Delivery Method Fraction of Inspired Oxygen Sepsis Recent Fever Within 48 Hours Sepsis New/Unexplained Change in Mental Status Sepsis Action Taken by Nursing End-Tidal CO2 38 03/18/23 12:41 03/18/23 12:46 03/18/23 12:46 Temperature Temperature Source Pulse Rate 94 H 105 H Pulse Rate [Left Apical] Pulse Rate from SpO2 Sensor 96 H 98 H Pulse Rhythm Pulse Rhythm [Left Apical] Pulse Strength Pulse Strength [Left Apical] Respiratory Rate 28 H 26 H Respiratory Effort / Characteristics Respiratory Depth Respiratory Pattern Blood Pressure 133/96 Blood Pressure [Left Arm] Blood Pressure Mean 108 Blood Pressure Mean [Left Arm] Blood Pressure Position Blood Pressure Position [Left Arm] Pulse Oximetry 95 96 Oxygen Delivery Method Fraction of Inspired Oxygen Sepsis Recent Fever Within 48 Hours Sepsis New/Unexplained Change in Mental Status Sepsis Action Taken by Nursing End-Tidal CO2 36 39 03/18/23 12:50 03/18/23 12:51 03/18/23 12:51 Temperature Temperature Source Pulse Rate 104 H 92 H Pulse Rate [Left Apical] Pulse Rate from SpO2 Sensor 100 H 96 H Pulse Rhythm Pulse Rhythm [Left Apical] Pulse Strength Pulse Strength [Left Apical] Respiratory Rate 29 H 25 H Respiratory Effort / Characteristics Respiratory Depth Respiratory Pattern Blood Pressure 117/67 Blood Pressure [Left Arm] Blood Pressure Mean 83 Blood Pressure Mean [Left Arm] Blood Pressure Position Blood Pressure Position [Left Arm] Pulse Oximetry 96 95 Oxygen Delivery Method Fraction of Inspired Oxygen Sepsis Recent Fever Within 48 Hours Sepsis New/Unexplained Change in Mental Status Sepsis Action Taken by Nursing [facility] CO2 37 45 03/18/23 12:56 03/18/23 12:56 03/18/23 13:00 Temperature Temperature Source Pulse Rate 98 H Pulse Rate [Left Apical] Pulse Rate from SpO2 Sensor 103 H Pulse Rhythm Pulse Rhythm [Left Apical] Pulse Strength Pulse Strength [Left Apical] Respiratory Rate 28 H Respiratory Effort / Characteristics Respiratory Depth Respiratory Pattern Blood Pressure 82/61 L 100/59 L Blood Pressure [Left Arm] Blood Pressure Mean 68 72 Blood Pressure Mean [Left Arm] Blood Pressure Position Blood Pressure Position [Left Arm] Pulse Oximetry 95 Oxygen Delivery Method Fraction of Inspired Oxygen Sepsis Recent Fever Within 48 Hours Sepsis New/Unexplained Change in Mental Status Sepsis Action Taken by Nursing [facility] CO2 35 03/18/23 13:00 03/18/23 13:06 03/18/23 13:06 Temperature Temperature Source Pulse Rate 91 H 98 H Pulse Rate [Left Apical] Pulse Rate from SpO2 Sensor 98 H 97 H Pulse Rhythm Pulse Rhythm [Left Apical] Pulse Strength Pulse Strength [Left Apical] Respiratory Rate 28 H 26 H Respiratory Effort / Characteristics Respiratory Depth Respiratory Pattern Blood Pressure 99/71 L Blood Pressure [Left Arm] Blood Pressure Mean 80 Blood Pressure Mean [Left Arm] Blood Pressure Position Blood Pressure Position [Left Arm] Pulse Oximetry 95 95 Oxygen Delivery Method Fraction of Inspired Oxygen Sepsis Recent Fever Within 48 Hours Sepsis New/Unexplained Change in Mental Status Sepsis Action Taken by Nursing [facility]-T[facility] CO2 31 34 03/18/23 13:10 03/18/23 13:11 03/18/23 13:11 Temperature Temperature Source Pulse Rate 93 H 99 H Pulse Rate [Left Apical] Pulse Rate from SpO2 Sensor 93 H 98 H Pulse Rhythm Pulse Rhythm [Left Apical] Pulse Strength Pulse Strength [Left Apical] Respiratory Rate 23 29 H Respiratory Effort / Characteristics Respiratory Depth Respiratory Pattern Blood Pressure 105/62 Blood Pressure [Left Arm] Blood Pressure Mean 76 Blood Pressure Mean [Left Arm] Blood Pressure Position Blood Pressure Position [Left Arm] Pulse Oximetry 95 95 Oxygen Delivery Method Fraction of Inspired Oxygen Sepsis Recent Fever Within 48 Hours Sepsis New/Unexplained Change in Mental Status Sepsis Action Taken by Nursing [facility] CO2 35 35 03/18/23 13:16 03/18/23 13:16 03/18/23 13:20 Temperature Temperature Source Pulse Rate 91 H 94 H Pulse Rate [Left Apical] Pulse Rate from SpO2 Sensor 92 H 96 H Pulse Rhythm Pulse Rhythm [Left Apical] Pulse Strength Pulse Strength [Left Apical] Respiratory Rate 26 H 24 Respiratory Effort / Characteristics Respiratory Depth Respiratory Pattern Blood Pressure 108/58 L Blood Pressure [Left Arm] Blood Pressure Mean 74 Blood Pressure Mean [Left Arm] Blood Pressure Position Blood Pressure Position [Left Arm] Pulse Oximetry 95 96 Oxygen Delivery Method Fraction of Inspired Oxygen Sepsis Recent Fever Within 48 Hours Sepsis New/Unexplained Change in Mental Status Sepsis Action Taken by Nursing [facility] CO2 37 38 03/18/23 13:21 03/18/23 13:21 Temperature Temperature Source Pulse Rate 103 H Pulse Rate [Left Apical] Pulse Rate from SpO2 Sensor 101 H Pulse Rhythm Pulse Rhythm [Left Apical] Pulse Strength Pulse Strength [Left Apical] Respiratory Rate 30 H Respiratory Effort / Characteristics Respiratory Depth Respiratory Pattern Blood Pressure 119/73 Blood Pressure [Left Arm] Blood Pressure Mean 88 Blood Pressure Mean [Left Arm] Blood Pressure Position Blood Pressure Position [Left Arm] Pulse Oximetry 94 Oxygen Delivery Method Fraction of Inspired Oxygen Sepsis Recent Fever Within 48 Hours Sepsis New/Unexplained Change in Mental Status Sepsis Action Taken by Nursing [facility] CO2 37 Laboratory Data 03/18/23 10:25 03/18/23 10:25 Lab Results 03/18/23 03/18/23 03/18/23 Range/Units 10:25 10:25 10:25 WBC 16.04 H (4.8-10.8) K/ul RBC 5.55 (4.70-6.10) M/uL Hgb 16.5 (14.0-18.0) g/dl POC Hgb (14.0-18.0) g/dl Hct 53.2 H (42.0-52.0) % POC Hct (42-52) % MCV 95.9 (80.0-100.0) fL MCH 29.7 (25.0-34.0) pg MCHC 31.0 L (32.0-36.0) g/dL RDW Std Deviation 46.2 (36.4-46.3) fL RDW Coeff of Michelle 13.1 (11.5-14.5) % Plt Count 217 (130-400) K/uL MPV 11.3 (9.4-12.4) fL Neutrophils % (Manual) 44 % Lymphocytes % (Manual) 6 % Monocytes % (Manual) 5 % Eosinophils % (Manual) 3 % Basophils % (Manual) 3 % Neutrophils # (Manual) 7.06 H (1.40-6.50) K/uL Total Absolute Neuts 7.06 H (1.4-6.5) K/uL Lymphocytes # (Manual) 0.96 L (1.2-3.4) K/uL Total Abs Lymphocytes 7.22 H (1.2-3.4) K/uL Monocytes # (Manual) 0.80 H (0.11-0.59) K/uL Eosinophils # (Manual) 0.48 (0-0.50) K/uL Basophils # (Manual) 0.48 H (0-0.2) K/uL Large Granular Lymphs 39 % # Lrg Granular Lymphs 6.26 K/uL PT 11.0 (9.0-12.0) Seconds INR 1.0 (0.9-1.1) APTT 29.7 (21.0-31.0) Seconds PTT Ratio 1.1 POC pH (7.35-7.45) POC pCO2 (35-46) mmHg POC pO2 (80-95) mmHg POC HCO3 (19-24) josue/L POC Total CO2 (24-31) mmol/L POC Base Excess (-9-1.8) josue/L POC ABG O2 Sat (90-95) % POC Sodium (135-144) mmol/L Sodium 136 (136-145) mmol/L POC Potassium (3.3-5.0) mmol/L Potassium 4.6 (3.5-5.1) mmol/L Chloride 102 (98-107) mmol/L Carbon Dioxide 11 L (21-32) mmol/L Anion Gap 23 H (3-11) BUN 18 (6-23) mg/dl Creatinine 1.26 (0.6-1.4) mg/dl Est Cr Clr Drug Dosing Not Reportable Est GFR ( Amer) 59.9 ml/min Est GFR (Non-Af Amer) 51.7 ml/min BUN/Creatinine Ratio 14.3 (10-20) Glucose 329 H* (70-99(Fasting)) mg/dl Lactate (0.4-2.0) mmol/L Calcium 9.3 (8.6-10.3) mg/dl Magnesium 2.0 (1.7-2.4) mg/dl Total Bilirubin 0.5 (0.2-1.0) mg/dl AST 24 (13-39) U/L ALT 20 (7-52) U/L Alkaline Phosphatase 68 (34-104) U/L Troponin I High Sens 25.8 H (0-20) pg/ml Total Protein 7.6 (6.0-8.3) gm/dl Albumin 4.2 (3.4-5.0) gm/dl Globulin 3.4 (2.5-4.0) gm/dl Albumin/Globulin Ratio 1.2 (0.9-2) SARS-CoV-2, RNA, NAAT (NEGATIVE) 03/18/23 03/18/23 03/18/23 Range/Units 11:15 11:15 11:28 WBC (4.8-10.8) K/ul RBC (4.70-6.10) M/uL Hgb (14.0-18.0) g/dl POC Hgb 15.0 (14.0-18.0) g/dl Hct (42.0-52.0) % POC Hct 44 (42-52) % MCV (80.0-100.0) fL MCH (25.0-34.0) pg MCHC (32.0-36.0) g/dL RDW Std Deviation (36.4-46.3) fL RDW Coeff of Michelle (11.5-14.5) % Plt Count (130-400) K/uL MPV (9.4-12.4) fL Neutrophils % (Manual) % Lymphocytes % (Manual) % Monocytes % (Manual) % Eosinophils % (Manual) % Basophils % (Manual) % Neutrophils # (Manual) (1.40-6.50) K/uL Total Absolute Neuts (1.4-6.5) K/uL Lymphocytes # (Manual) (1.2-3.4) K/uL Total Abs Lymphocytes (1.2-3.4) K/uL Monocytes # (Manual) (0.11-0.59) K/uL Eosinophils # (Manual) (0-0.50) K/uL Basophils # (Manual) (0-0.2) K/uL Large Granular Lymphs % # Lrg Granular Lymphs K/uL PT (9.0-12.0) Seconds INR (0.9-1.1) APTT (21.0-31.0) Seconds PTT Ratio POC pH 7.23 L (7.35-7.45) POC pCO2 42 (35-46) mmHg POC pO2 88 (80-95) mmHg POC HCO3 18 L (19-24) josue/L POC Total CO2 19 L (24-31) mmol/L POC Base Excess -10.0 L (-9-1.8) josue/L POC ABG O2 Sat 95.0 (90-95) % POC Sodium 135 (135-144) mmol/L Sodium (136-145) mmol/L POC Potassium 5.6 H (3.3-5.0) mmol/L Potassium (3.5-5.1) mmol/L Chloride (98-107) mmol/L Carbon Dioxide (21-32) mmol/L Anion Gap (3-11) BUN (6-23) mg/dl Creatinine (0.6-1.4) mg/dl Est Cr Clr Drug Dosing Est GFR ( Amer) ml/min Est GFR (Non-Af Amer) ml/min BUN/Creatinine Ratio (10-20) Glucose (70-99(Fasting)) mg/dl Lactate 10.9 H* (0.4-2.0) mmol/L Calcium (8.6-10.3) mg/dl Magnesium (1.7-2.4) mg/dl Total Bilirubin (0.2-1.0) mg/dl AST (13-39) U/L ALT (7-52) U/L Alkaline Phosphatase (34-104) U/L Troponin I High Sens (0-20) pg/ml Total Protein (6.0-8.3) gm/dl Albumin (3.4-5.0) gm/dl Globulin (2.5-4.0) gm/dl Albumin/Globulin Ratio (0.9-2) SARS-CoV-2, RNA, NAAT NEGATIVE (NEGATIVE) 03/18/23 Range/Units 12:20 WBC (4.8-10.8) K/ul RBC (4.70-6.10) M/uL Hgb (14.0-18.0) g/dl POC Hgb (14.0-18.0) g/dl Hct (42.0-52.0) % POC Hct (42-52) % MCV (80.0-100.0) fL MCH (25.0-34.0) pg MCHC (32.0-36.0) g/dL RDW Std Deviation (36.4-46.3) fL RDW Coeff of Michelle (11.5-14.5) % Plt Count (130-400) K/uL MPV (9.4-12.4) fL Neutrophils % (Manual) % Lymphocytes % (Manual) % Monocytes % (Manual) % Eosinophils % (Manual) % Basophils % (Manual) % Neutrophils # (Manual) (1.40-6.50) K/uL Total Absolute Neuts (1.4-6.5) K/uL Lymphocytes # (Manual) (1.2-3.4) K/uL Total Abs Lymphocytes (1.2-3.4) K/uL Monocytes # (Manual) (0.11-0.59) K/uL Eosinophils # (Manual) (0-0.50) K/uL Basophils # (Manual) (0-0.2) K/uL Large Granular Lymphs % # Lrg Granular Lymphs K/uL PT (9.0-12.0) Seconds INR (0.9-1.1) APTT (21.0-31.0) Seconds PTT Ratio POC pH (7.35-7.45) POC pCO2 (35-46) mmHg POC pO2 (80-95) mmHg POC HCO3 (19-24) josue/L POC Total CO2 (24-31) mmol/L POC Base Excess (-9-1.8) josue/L POC ABG O2 Sat (90-95) % POC Sodium (135-144) mmol/L Sodium (136-145) mmol/L POC Potassium (3.3-5.0) mmol/L Potassium (3.5-5.1) mmol/L Chloride (98-107) mmol/L Carbon Dioxide (21-32) mmol/L Anion Gap (3-11) BUN (6-23) mg/dl Creatinine (0.6-1.4) mg/dl Est Cr Clr Drug Dosing Est GFR ( Amer) ml/min Est GFR (Non-Af Amer) ml/min BUN/Creatinine Ratio (10-20) Glucose (70-99(Fasting)) mg/dl Lactate 5.1 H* (0.4-2.0) mmol/L Calcium (8.6-10.3) mg/dl Magnesium (1.7-2.4) mg/dl Total Bilirubin (0.2-1.0) mg/dl AST (13-39) U/L ALT (7-52) U/L Alkaline Phosphatase (34-104) U/L Troponin I High Sens (0-20) pg/ml Total Protein (6.0-8.3) gm/dl Albumin (3.4-5.0) gm/dl Globulin (2.5-4.0) gm/dl Albumin/Globulin Ratio (0.9-2) SARS-CoV-2, RNA, NAAT (NEGATIVE) Administered Medications Propofol (Diprivan) 1,000 mg in 100 mls @ 31.68 mls/hr IV .Q3H10M [facility]; Protocol Stop: 03/21/23 10:29 Last Titration: 03/18/23 13:21 Dose: 40 mcg/kg/min, 31.7 mls/hr Documented By: Titration: 03/18/23 12:49 Dose: 35 mcg/kg/min, 27.7 mls/hr Documented By: Titration: 03/18/23 12:31 Dose: 30 mcg/kg/min, 23.8 mls/hr Documented By: Titration: 03/18/23 12:24 Dose: 25 mcg/kg/min, 19.8 mls/hr Documented By: Admin: 03/18/23 12:03 Dose: 20 mcg/kg/min, 15.8 mls/hr Documented By: AM Co-signed By: DAVONTE Sodium Chloride (Nss 1000ml) 2,000 mls @ 999 mls/hr IV .Q2H1M ONE Stop: 03/18/23 13:49 Last Admin: 03/18/23 12:22 Dose: 999 mls/hr Documented By: AM Propofol (Propofol Bolus From Bag) 20 mg IV Q5M PRN PRN Reason: Sedation Stop: 03/21/23 10:25 Last Admin: 03/18/23 12:52 Dose: 20 mg Documented By: AM Co-signed By: DAVONTE Admin: 03/18/23 12:32 Dose: 20 mg Documented By: AZEEM Co-signed By: KAVITA Admin: 03/18/23 12:17 Dose: 20 mg Documented By: AZEEM Co-signed By: DAVONTE Discontinued Medications Levetiracetam 2,000 mg/ Sodium (Chloride) 270 mls @ 999 mls/hr IV NOW STA Stop: 03/18/23 10:46 Last Infusion: 03/18/23 11:24 Dose: 0 mls/hr Documented By: Admin: 03/18/23 11:01 Dose: 999 mls/hr Documented By: KARLO Cefepime HCl (Maxipime) 2,000 mg in 20 mls @ 5 mls/min IV NOW STA; Protocol Stop: 03/18/23 12:17 Last Admin: 03/18/23 12:37 Dose: 5 mls/min Documented By: AZEEM Sodium Chloride (Nss 1000ml) 1,000 mls @ 999 mls/hr IV .Q1H1M ONE Stop: 03/18/23 13:15 Last Admin: 03/18/23 12:17 Dose: 999 mls/hr Documented By: AZEEM Ioversol (Optiray 320 500ml) 115 ml IV ONCE ONE Stop: 03/18/23 11:55 Last Admin: 03/18/23 11:44 Dose: 115 ml Documented By: ALINE Lorazepam (Lorazepam 2 Mg/1 Ml Vial) 2 mg IV NOW STA Stop: 03/18/23 10:20 Last Admin: 03/18/23 10:19 Dose: 2 mg Documented By: KARLO Lorazepam (Lorazepam 2 Mg/1 Ml Vial) 2 mg IV NOW STA Stop: 03/18/23 12:55 Last Admin: 03/18/23 13:02 Dose: 2 mg Documented By: AZEEM Miscellaneous (Stat Iv Infusion Titration Per Protocol) 1 each N/A NOW STA Stop: 03/18/23 10:27 Last Admin: 03/18/23 12:23 Dose: Not Given Documented By: AZEEM Miscellaneous (Patient's Height &/Or Weight Needed) 1 each N/A Q2H LINDA Stop: 04/17/23 10:44 Last Admin: 03/18/23 11:24 Dose: 1 each Documented By: AZEEM Propofol (Propofol Iv Emulsion 10 Mg/Ml 100 Ml Vial) Confirm Administered Dose 1,000 mg IV .STK-MED ONE Stop: 03/18/23 10:28 Last Admin: 03/18/23 12:23 Dose: Not Given Documented By: AM Sodium Bicarbonate (Sodium Bicarb 8.4% Inj 50 Meq/50 Ml Syr) 50 meq IV NOW STA Stop: 03/18/23 11:55 Last Admin: 03/18/23 12:08 Dose: 50 meq Documented By: AM Imaging Data Radiologist's Impression: Chest X-Ray 03/18/23 10:19 SINGLE VIEW CHEST CLINICAL HISTORY: Neurological deficit. Stroke like symptoms. FINDINGS: An AP, portable, supine chest radiograph is compared to study dated 01/31/2022. The examination is degraded by portable technique and apical lordotic positioning. An endotracheal tube has been placed. The tip projects over the right mainstem bronchus. The heart is enlarged noting atherosclerotic calcification of the thoracic aorta. There is pulmonary vascular congestion. Small pleural effusions are suspected. There is elevation of the right hemidiaphragm and bibasilar atelectasis. No pneumothorax is seen. The skeletal structures are osteopenic. The bony thorax is grossly intact. IMPRESSION: 1. An endotracheal tube has been placed. The tip projects over the mainstem bronchus, and less has been pulled back on a subsequent examination. 2. Cardiomegaly with evidence of congestive failure. 3. Suspect pleural effusions ACT 112: Negative or not required by law. Electronically signed by: Russel Bocanegra M.D. 03/18/2023 11:[address] 03/18/23 10:19 CT SCAN OF THE BRAIN WITHOUT IV CONTRAST CLINICAL HISTORY: Neurological deficit. Stroke like symptoms. COMPARISON STUDY: CT of the brain dated 06/19/2009. TECHNIQUE: Unenhanced axial CT scan of the brain is performed from the vertex to the skull base. A dose lowering technique was utilized adhering to the principles of ALARA. The skull base was scanned twice due to motion artifact. CT DOSE: 1246.76 mGy.cm FINDINGS: Brain parenchyma: There is age-related involutional change noting mild to moderate subcortical and periventricular microangiopathic disease. There is no hemorrhage, mass effect, or evidence of acute territorial ischemia by CT criteria. Simmons-white matter differentiation is preserved. No extra-axial fluid collection is seen. Ventricles, sulci, cisterns: Prominent secondary to involutional change. Intracranial vasculature: There is atherosclerotic calcification of the cavernous carotid and vertebral arteries. Calvarium: There is postsurgical change from left-sided craniotomy. No destructive calvarial lesion is seen. Sinuses and mastoids: The paranasal sinuses are clear. The mastoid air cells are well pneumatized. Orbits: The bony orbits are grossly intact. There are bilateral ocular lens implants. IMPRESSION: There is no hemorrhage, mass effect, or evidence of acute territorial ischemia by CT criteria. ACT 112: Negative or not required by law. Electronically signed by: Russel Bocanegra M.D. 03/18/2023 11:06 AM Chest X-Ray 03/18/23 10:43 XR chest 1V portable HISTORY: 87 years-old Male READJUSTMENT OF ET TUBE acute respiratory failure COMPARISON: Chest radiograph of same day at 10:19 AM TECHNIQUE: Supine AP view of the chest FINDINGS: Cardiac silhouette is enlarged. Pulmonary vascular congestion with interstitial coarsening. Moderate right hemidiaphragmatic elevation. Endotracheal tube is present with distal tip overlying the midline, 2.6 cm superior to the christiano. No pneumothorax. Lateral left costophrenic angle is partially excluded from the [id number]. Probable small pleural effusions with mild bibasilar consolidative opacities. Bones appear grossly intact. IMPRESSION: 1. Repositioned endotracheal tube overlies the midline, 2.6 cm superior to the christiano. 2. Cardiomegaly with pulmonary vascular congestion and interstitial coarsening suggestive of pulmonary edema. 3. No pneumothorax identified. ACT 112: Negative or not required by law. The above report was generated using voice recognition software. It may contain grammatical, syntax or spelling errors. Electronically signed by: Jesús Maldonado M.D. 03/18/2023 10:54 AM Head CTA 03/18/23 11:25 CT ANGIOGRAM OF THE BRAIN; CT ANGIOGRAM OF THE NECK CLINICAL HISTORY: Change in mental status. Headache. Seizure. Neurological deficit. COMPARISON STUDY: CT of the brain performed concurrently on 03/18/2023. TECHNIQUE: Following the IV administration of 115 of Optiray 320, CT angiogram of the head and neck was performed from the aortic arch to the vertex. Images are reviewed in the axial, sagittal, and coronal planes. 3-D MIPS images are created and assessed. IV contrast was administered without complication. All measurements were calculated based on NASCET criteria. A dose lowering technique was utilized adhering to the principles of ALARA. The examinations are degraded by motion artifact. CT DOSE: 5214.93 mGy.cm FINDINGS: Brain parenchyma: There is age-related involutional change noting mild to moderate subcortical and periventricular microangiopathic disease. There is no evidence of hemorrhage, mass effect, or acute territorial ischemia no definite angiographic phase technique. There is no evidence of enhancing mass lesion on the angiogram phase images. The ventricles, sulci, and cisterns are prominent secondary to involutional change. Simmons-white matter differentiation is preserved. No extra-axial fluid collection is seen. Thoracic aorta: There is atherosclerotic calcification of the thoracic aorta. Visualized portions of the thoracic aorta are normal in caliber. The aortic arch demonstrates standard 3-vessel anatomy. Right carotid arterial system: The right common carotid artery is widely patent, as are the right internal and external carotid arteries. Calcified plaque is seen in the carotid bulb. Left carotid arterial system: The left common carotid artery is widely patent, as are the left internal and external carotid arteries. Calcified plaque is noted in the carotid bulb. Vertebral arteries: The left vertebral artery is dominant and widely patent. The right vertebral artery is diminutive. There is high-grade stenosis at the origin of the right vertebral artery seen on axial image #86. 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 Subclavian arteries: Widely patent bilaterally. Intracranial vasculature: The internal carotid arteries are patent at the skull base, as are the anterior and middle cerebral arteries bilaterally. The left vertebral artery and basilar artery are patent. 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 The left vertebral artery is dominant. There is origin of the left posterior cerebral artery. There is no aneurysm, high-grade stenosis, or focal vessel cut off seen throughout the intracranial circulation. Jugular veins: Patent bilaterally. Dural sinuses: Patent. Lung apices: An endotracheal tube is in place. This terminates above the christiano. There is a left upper lobe calcified granuloma. Dependent atelectasis is seen in both lungs. Soft tissues: An enteric tube is in place. The visualized pharyngeal soft tissues are normal in appearance noting angiographic phase technique. The oropharyngeal airway appears widely patent. The salivary and thyroid glands are normal in appearance. No cervical lymphadenopathy is seen. Skeletal structures: The skeletal structures are osteopenic. There is pos tsurgical change from left-sided craniotomy. No destructive calvarial lesion is seen. The cervical spine is maintained noting advanced multilevel spondylosis. No lytic or blastic lesion is seen. Orbits: The bony orbits are intact. Orbital contents are normal as visualized n oting bilateral ocular lens implants. Sinuses and mastoids: The paranasal sinuses are clear. There is trace right mastoid effusion. The left mastoid air cells are well pneumatized. IMPRESSION: 1. There is no evidence of hemorrhage, mass effect, or acute territorial ischemia noting angiographic phase technique. 2. The left vertebral artery is dominant and widely patent. 3. The right vertebral artery is diminutive. 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 This is of indeterminate chronicity. 4. Otherwise unremarkable CT angiogram examinations of the head and neck. 5. Endotracheal and enteric tubes have been placed. ACT 112: Negative or not required by law. Electronically signed by: Russel Bocanegra M.D. 03/18/2023 12:13 PM Neck CTA 03/18/23 11:25 CT ANGIOGRAM OF THE BRAIN; CT ANGIOGRAM OF THE NECK CLINICAL HISTORY: Change in mental status. Headache. Seizure. Neurological deficit. COMPARISON STUDY: CT of the brain performed concurrently on 03/18/2023. TECHNIQUE: Following the IV administration of 115 of Optiray 320, CT angiogram of the head and neck was performed from the aortic arch to the vertex. Images are reviewed in the axial, sagittal, and coronal planes. 3-D MIPS images are created and assessed. IV contrast was administered without complication. All measurements were calculated based on NASCET criteria. A dose lowering technique was utilized adhering to the principles of ALARA. The examinations are degraded by motion artifact. CT DOSE: 5214.93 mGy.cm FINDINGS: Brain parenchyma: There is age-related involutional change noting mild to moderate subcortical and periventricular microangiopathic disease. There is no evidence of hemorrhage, mass effect, or acute territorial ischemia no definite angiographic phase technique. There is no evidence of enhancing mass lesion on the angiogram phase images. The ventricles, sulci, and cisterns are prominent secondary to involutional change. Simmons-white matter differentiation is preserved. No extra-axial fluid collection is seen. Thoracic aorta: There is atherosclerotic calcification of the thoracic aorta. Visualized portions of the thoracic aorta are normal in caliber. The aortic arch demonstrates standard 3-vessel anatomy. Right carotid arterial system: The right common carotid artery is widely patent, as are the right internal and external carotid arteries. Calcified plaque is seen in the carotid bulb. Left carotid arterial system: The left common carotid artery is widely patent, as are the left internal and external carotid arteries. Calcified plaque is noted in the carotid bulb. Vertebral arteries: The left vertebral artery is dominant and widely patent. The right vertebral artery is diminutive. There is high-grade stenosis at the origin of the right vertebral artery seen on axial image #86. 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 Subclavian arteries: Widely patent bilaterally. Intracranial vasculature: The internal carotid arteries are patent at the skull base, as are the anterior and middle cerebral arteries bilaterally. The left vertebral artery and basilar artery are patent. 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 The left vertebral artery is dominant. There is origin of the left po sterior cerebral artery. There is no aneurysm, high-grade stenosis, or focal vessel cut off seen throughout the intracranial circulation. Jugular veins: Patent bilaterally. Dural sinuses: Patent. Lung apices: An endotracheal tube is in place. This terminates above the christiano. There is a left upper lobe calcified granuloma. Dependent atelectasis is seen in both lungs. Soft tissues: An enteric tube is in place. The visualized pharyngeal soft tissues are normal in appearance noting angiographic phase technique. The oropharyngeal airway appears widely patent. The salivary and thyroid glands are normal in appearance. No cervical lymphadenopathy is seen. Skeletal structures: The skeletal structures are osteopenic. There is postsurgical change from left-sided craniotomy. No destructive calvarial lesion is seen. The cervical spine is maintained noting advanced multilevel spondylosis. No lytic or blastic lesion is seen. Orbits: The bony orbits are intact. Orbital contents are normal as visualized noting bilateral ocular lens implants. Sinuses and mastoids: The paranasal sinuses are clear. There is trace right mastoid effusion. The left mastoid air cells are well pneumatized. IMPRESSION: 1. There is no evidence of hemorrhage, mass effect, or acute territorial ischemia noting angiographic phase technique. 2. The left vertebral artery is dominant and widely patent. 3. The right vertebral artery is diminutive. 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 This is of indeterminate chronicity. 4. Otherwise unremarkable CT angiogram examinations of the head and neck. 5. Endotracheal and enteric tubes have been placed. ACT 112: Negative or not required by law. Electronically signed by: Russel Bocanegra M.D. 03/18/2023 12:13 PM Abdomen/Pelvis CT 03/18/23 11:30 CT SCAN OF THE ABDOMEN AND PELVIS WITH IV CONTRAST CLINICAL HISTORY: Seizure. Change in mental status. COMPARISON STUDY: Abdominal CT dated 09/08/2007. TECHNIQUE: Following the IV administration of 115 cc of Optiray 320, CT scan of the abdomen and pelvis is performed from the lung bases to the proximal femora. Images are reviewed in the axial, sagittal, and coronal planes. IV contrast was administered without complication. A dose lowering technique was utilized adhering to the principles of ALARA. The examination is degraded by motion artifact, as well as by streak artifact from the arms which could not be elevated above the abdomen. FINDINGS: Lung bases: The heart is enlarged and without pericardial effusion. The coronary arteries are densely calcified. There are trace pleural effusions with dependent consolidation. Liver: Evaluation of the liver is degraded by streak artifact. The contrast- enhanced liver is normal in size, contour, and attenuation. There is no intrahepatic biliary ductal dilatation. The hepatic veins and portal veins are patent. Gallbladder: Unremarkable. Spleen: Normal in size and attenuation. Pancreas: Unremarkable. Adrenal glands: Unremarkable. Kidneys: The contrast enhanced kidneys demonstrate mild cortical atrophy and are without hydronephrosis. The kidneys enhance symmetrically. A 6.3 cm exophytic cyst arises from the right upper pole. A 12 mm cortical hypodensity in the left lower pole seen on image #255 likely represents a cyst but cannot be definitively characterized due to streak and motion artifact. Abdominal vasculature: The abdominal aorta is normal in course and caliber noting advanced atherosclerotic calcification. 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 Stomach and bowel: A small hiatal hernia is noted. An enteric tube terminates below the diaphragm in the gastric fundus. There is mild to moderate colonic diverticulosis without CT evidence of acute diverticulitis. No bowel obstruction is seen. Aysp-ap-doymkrah fecal retention is seen throughout the colon. The appendix is normal as visualized. Peritoneum: There is no intraperitoneal free air or abdominal ascites. There is a fat-containing umbilical hernia. Lymphadenopathy: None. Pelvic viscera: The prostate gland is mildly enlarged and heterogeneous. The bladder is decompressed, and the wall appears thickened/trabeculated indicating chronic outlet obstruction. Skeletal structures: The skeletal structures are osteopenic. There is moderate lumbosacral spondylosis an scoliosis. No lytic or blastic lesions are seen. IMPRESSION: 1. Streak and motion compromised examination. 2. No acute infectious or inflammatory findings are identified in the abdomen or pelvis. 3. Trace pleural effusions with dependent consolidation. 4. Cardiomegaly. 5. Colonic diverticulosis without CT evidence of acute diverticulitis. 6. Additional findings as above. ACT 112: Negative or not required by law. Electronically signed by: Russel Bocanegra M.D. 03/18/2023 12:22 PM Discharge Plan Visit Data Chief Complaint: Weakness ED Provider: Shaun Cunha Discharge Problem: Altered mental status, Headache, Generalized tonic-clonic seizure, New onset seizure, Metabolic acidosis, Acute hyperglycemia, Leukocytosis Patient Disposition: Being Evaluated by Hospitalist Forms Stand Alone Forms: My [facility] Prescriptions Prescriptions: No Action insulin NPH isoph U-100 human 100 unit/mL suspension 44 unit SUBCUT BID Qty: 30 5RF metoprolol succinate 50 mg tablet extended release 24 hr 50 mg PO BID Qty: 180 3RF Hold Instructions: Home Medication placed on hold at Doctor's office cetirizine 10 mg tablet 10 mg PO DAILY PRN (Reason: allergy symptoms) Qty: 30 3RF atorvastatin 80 mg tablet 80 mg PO DAILY lisinopril 40 mg tablet 40 mg PO DAILY glyburide 5 mg tablet 10 mg PO BID aspirin [Adult Aspirin Regimen] 81 mg tablet,delayed release (DR/EC) 81 mg PO DAILY nitroglycerin 0.4 mg tablet, sublingual 0.4 mg SL .COMPLEX Patient Comments: 0.4 mg SL EVERY 5 MINUTES FOR UP TO 3 DOSES NEEDED FOR CHEST PAIN. CALL 911 IF PAIN PERSISTS; Rx Instructions: 0.4 mg SL EVERY 5 MINUTES FOR UP TO 3 DOSES NEEDED FOR CHEST PAIN. CALL 911 IF PAIN PERSISTS; albuterol sulfate 90 mcg/actuation HFA aerosol inhaler 2 puff inhalation Q6H PRN (Reason: Shortness Of Breath Or Wheezing) Qty: 18 3RF (DME) Flutter Valve Device See Rx Instructions .ROUTE .MEDSUPPLY Qty: 1 0RF Rx Instructions: Use it every 6 hours when awake. furosemide 40 mg tablet 40 mg PO DAILY PRN (Reason: shortness of breath) Qty: 30 6RF spironolactone 25 mg tablet 25 mg PO DAILY Qty: 90 1RF Referrals Referrals: Twan Odell MD [Primary Care Provider] -
--- NOTE | 2023-03-18 11:03 | XRay Report ---
SINGLE VIEW CHEST CLINICAL HISTORY: Neurological deficit. Stroke like symptoms. FINDINGS: An AP, portable, supine chest radiograph is compared to study dated 01/31/2022. The examinat ion is degraded by portable technique and apical lordotic positioning. An endotracheal tube has been placed. The tip projects over the right mainstem bronchus. The heart is enlarged noting atherosclerot ic calcification of the thoracic aorta. There is pulmonary vascular congestion. Small pleural effusio ns are suspected. There is elevation of the right hemidiaphragm and bibasilar atelectasis. No pneumot horax is seen. The skeletal structures are osteopenic. The bony thorax is grossly intact. IMPRESSION: 1. An endotracheal tube has been placed. The tip projects over the mainstem bronchus, and less has be en pulled back on a subsequent examination. 2. Cardiomegaly with evidence of congestive failure. 3. Suspect pleural effusions ACT 112: Negative or not required by law. Electronically signed by: Russel Bocanegra M.D. 03/18/2023 11:00 AM
--- NOTE | 2023-03-18 11:08 | CT Scan Report ---
CT SCAN OF THE BRAIN WITHOUT IV CONTRAST CLINICAL HISTORY: Neurological deficit. Stroke like symptoms. COMPARISON STUDY: CT of the brain dated 06/19/2009. TECHNIQUE: Unenhanced axial CT scan of the brain is performed from the vertex to the skull base. A do se lowering technique was utilized adhering to the principles of ALARA. The skull base was scanned tw ice due to motion artifact. 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 There is no hemorrhage, mass effect, or evidence of acute ter ritorial ischemia by CT criteria. Simmons-white matter differentiation is preserved. No extra-axial flui d collection is seen. Ventricles, sulci, cisterns: Prominent secondary to involutional change. Intracranial vasculature: There is atherosclerotic calcification of the cavernous carotid and vertebr al arteries. Calvarium: There is postsurgical change from left-sided craniotomy. No destructive calvarial lesion i s seen. Sinuses and mastoids: The paranasal sinuses are clear. The mastoid air cells are well pneumatized. Orbits: The bony orbits are grossly intact. There are bilateral ocular lens implants. IMPRESSION: There is no hemorrhage, mass effect, or evidence of acute territorial ischemia by CT alexandro baron. ACT 112: Negative or not required by law. Electronically signed by: Russel Bocanegra M.D. 03/18/2023 11:06 AM
[2023-03-18 11:16] LABS: Alanine Aminotransferase 20 U/L (7-52); Albumin Globulin Ratio 1.2 (0.9-2); Albumin Level 4.2 gm/dl (3.4-5.0); Alkaline Phosphatase 68 U/L (34-104); Anion Gap 23 (3-11); Aspartate Aminotransferase 24 U/L (13-39); BUN Creatinine Ratio 14.3 (10-20); Bilirubin,Total 0.5 mg/dl (0.2-1.0); Blood Urea Nitrogen 18 mg/dl (6-23); Calcium 9.3 mg/dl (8.6-10.3); Carbon Dioxide 11 mmol/L (21-32); Chloride 102 mmol/L (98-107); Est GFR (African American) 59.9 ml/min; Est GFR (Non-African American) 51.7 ml/min; Globulin 3.4 gm/dl (2.5-4.0); Glucose 329 mg/dl (70-99(Fasting)); Potassium 4.6 mmol/L (3.5-5.1); Sodium 136 mmol/L (136-145); Total Protein 7.6 gm/dl (6.0-8.3); Troponin I High Sensitivity 25.8 pg/ml (0-20)
[2023-03-18 11:26] LABS: Partial Thromboplastin Ratio 1.1; Partial Thromboplastin Time 29.7 Seconds (21.0-31.0)
[2023-03-18 11:29] LABS: iSTAT Arterial Blood Gas HCO3 18 meg/L (19-24); iSTAT Arterial Blood Gas pCO2 42 mmHg (35-46); iSTAT Arterial Blood Gas pH 7.23 (7.35-7.45); iSTAT Arterial Blood Gas pO2 88 mmHg (80-95); iSTAT Carbon Dioxide 19 mmol/L (24-31); iSTAT Hematocrit 44 % (42-52); iSTAT Potassium 5.6 mmol/L (3.3-5.0); iSTAT Sodium 135 mmol/L (135-144)
[2023-03-18 11:49] LABS: ALC (manual) 7.22 K/uL (1.2-3.4); ANC (manual) 7.06 K/uL (1.4-6.5); Basophils # (manual) 0.48 K/uL (0-0.2); Basophils % (manual) 3 %; Eosinophils # (manual) 0.48 K/uL (0-0.50); Eosinophils % (manual) 3 %; Large Granular Lymph # (manua 6.26 K/uL; Large Granular Lymph % (manual) 39 %; Lymphocytes # (manual) 0.96 K/uL (1.2-3.4); Lymphocytes % (manual) 6 %; Monocytes % (manual) 5 %; Neutrophils # (manual) 7.06 K/uL (1.40-6.50); Neutrophils % (manual) 44 %
[2023-03-18] MEDS ORDERED: SODIUM CHLORIDE 0.9% 1000ML 2,000 ML IV ONE (11:49)
[2023-03-18] MEDS ORDERED: OPTIRAY 320 500ml IV ONE (11:54)
[2023-03-18] MEDS ORDERED: SODIUM BICARB 8.4% INJ 50 MEQ/50 ML SYR IV STA (11:54)
[2023-03-18] MEDS: propofoL 1,000 MG/100 ML VIAL IV SCH ×3 (12:03→20:14)
[2023-03-18] MEDS ORDERED: CEFEPIME 2,000 MG/20 ML VIAL IV STA (12:14)
--- NOTE | 2023-03-18 12:14 | CT Scan Report ---
CT ANGIOGRAM OF THE BRAIN; CT ANGIOGRAM OF THE NECK CLINICAL HISTORY: Change in mental status. Headache. Seizure. Neurological deficit. COMPARISON STUDY: CT of the brain performed concurrently on 03/18/2023. TECHNIQUE: Following the IV administration of 115 of Optiray 320, CT angiogram of the head and neck w as performed from the aortic arch to the vertex. Images are reviewed in the axial, sagittal, and nash nal planes. 3-D MIPS images are created and assessed. IV contrast was administered without complicati on. All measurements were calculated based on NASCET criteria. A dose lowering technique was utilize d adhering to the principles of ALARA. The examinations are degraded by motion artifact. 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 There is no evidence of hemorrhage, mass effect, or acute ter ritorial ischemia no definite angiographic phase technique. There is no evidence of enhancing mass le lilliam on the angiogram phase images. The ventricles, sulci, and cisterns are prominent secondary to in volutional change. Simmons-white matter differentiation is preserved. No extra-axial fluid collection is seen. Thoracic aorta: There is atherosclerotic calcification of the thoracic aorta. Visualized portions of the thoracic aorta are normal in caliber. The aortic arch demonstrates standard 3-vessel anatomy. Right carotid arterial system: The right common carotid artery is widely patent, as are the right int ernal and external carotid arteries. Calcified plaque is seen in the carotid bulb. Left carotid arterial system: The left common carotid artery is widely patent, as are the left planner intern al and external carotid arteries. Calcified plaque is noted in the carotid bulb. Vertebral arteries: The left vertebral artery is dominant and widely patent. The right vertebral boogie ry is diminutive. There is high-grade stenosis at the origin of the right vertebral artery seen on ax ial image #86. 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 Subclavian arteries: Widely patent bilaterally. Intracranial vasculature: The internal carotid arteries are patent at the skull base, as are the ante rior and middle cerebral arteries bilaterally. The left vertebral artery and basilar artery are paten t. 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 The left vertebral artery is dominant. There is origin of the left posterior cerebr al artery. There is no aneurysm, high-grade stenosis, or focal vessel cut off seen throughout the int racranial circulation. Jugular veins: Patent bilaterally. Dural sinuses: Patent. Lung apices: An endotracheal tube is in place. This terminates above the christiano. There is a left uppe r lobe calcified granuloma. Dependent atelectasis is seen in both lungs. Soft tissues: An enteric tube is in place. The visualized pharyngeal soft tissues are normal in appea kalyan noting angiographic phase technique. The oropharyngeal airway appears widely patent. The saliva ry and thyroid glands are normal in appearance. No cervical lymphadenopathy is seen. Skeletal structures: The skeletal structures are osteopenic. There is postsurgical change from left-s ided craniotomy. No destructive calvarial lesion is seen. The cervical spine is maintained noting adv anced multilevel spondylosis. No lytic or blastic lesion is seen. Orbits: The bony orbits are intact. Orbital contents are normal as visualized noting bilateral ocular lens implants. Sinuses and mastoids: The paranasal sinuses are clear. There is trace right mastoid effusion. The lef t mastoid air cells are well pneumatized. IMPRESSION: 1. There is no evidence of hemorrhage, mass effect, or acute territorial ischemia noting angiographic phase technique. 2. The left vertebral artery is dominant and widely patent. 3. The right vertebral artery is diminutive. 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 This is of indeterminate chronicity. 4. Otherwise unremarkable CT angiogram examinations of the head and neck. 5. Endotracheal and enteric tubes have been placed. ACT 112: Negative or not required by law. Electronically signed by: Russel Bocanegra M.D. 03/18/2023 12:13 PM
[2023-03-18] MEDS ORDERED: SODIUM CHLORIDE 0.9% 1000ML 1,000 ML IV ONE ×2 (12:15→17:19)
[2023-03-18] MEDS: PROPOFOL BOLUS FROM BAG IV PRN ×4 (12:17→14:12)
--- NOTE | 2023-03-18 12:24 | CT Scan Report ---
CT SCAN OF THE ABDOMEN AND PELVIS WITH IV CONTRAST CLINICAL HISTORY: Seizure. Change in mental status. COMPARISON STUDY: Abdominal CT dated 09/08/2007. TECHNIQUE: Following the IV administration of 115 cc of Optiray 320, CT scan of the abdomen and pelv is is performed from the lung bases to the proximal femora. Images are reviewed in the axial, sagitta l, and coronal planes. IV contrast was administered without complication. A dose lowering technique w as utilized adhering to the principles of ALARA. The examination is degraded by motion artifact, as w ell as by streak artifact from the arms which could not be elevated above the abdomen. FINDINGS: Lung bases: The heart is enlarged and without pericardial effusion. The coronary arteries are densely calcified. There are trace pleural effusions with dependent consolidation. Liver: Evaluation of the liver is degraded by streak artifact. The contrast-enhanced liver is normal in size, contour, and attenuation. There is no intrahepatic biliary ductal dilatation. The hepatic ve ins and portal veins are patent. Gallbladder: Unremarkable. Spleen: Normal in size and attenuation. Pancreas: Unremarkable. Adrenal glands: Unremarkable. Kidneys: The contrast enhanced kidneys demonstrate mild cortical atrophy and are without hydronephros is. The kidneys enhance symmetrically. A 6.3 cm exophytic cyst arises from the right upper pole. A 12 mm cortical hypodensity in the left lower pole seen on image #255 likely represents a cyst but canno t be definitively characterized due to streak and motion artifact. Abdominal vasculature: The abdominal aorta is normal in course and caliber noting advanced atheroscle rotic calcification. 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 Stomach and bowel: A small hiatal hernia is noted. An enteric tube terminates below the diaphragm in the gastric fundus. There is mild to moderate colonic diverticulosis without CT evidence of acute div erticulitis. No bowel obstruction is seen. [id number] fecal retention is seen throughout the co juan david. The appendix is normal as visualized. Peritoneum: There is no intraperitoneal free air or abdominal ascites. There is a fat-containing umbi lical hernia. Lymphadenopathy: None. Pelvic viscera: The prostate gland is mildly enlarged and heterogeneous. The bladder is decompressed, and the wall appears thickened/trabeculated indicating chronic outlet obstruction. Skeletal structures: The skeletal structures are osteopenic. There is moderate lumbosacral spondylosi s an scoliosis. No lytic or blastic lesions are seen. IMPRESSION: 1. Streak and motion compromised examination. 2. No acute infectious or inflammatory findings are identified in the abdomen or pelvis. 3. Trace pleural effusions with dependent consolidation. 4. Cardiomegaly. 5. Colonic diverticulosis without CT evidence of acute diverticulitis. 6. Additional findings as above. ACT 112: Negative or not required by law. Electronically signed by: Russel Bocanegra M.D. 03/18/2023 12:22 PM
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
--- NOTE | 2023-03-18 14:25 | Urology Consultation ---
Date of Consultation March 18, 2023 Assessment & Plan (1) Meatal stenosis: Plan 87-year-old male who presented with headache and weakness and developed seizures. Currently intubated and on his way to the ICU. Nursing was unable to place a Mccrary catheter. 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 Patient was prepped and draped in a sterile fashion. As he was sedated, I gently dilated his pinpoint meatus with hemostats. The area opened nicely. I was able to place a 16 Frisian Mccrary catheter without difficulty with return of clear yellow urine. Balloon was inflated with 10 cc of sterile water and set to gravity drainage. Do not remove Mccrary catheter. Would recommend maintaining for at least 10 to 14 days. Void trial can be attempted if patient improves clinically around this time or if he is discharged prior to that can set up follow-up in urology clinic CT scan reviewed and no concerning urologic findings Urology to sign off. Please notify us near his discharge date and we can set up appropriate follow-up if necessary. History of Present Illness History of Present Illness 87-year-old male who presented to the hospital with headache and weakness and t hen subsequently developed seizures. He was intubated in the emergency department and admitted to the ICU. They were unable to place a catheter at the bedside. History from family reports that he is only had a catheter previously when having brain surgery and had not previously seen urologist. They did report that he had recent difficulty urinating. Reviewed labs which showed a leukocytosis of 16.04, hemoglobin of 16.5, creatinine of 1.26, lactate of 10.9 with a repeat of 5.1. Independently reviewed a CT scan of the abdomen pelvis which did not show any abnormalities of the kidneys. There is no hydronephrosis no obvious obstructing stone. The bladder was decompressed with a thick wall. Allergies Allergy/AdvReac Type Severity Reaction Status Date / Time aspirin AdvReac Severe fell=subdural=wouldn't Verified 02/06/23 15:07 stop bleeding -BUT CURRENTLY TAKES IT metformin AdvReac Intermediate diarrhea Verified 02/06/23 15:07 Home Medications Medication Instructions Recorded Confirmed Type aspirin 81 mg tablet,delayed 81 mg PO DAILY 06/28/19 03/18/23 History release (Adult Aspirin Regimen) atorvastatin 80 mg tablet 80 mg PO DAILY 06/28/19 03/18/23 History glyburide 5 mg tablet 10 mg PO BID 06/28/19 03/18/23 History lisinopril 40 mg tablet 40 mg PO DAILY 06/28/19 03/18/23 History nitroglycerin 0.4 mg sublingual 0.4 mg sublingual .COMPLEX 06/28/19 03/18/23 History tablet spironolactone 25 mg tablet 25 mg PO DAILY #90 tabs 12/06/20 03/18/23 Rx insulin NPH isoph U-100 human 100 44 unit (0.44 mL) subcut BID #30 mL 01/03/21 03/18/23 Rx unit/mL subcutaneous suspension metoprolol succinate 50 mg 50 mg PO BID #180 tabs 10/01/21 03/18/23 Rx tablet,extended release 24 hr Flutter Valve #1 ea 01/21/22 02/06/23 Rx albuterol sulfate 90 mcg/actuation 2 puff inhalation Q6H PRN 01/21/22 03/18/23 Rx aerosol inhaler Shortness Of Breath Or Wheezing #18 grams cetirizine 10 mg tablet 10 mg PO DAILY PRN allergy 07/08/22 03/18/23 Rx symptoms #30 tabs furosemide 40 mg tablet 40 mg PO DAILY PRN shortness of 08/08/22 03/18/23 Rx breath #30 tabs cholecalciferol (vitamin D3) 25 25 mcg PO DAILY 03/18/23 03/18/23 History mcg (1,000 unit) capsule clopidogrel 75 mg tablet (Plavix) 75 mg PO DAILY 03/18/23 03/18/23 History empagliflozin 10 mg tablet 10 mg PO DAILY 03/18/23 03/18/23 History (Jardiance) montelukast 10 mg tablet 10 mg PO HS 03/18/23 03/18/23 History Patient History Medical History CAD (coronary artery disease) Diabetes mellitus type 2, uncontrolled Hypertension Hypomagnesemia Hypoxia Sleep apnea in adult Surgical History History of brain surgery Family History Other Myocardial infarction No significant family history Denies family history of Ovarian cancer Prostate cancer Breast cancer Colorectal cancer Social History Smoking Status: Unknown if ever smoked Second Hand Exposure: No; Do You Dip or Chew Tobacco: No; Hx Alcohol Use: No Hx Substance Use: No Preferred Language: [place] Communication Ability: Effective Pail Bailer Required: No Beliefs That Will Affect Care: None marital status: Current Living Situation: Spouse current occupational status: employed 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 Small pinpoint opening. Extremities: Moves all 4 spontaneously Neuro: No gross deficits Skin: Warm, dry, no rashes noted Results & Data Vital Signs (Past 12 Hours) Vital Signs Temp Pulse Pulse Resp BP BP Pulse Ox 03/18/23 14:15 79 27 H 96 03/18/23 14:15 129/78 03/18/23 14:01 107/66 03/18/23 14:01 95 H 31 H 96 03/18/23 14:00 99 H 31 H 95 03/18/23 13:45 97 H 25 H 96 03/18/23 13:31 104/70 03/18/23 13:31 103 H 30 H 95 03/18/23 13:30 89 24 94 03/18/23 13:21 119/73 03/18/23 13:21 103 H 30 H 94 03/18/23 13:20 94 H 24 96 03/18/23 13:16 108/58 L 03/18/23 13:16 91 H 26 H 95 03/18/23 13:11 105/62 03/18/23 13:11 99 H 29 H 95 03/18/23 13:10 93 H 23 95 03/18/23 13:06 99/71 L 03/18/23 13:06 98 H 26 H 95 03/18/23 13:00 91 H 28 H 95 03/18/23 13:00 100/59 L 05 12:56 82/61 L 03/18/23 12:56 98 H 28 H 95 03/18/23 12:51 117/67 05 12:51 92 H 25 H 95 03/18/23 12:50 104 H 29 H 96 03/18/23 12:46 133/96 03/18/23 12:46 105 H 26 H 96 03/18/23 12:41 94 H 28 H 95 03/18/23 12:41 95/61 L 03/18/23 12:40 99 H 27 H 96 03/18/23 12:36 114/80 03/18/23 12:36 91 H 32 H 95 03/18/23 12:31 122/68 03/18/23 12:31 95 H 27 H 97 03/18/23 12:30 99 H 29 H 94 03/18/23 12:26 121/78 03/18/23 12:26 96 H 27 H 95 03/18/23 12:21 143/106 H 03/18/23 12:21 115 H 34 H 91 03/18/23 12:20 100 H 27 H 95 03/18/23 12:16 132/82 05 12:16 100 H 27 H 96 03/18/23 12:11 135/72 03/18/23 12:11 97 H 31 H 96 03/18/23 12:10 97 H 34 H 97 03/18/23 12:09 141/113 H 03/18/23 12:09 94 H 29 H 97 03/18/23 12:01 149/85 H 03/18/23 12:01 98 H 21 97 03/18/23 12:00 97 H 28 H 97 03/18/23 11:59 166/82 H 03/18/23 11:59 94 H 23 97 03/18/23 11:57 26 H 96 03/18/23 11:57 148/87 H 03/18/23 11:54 25 H 93 05 11:30 97 H 29 H 94 03/18/23 11:30 95/48 L 03/18/23 11:25 93/47 L 05 11:25 99 H 34 H 93 05 11:20 100/48 L 05/02/23 12:50 88 23 133/96 96 03/18/23 12:34 95 H 28 H 122/68 96 03/18/23 11:20 96 H 24 92 03/18/23 11:10 100 H 28 H 91 03/18/23 11:05 106/55 L 03/18/23 11:04 98 H 35 H 93 03/18/23 11:00 103 H 34 H 93 03/18/23 11:00 102/56 L 03/18/23 10:57 100/64 03/18/23 10:57 94 03/18/23 10:56 93 03/18/23 10:40 153 H 17 03/18/23 10:31 110 H 37 H 94 03/18/23 10:31 119/67 03/18/23 10:30 112 H 33 H 93 03/18/23 10:24 109 H 34 H 93 03/18/23 10:23 153/81 H 03/18/23 12:27 95 H 31 H 121/78 96 03/18/23 12:21 104 H 27 H 143/106 H 95 03/18/23 10:23 108 H 22 153/81 H 93 03/18/23 10:26 111 H 22 143/83 H 93 03/18/23 10:31 112 H 22 112/35 L 94 03/18/23 10:57 99 H 18 100/64 93 03/18/23 11:11 100 H 22 98/52 L 92 03/18/23 11:18 96 H 32 H 98/52 L 93 03/18/23 10:12 37.9 C H 115 H 22 197/92 H 97 03/18/23 11:13 116 H 34 H 94 03/18/23 10:26 113 H O2 Del Method FiO2 03/18/23 14:15 03/18/23 14:15 03/18/23 14:01 03/18/23 14:01 03/18/23 14:00 03/18/23 13:45 03/18/23 13:31 03/18/23 13:31 03/18/23 13:30 03/18/23 13:21 03/18/23 13:21 03/18/23 13:20 03/18/23 13:16 03/18/23 13:16 03/18/23 13:11 03/18/23 13:11 03/18/23 13:10 03/18/23 13:06 03/18/23 13:06 03/18/23 13:00 03/18/23 13:00 03/18/23 12:56 03/18/23 12:56 03/18/23 12:51 03/18/23 12:51 03/18/23 12:50 03/18/23 12:46 03/18/23 12:46 03/18/23 12:41 03/18/23 12:41 03/18/23 12:40 03/18/23 12:36 03/18/23 12:36 03/18/23 12:31 03/18/23 12:31 03/18/23 12:30 03/18/23 12:26 03/18/23 12:26 03/18/23 12:21 03/18/23 12:21 03/18/23 12:20 03/18/23 12:16 03/18/23 12:16 03/18/23 12:11 03/18/23 12:11 03/18/23 12:10 03/18/23 12:09 03/18/23 12:09 03/18/23 12:01 03/18/23 12:01 03/18/23 12:00 03/18/23 11:59 03/18/23 11:59 03/18/23 11:57 03/18/23 11:57 03/18/23 11:54 03/18/23 11:30 03/18/23 11:30 03/18/23 11:25 03/18/23 11:25 03/18/23 11:20 03/18/23 12:50 Mechanical Vent 03/18/23 12:34 Room Air 03/18/23 11:20 03/18/23 11:10 03/18/23 11:05 03/18/23 11:04 03/18/23 11:00 03/18/23 11:00 03/18/23 10:57 03/18/23 10:57 03/18/23 10:56 03/18/23 10:40 03/18/23 10:31 03/18/23 10:31 03/18/23 10:30 03/18/23 10:24 03/18/23 10:23 03/18/23 12:27 Mechanical Vent 03/18/23 12:21 Mechanical Vent 03/18/23 10:23 Mechanical Vent 03/18/23 10:26 Mechanical Vent 03/18/23 10:31 Mechanical Vent 03/18/23 10:57 Mechanical Vent 03/18/23 11:11 Mechanical Vent 03/18/23 11:18 Mechanical Vent 03/18/23 10:12 03/18/23 11:13 50 03/18/23 10:26 PG Care Time/CCT Total # of Minutes Spent Total Time Spent with Patient: Total time spent is greater than 50% in coordination of care (as documented) at patient's floor/unit and/or counseling patient: Coding Level of Care Code 97490 INT INP/OBS CARE 2MIN Diagnoses Meatal stenosis
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
[2023-03-18] MEDS ORDERED: fentaNYL citrate PF 100 MCG/2 ML VIAL ONE (14:47)
[2023-03-18] MEDS ORDERED: ETOMIDATE 2 MG/ML 20 ML VIAL IV ONE (14:50)
--- NOTE | 2023-03-18 15:24 | Procedure Note ---
Procedure Note Date of Service March 18, 2023 Note Lumbar Puncture Procedure Note INDICATION: Headache, seizure. Evaluation for SAH Date of procedure: 03/18/2023 PROCEDURE SHUTTLE FIXER: Dr. Manrique STAFF PRESENT: Nursing staff, carpenter wooden tank erecting Dr. Rojas CONSENT: Informed consent was obtained by carpenter wooden tank erecting provider from patient's prior to procedure. Patient is sedated and intubated and unable to give consent due to ETT with sedation. Benefits of procedure including ability to identify occult subarachnoid bleed were reviewed. Risks including, and risks (backache, pain, headache), uncommon risks (persistent headache), and severe risks including bleeding, lower limb weakness, nerve injury with prolonged sensory or strength deficits, visual changes, and infection, and exceptionally rare risks including brain herniation and were reviewed. Alternative treatments and techniques including CT were discussed. Patient surrogate expressed understanding of the risk/benefits, that patient was at an increased risk of bleeding complications from due to dual antiplatelet therapy, and consents to procedure. PROCEDURE SUMMARY: LP was performed in ICU with carpenter wooden tank erecting provider Dr. Eisenberg present. Patient was placed in the right lateral decubitus position. The L4-L5 lumbar space was identified using the iliac crest and palpation. No overlying erythema/warmth/tenderness, infection, or ulceration was present overlying skin. Area was cleansed using ChloraPrep, Sterile gloves were donned with usual technique and used throughout the procedure, and area was draped in the usual fashion. Local anesthesia was obtained using 1% lidocaine. A needle was advanced and wheal was raised after withdrawing to ensure no blood return, needle was then advanced along the L4-L5 space at the midline, negative pressure applied to ensure no bloody return, and then anesthesia was applied along the track while withdrawing the needle. A 20-gauge 3.5 inch spinal needle was then placed in the L4-L5 interspace, angled 45 degrees cephalad, and advanced. After approximately 3 inches of advancement bony resistance was appreciated, needle was withdrawn 1 time, redirected without complete removal from the skin, and advanced. Firm pop was not appreciated, however a slight decrease in resistance was noted stylette was removed with scant blood-tinged return followed by clear spinal fluid. Opening pressure was not measured; however CSF return was slow but steady approximately 1 drop every 3 seconds. CSF was collected sequentially to 4 tubes, ~8cc total. stylette was then readvanced, and the needle was withdrawn from the L4-L5 place, pressure was held overlying needle access site with a piece of gauze for 60 seconds and then a Band-Aid was applied. Blood loss was less than 1 cc, no complications were experienced during the procedure and patient tolerated the procedure well. Total procedure time 35 minutes. Complications: None EBL: Less than 1cc Coding
[2023-03-18] MEDS ORDERED: VANCOMYCIN HCL 2,000 MG in SODIUM CHLORIDE 0.9% 500 ML IV SCH (15:26)
[2023-03-18] MEDS ORDERED: VANCOMYCIN CONSULT ACTIVE PRN (15:26)
[2023-03-18] MEDS ORDERED: fentaNYL citrate PF 100 MCG/2 ML VIAL IV STA (15:29)
[2023-03-18 15:57] LABS: Total Protein CSF 58.3 mg/dl (15-45)
[2023-03-18 15:59] LABS: Appearance CSF Clear; CSF Count Tube # 3; Color CSF Colorless
[2023-03-18] MEDS ORDERED: VANCOMYCIN HCL 2,750 MG in SODIUM CHLORIDE 0.9% 500 ML IV ONE (16:00)
[2023-03-18 16:01] LABS: CSF Xanthrochromic No xanthochromia; Red Blood Cell CSF Auto 8 /uL (0-)
[2023-03-18 16:02] LABS: White Blood Cell CSF Auto 2 /uL (0-5)
[2023-03-18] MEDS ORDERED: PNEUMOCOCCAL POLYSACCHARIDES 25 MCG/0.5 ML VIAL/SYR IM ONE (16:11)
--- NOTE | 2023-03-18 16:35 | Pharmacy Report ---
Pharmacy PK ABX Note - Date of Service March 18, 2023 - Assessment and Plan Assessment 87 year old M receiving CEFEPIME/VANCOMYCIN for treatment of EMPIRIC ANTIBIOTIC THERAPY. Patient presented with headache/seizure/altered mental status with findings of hypotension, elevated temperature of 37.9C, and leukocytosis. Pertinent microbiologic data includes: blood cultures pending and CSF cultures pending. Day # 1/? of antimicrobial therapy. Plan Vancomycin * Loading dose: 2750 mg IV x 1 * Maintenance dose: 1250 mg IV every 18 hours * Regimen is predicted to achieve target AUC/ZAIRA of 400-600 mg/L.hr * Vancomyin level to be ordered if continued beyond 48 hours Pharmacy will continue to follow and will adjust dose/frequency as necessary. Thank you. Pharmacy has transitioned to AUC monitoring for vancomycin. AUC/ZAIRA is the preferred PK/PD target and is associated with decreased risk of nephrotoxicity compared to traditional trough targets.
[2023-03-18 17:07] LABS: Cryptococcus neoformans/ga PCR Not Detected (NotDetected); Cytomegalovirus PCR Not Detected (NotDetected); Enterovirus PCR Not Detected (NotDetected); Escherichia coli K1 PCR Not Detected (NotDetected); Haemophilius influenzae PCR Not Detected (NotDetected); Herpes Simplex Virus 1 PCR Not Detected (NotDetected); Herpes Simplex Virus 2 PCR Not Detected (NotDetected); Human Herpes Virus 6 PCR Not Detected (NotDetected); Human Parechovirus PCR Not Detected (NotDetected); Listeria monocytogenes PCR Not Detected (NotDetected); Neisseria meningitidis PCR Not Detected (NotDetected); Streptococcus agalactiae PCR Not Detected (NotDetected); Streptococcus pneumoniae PCR Not Detected (NotDetected); Varicella Zoster Virus PCR Not Detected (NotDetected)
[2023-03-18] MEDS ORDERED: DEXTROSE 50% 50 ML SYRINGE IV PRN (17:25)
[2023-03-18] MEDS ORDERED: GLUCOSE 40% GEL 15 GM TUBE PO PRN (17:25)
[2023-03-18] MEDS ORDERED: GLUCOSE 10 TAB/TUBE PO PRN (17:25)
[2023-03-18] MEDS ORDERED: GLUCAGON FOR INJ 1 MG VIAL SQ PRN (17:25)
[2023-03-18] MEDS ORDERED: CARBOHYDRATES FOR HYPOGLYCEMIA PO PRN (17:25)
--- NOTE | 2023-03-18 17:27 | XCELERA ---
[id number]
[2023-03-18 17:51] LABS: Lyme Ab IgG w/WB Rflx Negative (Negative); Lyme Ab IgM w/WB Rflx Negative (Negative)
[2023-03-18] MEDS: ICU Protocol for HYPERglycemia SCH ×2 (17:56→20:15)
[2023-03-18] MEDS ORDERED: GADOBUTROL 65ML VIAL IV ONE (18:45)
--- NOTE | 2023-03-18 19:22 | Magnetic Resonance Report ---
MRI OF THE BRAIN COMBO CLINICAL HISTORY: Encephalopathy. Seizure. COMPARISON STUDY: CT of the brain dated 03/18/2023. TECHNIQUE: MRI of the brain was performed utilizing various T1 and T2-weighted sequences in the axial , sagittal, and coronal planes. Contrast-enhanced sequences were acquired following the administratio n of 13 cc of Gadavist. The examination is performed using the seizure protocol. The examination is d egraded by motion artifact. FINDINGS: Brain parenchyma: There is age-related involutional change noting moderate confluent subcortical and periventricular microangiopathic disease. Left temporal encephalomalacia is consistent with a remote insult. There is no hemorrhage or mass effect. There is no restricted diffusion to suggest acute isch emia. No enhancing mass lesion is identified on the postcontrast images. Simmons-white matter differenti ation is preserved. No extra-axial fluid collection is seen. The cerebellar tonsils are normal in con figuration. Ventricles, sulci, and cisterns: Prominent secondary to involutional change. Pituitary and sella: Unremarkable. Intracranial vasculature: Normal flow voids are maintained at the skull base. Orbits: The bony orbits are grossly intact. Orbital contents are normal in appearance noting bilatera l ocular lens implants. Sinuses and mastoids: There is trace mucosal thickening within the ethmoid sinuses. The remaining par a nasal sinuses are clear. There is a small right mastoid effusion. Layering fluid is noted in the ph arynx. Calvarium: There is postoperative change from left-sided craniotomy. Cervical cord: Partially visualized cervical spinal cord is normal in morphology and signal intensity . IMPRESSION: Chronic and postsurgical changes as above with no acute intracranial abnormality. ACT 112: Negative or not required by law. Electronically signed by: Russel Bocanegra M.D. 03/18/2023 7:20 PM
[2023-03-18] MEDS: INSULIN ASPART PER UNIT CHARGE SC SCH (19:26)
[2023-03-18] MEDS ORDERED: ALBUTEROL 0.083% NEBU SOLN 3 ML VIAL NEB PRN (20:01)
[2023-03-18] MEDS: CEFEPIME 2,000 MG in SYRINGE 0 ML IV SCH (20:16)
--- NOTE | 2023-03-18 20:24 | Electrocardiogram Report ---
Test Reason : Blood Pressure : / mmHG Vent. Rate : 111 BPM Atrial Rate : 111 BPM P-R Int : 182 ms QRS Dur : 098 ms QT Int : 342 ms P-R-T Axes : 035 -31 081 degrees QTc Int : 465 ms Poor data quality, interpretation may be adversely affected Sinus tachycardia with occasional Premature ventricular complexes and Fusion complexes Left axis deviation Inferior infarct (cited on or before 16-MAY-2017) Anterolateral infarct (cited on or before 16-MAY-2017) Abnormal ECG When compared with ECG of 29-NOV-2020 19:37, Premature ventricular complexes are now Present Questionable change in initial forces of Lateral leads Non-specific change in ST segment in Lateral leads Confirmed by Miah Rawls ([id number]) on 03/18/2023 8:24:41 PM Referred By: REFERRED SELF Confirmed By:Miah Rawls
[2023-03-18] MEDS: fentaNYL citrate PF 100 MCG/2 ML VIAL IV PRN (23:18)
[2023-03-19] MEDS: INSULIN ASPART PER UNIT CHARGE SC SCH ×5 (01:03→20:14)
[2023-03-19] MEDS: PROPOFOL BOLUS FROM BAG IV PRN ×4 (01:27→06:00)
[2023-03-19] MEDS: fentaNYL citrate PF 100 MCG/2 ML VIAL IV PRN ×3 (02:06→07:36)
[2023-03-19 03:47] LABS: Basophils # (auto) 0.06 K/uL (0-0.2); Basophils % (auto) 0.6 %; Eosinophils # (auto) 0.17 K/uL (0-0.50); Eosinophils % (auto) 1.7 %; Hematocrit (blood only) 40.1 % (42.0-52.0); Hemoglobin 13.3 g/dl (14.0-18.0); Immature Granulocytes # (auto) 0.04 K/uL (0.01-0.20); Immature Granulocytes % (auto) 0.4 %; Lymphocytes # (auto) 1.42 K/uL (1.2-3.4); Lymphocytes % (auto) 14.4 %; Mean Corpuscular Hgb Conc 33.2 g/dL (32.0-36.0); Mean Corpuscular Volume 90.5 fL (80.0-100.0); Mean Platelet Volume 10.8 fL (9.4-12.4); Monocytes # (auto) 1.08 K/uL (0.11-0.59); Monocytes % (auto) 10.9 %; Neutrophils # (auto) 7.12 K/uL (1.40-6.50); Platelet Count 165 K/uL (130-400); RDW Coefficient of Variation 13.6 % (11.5-14.5); RDW Standard Deviation 45.4 fL (36.4-46.3); Red Blood Count 4.43 M/uL (4.70-6.10); White Blood Count 9.89 K/ul (4.8-10.8)
[2023-03-19] MEDS: propofoL 1,000 MG/100 ML VIAL IV SCH ×5 (03:57→13:09)
[2023-03-19 04:14] LABS: Albumin Globulin Ratio 1.3 (0.9-2); Albumin Level 3.2 gm/dl (3.4-5.0); BUN Creatinine Ratio 16.5 (10-20); Bilirubin,Total 0.6 mg/dl (0.2-1.0); Calcium 7.9 mg/dl (8.6-10.3); Creatinine Clr Calc Pharmacy 54.6 ml/min; Est GFR (African American) 53.2 ml/min; Est GFR (Non-African American) 45.9 ml/min; Globulin 2.5 gm/dl (2.5-4.0); Potassium 4.7 mmol/L (3.5-5.1); Total Protein 5.7 gm/dl (6.0-8.3); Troponin I High Sensitivity 257.5 pg/ml (0-20)
[2023-03-19] MEDS: CEFEPIME 2,000 MG in SYRINGE 0 ML IV SCH ×2 (04:35→15:16)
[2023-03-19] MEDS: VANCOMYCIN HCL 1,250 MG in SODIUM CHLORIDE 0.9% 250 ML IV SCH ×2 (04:35→22:09)
--- NOTE | 2023-03-19 06:55 | Critical Care Progress Note ---
Date of Service March 19, 2023 Assessment & Plan (1) Generalized tonic-clonic seizure: (2) New onset seizure: (3) Metabolic acidosis: (4) Acute hyperglycemia: (5) Leukocytosis: (6) ILD (interstitial lung disease): (7) Diabetes mellitus type 2, uncontrolled: Plan Reason Critically Ill: 87-year-old male here with new onset seizure, altered mental status. Intubated/sedated. Plan to extubate this morning. 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 Meets SIRS criteria, without clear source of infection. Procal negative. CXR with pulmonary vascular congestion, no focal opacities. CT abdomen or pelvis without infectious/inflammatory source. - Lactate downtrending with a total of 5L IVF - CT head without acute changes - CTA head/neck with evidence of hemorrhage, mass effect or ischemic changes. Left vertebral artery dominant and patent. Right with near complete occlusion. - LP performed CSF with mildly elevated protein, glucose elevated in the setting of hyperglycemia. - MRI brain without acute process, post surgical changes from left sided craniotomy - EEG read is pendig Cardiac - CAD with history of PCI - s/p PCI with JOSE MARIA to mid LAD with staged placement of additional JOSE MARIA to proximal circumflex in 2017 - Per cardiology note from 01/2023 plavix discontinued, only on asa-> holding - ECG: Sinus tachycardia without new ST changes - Troponin peaked at 310- trending down; likely demand ischemia - TTE without significant change from prior; moderate concentric LVH with an EF= 45-50% HTN - Restart home medications lisinopril, spironolactone - Question about whether or not he is on clopidogrel/beta terell and when/why it was stopped. Cardiology consulted. Respiratory - Intubated/Mechanically ventilated Chronic Dyspnea - Likely multifactorial in the setting of CAD and suspected ILD - Suspected history of ILD, PFTs with restrictive pattern - Albuterol nebulizer prn for wheezing GI - NPO diet RENAL/LYTES - No significant electrolyte derangement. Replace lytes as needed. 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 Type/Screen completed ID - Leukocytosis - Leukocytosis to on admission 16, down to 9.89 - Borderline temperature; max=37.9 without clear source of infection - Report cough for past 3-4 days - CXR, CT abdomen pelvis as per above, without clear source of infection - Procal negative - Blood cultures without growth to date - LP performed CSF with protein= 58.3, mildly elevated, glucose= 156, elevated, 2 white cells, 8 red cells, CSF viral panel negative - Tick borne illness; Lyme antibodies negative, Anaplasmosis/Babesia smear negative, PCR pending - RPR pending - MRSA swab negative - Continue cefepime and vancomycin for empiric coverage LINES/IV ACCESS - PIVs intact. DVT PROPHYLAXIS - Lovenox Thank you for allowing us to be part of this patient's care. Please refer to Dr. Rojas's documentation for any further recommendationsh Admission and Anticipated Discharge Date Admission Date: March 18, 2023 Supervising Physician Co-Signing Physician Notes Dr. Gamez was resident physician during care of patient. I separately evaluated patient for bee portions of the history and the exam. I was present during the critical portion of medical decision making, and I discussed the case with the resident. I generally agree with the findings and plan. MRI results reviewed, EEG results reviewed. New onset seizure of unclear etiology. Will consult neurology for further evaluation. Patient was able to be liberated from the ventilator this morning. Reviewed cardiology consult, advise discontinuation of clopidogrel. Given the lack of ischemic stroke findings on MRI do not feel strongly compelled to can continue clopidogrel. 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 Would defer to neurology if any additional antiplatelet be on aspirin is needed. Patient was intubated for less than 24 hours, if he passes a bedside swallow he would be able to eat as his intubation was secondary to acute encephalopathy which is presumably secondary to a postictal state. I have personally spent 45 minutes of critical care time in the direct management of this patient. This is a life/limb threatening event. This includes time spent evaluating patient, direct bedside care, chart review, placing orders, interpretation of diagnostic studies, discussion with consultants, patient, and/or family members regarding treatment decisions, as well as other required patient management activities. This time is exclusive of all separately billable procedures, and teaching time and separate from and in addition to any other critical care service time. Subjective Pt is intubated and sedated. Review of Systems Review of Systems: Limited as pt is intubated and sedated Physical Exam Physical Exam: HEENT: NCAT, no conjunctival injection. CV: regular rhythm, no murmur appreciated, extremities well-perfused, no LE edema Resp: Mechanically ventilated and intubated, no wheezes/rales/rhonchi appreciated GI: soft, nondistended, nontender, BS normoactive MSK: no gross deformities appreciated Skin: warm, dry, no rash appreciated Neuro: sedated. Moving all 4 extremities. Results & Data Results & Data Vital Signs (Past 12 Hours) Vital Signs Temp Pulse Resp BP Pulse Ox O2 Del Method FiO2 03/19/23 04:00 40 03/19/23 03:40 81 29 H 94 40 03/19/23 02:00 81 27 H 149/73 H 95 03/18/23 23:05 83 27 H 93 40 03/18/23 19:05 92 H 25 H 94 40 03/19/23 01:00 90 20 99/53 L 92 03/19/23 00:00 95 H 21 109/49 L 91 03/18/23 23:00 93 H 28 H 133/69 95 03/18/23 22:00 88 15 103/57 L 93 03/18/23 21:00 90 21 109/59 L 93 03/18/23 20:00 88 20 85/49 L 90 03/19/23 00:00 96 H 03/18/23 20:00 Mechanical Vent 03/19/23 00:00 40 03/18/23 20:00 40 03/18/23 19:15 37.5 C 103 H 16 140/97 90 Mechanical Vent (7) Diabetes mellitus type 2, uncontrolled Glycemic state: with hyperglycemia Qualified Code(s): E11.65 - Type 2 diabetes mellitus with hyperglycemia
[2023-03-19] MEDS ORDERED: Nursing to Pharmacy Communication SCH ×2 (07:15→16:00)
[2023-03-19 08:02] LABS: Estimated Average Glucose 174 mg/dl; Hemoglobin A1C 7.7 % (4.5-5.6)
[2023-03-19] MEDS ORDERED: ASPIRIN 81 MG CHEW NG ONE (09:00)
[2023-03-19] MEDS: ATORVASTATIN 40 MG TAB PO SCH (09:16)
[2023-03-19] MEDS: SPIRONOLACTONE 25 MG TAB PO SCH (09:18)
[2023-03-19] MEDS: lisinopril 40 MG TAB PO SCH (09:18)
[2023-03-19] MEDS: ENOXAPARIN INJ 40 MG/0.4 ML SYR SQ SCH (10:25)
[2023-03-19] MEDS: LANTUS PER UNIT CHARGE SC SCH ×2 (10:28→20:13)
--- NOTE | 2023-03-19 11:20 | Cardiology Consultation ---
Date of Consultation March 19, 2023 Assessment & Plan (1) CAD (coronary artery disease): (2) Ischemic cardiomyopathy: (3) Elevated troponin I level: (4) Frequent unifocal PVCs: Plan 1. Coronary disease: He has well known coronary artery disease which was identified at catheterization about 6 years ago, he has had several stress tests recently without showing ischemia, most recently in 2020. His left ventricular ejection fraction was reduced initially but has not worsened appreciably, his echocardiogram this admission showed that his ejection fraction measured slightly lower than his last but I do not know that that is significant. He certainly could have had progression of coronary artery disease in the interim however there is certainly no indication for invasive evaluation now and I would not perform stress testing at this time. Although his troponin is somewhat e levated, his electrocardiogram does not show acute changes but I am going to repeat his electrocardiogram today. Normally aspirin and clopidogrel are continued for a year or less following intervention, therefore it was appropriate to discontinue his clopidogrel at his last visit. I do not think it should be reinstituted now. 2. Ischemic cardiomyopathy: Initially he had an echocardiogram showing left ventricular dysfunction, several years ago he was reported as having normal left ventricular function but given the degree of left ventricular function initially I suspect he has some degree of left ventricular dysfunction all along. He is on appropriate medications including beta-blockade and JOAQUIN inhibition. We could consider adding something like Jardiance but I do not think that is necessary at this time. 3. Elevated troponin: His elevation in troponin is probably demand ischemia although I cannot exclude a small myocardial infarction. Certainly this is not a cause for his presentation. On electrocardiography there are no acute changes so I would not pursue further evaluation. 4. Frequent PVCs: He has very frequent unifocal premature ventricular beats which based on morphology may originate near the right ventricular outflow tract. Often these are amenable to beta-terell therapy, his beta-terell is held at the moment but I am going to restart it. With this frequent premature beats that could cause his mild left ventricular dysfunction as well. This may need to be followed in the future. I am going to restart his outpatient dose of metoprolol succinate 50 mg twice a day, we may want to titrate that if his blood pressure holds. History of Present Illness Reason for Consultation: Coronary disease, elevated troponin Attending Physician: Sury Beth MD History of Present Illness This is an 87-year-old male who has a history of diabetes mellitus, hypertension as well as a remote subdural hematoma. He has coronary disease identified when he had a STEMI on May 16, 2017. He was found to have severe multivessel coronary disease at catheterization with a chronically occluded right PDA, severe proximal circumflex disease and acute LAD occlusion. There was also other disease in branch vessels. He did have PCI in the anterior distribution at the time. He had left ventricular dysfunction with ejection fraction of 35 to 40%. Subsequently circumflex PCI was performed. In 2020 he was having dyspnea on exertion and a Lexiscan SPECT scan was performed. Repeat echocardiography showed an ejection fraction of 50% with LVH. He was evaluated in the office on February 06, 2023 where clopidogrel was discontinued and aspirin was continued. He remains on metoprolol succinate 50 mg twice a day as well as atorvastatin 80 mg daily and lisinopril 40 mg daily. He is also on diuretic as needed. He presented on March 18, 2023 with a initial complaint of headache and some other neurologic symptoms then followed by a seizure (which I believe occurred in the ambulance) and in the emergency room was unconscious and required intubation. No acute UTILITY OPERATOR abnormality was identified. He has been extubated and is now conversational. He specifically denies any chest discomfort, his activities are limited by back pain and he does not remember much about this episode. An echocardiogram done March 18, 2023 shows normal left ventricular size with moderate concentric left ventricular hypertrophy and ejection fraction of 45 to 50%. Laboratory studies on presentation included serial troponins, the presenting was 26, for subsequent troponins were done with a peak of 301 11 hours after the first and 231 about 24 hours after the first measurement. His electrocardiogram on presentation shows sinus tachycardia with premature ventricular complexes and inferior and anterolateral infarctions. No acute changes. Allergies Allergy/AdvReac Type Severity Reaction Status Date / Time aspirin AdvReac Severe fell=subdural=wouldn't Verified 02/06/23 15:07 stop bleeding -BUT CURRENTLY TAKES IT metformin AdvReac Intermediate diarrhea Verified 02/06/23 15:07 Home Medications Medication Instructions Recorded Confirmed Type aspirin 81 mg tablet,delayed 81 mg PO DAILY 06/28/19 03/18/23 History release (Adult Aspirin Regimen) atorvastatin 80 mg tablet 80 mg PO DAILY 06/28/19 03/18/23 History glyburide 5 mg tablet 10 mg PO BID 06/28/19 03/18/23 History lisinopril 40 mg tablet 40 mg PO DAILY 06/28/19 03/18/23 History nitroglycerin 0.4 mg sublingual 0.4 mg sublingual .COMPLEX 06/28/19 03/18/23 History tablet spironolactone 25 mg tablet 25 mg PO DAILY #90 tabs 12/06/20 03/18/23 Rx insulin NPH isoph U-100 human 100 44 unit (0.44 mL) subcut BID #30 mL 01/03/21 03/18/23 Rx unit/mL subcutaneous suspension metoprolol succinate 50 mg 50 mg PO BID #180 tabs 10/01/21 03/18/23 Rx tablet,extended release 24 hr Flutter Valve #1 ea 01/21/22 02/06/23 Rx albuterol sulfate 90 mcg/actuation 2 puff inhalation Q6H PRN 01/21/22 03/18/23 Rx aerosol inhaler Shortness Of Breath Or Wheezing #18 grams cetirizine 10 mg tablet 10 mg PO DAILY PRN allergy 07/08/22 03/18/23 Rx symptoms #30 tabs furosemide 40 mg tablet 40 mg PO DAILY PRN shortness of 08/08/22 03/18/23 Rx breath #30 tabs cholecalciferol (vitamin D3) 25 25 mcg PO DAILY 03/18/23 03/18/23 History mcg (1,000 unit) capsule clopidogrel 75 mg tablet (Plavix) 75 mg PO DAILY 03/18/23 03/18/23 History empagliflozin 10 mg tablet 10 mg PO DAILY 03/18/23 03/18/23 History (Jardiance) montelukast 10 mg tablet 10 mg PO HS 03/18/23 03/18/23 History Patient History Medical History CAD (coronary artery disease) Diabetes mellitus type 2, uncontrolled Hypertension Hypomagnesemia Hypoxia Sleep apnea in adult Surgical History History of brain surgery Family History Other Myocardial infarction No significant family history Denies family history of Ovarian cancer Prostate cancer Breast cancer Colorectal cancer Social History Smoking Status: Unknown if ever smoked Second Hand Exposure: No; Do You Dip or Chew Tobacco: No; Hx Alcohol Use: No Hx Substance Use: No Preferred Language: Bengali Communication Ability: Unable Oven Worker Required: No Beliefs That Will Affect Care: None marital status: Current Living Situation: Spouse current occupational status: employed 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 He is laying supine in bed and is awake and alert. HEENT: Unremarkable Neck: No jugular venous distention, carotid pulses are normal and equal bilaterally without bruits. Pulmonary: Clear to auscultation bilaterally. Cardiac: Regular rhythm with no murmur, gallop or rub. Abdomen: Soft, nontender with normal bowel sounds. Extremities: No edema. Distal pulses intact. Neurologic: No focal findings. Skin: No rash, ecchymoses or petechiae. Results & Data Vital Signs (Past 12 Hours) Vital Signs Temp Pulse Resp BP Pulse Ox O2 Del Method O2 Flow Rate 03/19/23 08:00 36.8 C 03/19/23 10:31 82 36 H 151/91 H 93 Nasal Cannula 4 03/19/23 10:01 106 H 25 H 163/90 H 90 Nasal Cannula 4 03/19/23 09:31 99 H 23 137/75 94 CPAP, Mechanical Vent 03/19/23 09:00 70 21 123/75 93 CPAP, Mechanical Vent 03/19/23 08:31 87 26 H 135/83 93 03/19/23 08:00 96 H 27 H 143/63 H 95 Mechanical Vent 03/19/23 08:05 03/19/23 08:05 85 26 H 94 03/19/23 07:50 80 26 H 94 03/19/23 07:31 94 H 25 H 111/68 94 Mechanical Vent 03/19/23 07:16 89 25 H 146/63 H 96 Mechanical Vent 03/19/23 07:00 85 18 129/63 95 Mechanical Vent 03/19/23 08:00 76 03/19/23 08:00 03/19/23 07:43 Mechanical Vent 03/19/23 06:46 93 H 26 H 95 03/19/23 06:46 119/69 03/19/23 06:31 92 H 25 H 95 03/19/23 06:00 90 19 123/62 94 03/19/23 05:00 88 21 95/50 L 91 03/19/23 04:00 97 H 21 147/86 H 95 03/19/23 03:00 87 20 111/58 L 93 03/19/23 00:00 37.5 C 03/19/23 04:00 03/19/23 03:40 81 29 H 94 03/19/23 02:00 81 27 H 149/73 H 95 03/19/23 01:00 90 20 99/53 L 92 03/19/23 00:00 95 H 21 109/49 L 91 03/19/23 00:00 96 H 03/19/23 00:00 FiO2 03/19/23 08:00 03/19/23 10:31 03/19/23 10:01 03/19/23 09:31 40 03/19/23 09:00 40 03/19/23 08:31 03/19/23 08:00 40 03/19/23 08:05 40 03/19/23 08:05 40 03/19/23 07:50 40 03/19/23 07:31 40 03/19/23 07:16 40 03/19/23 07:00 40 03/19/23 08:00 03/19/23 08:00 40 03/19/23 07:43 40 03/19/23 06:46 03/19/23 06:46 03/19/23 06:31 03/19/23 06:00 03/19/23 05:00 03/19/23 04:00 03/19/23 03:00 03/19/23 00:00 03/19/23 04:00 40 03/19/23 03:40 40 03/19/23 02:00 03/19/23 01:00 03/19/23 00:00 03/19/23 00:00 03/19/23 00:00 40 Laboratory Results Cardiac Enzymes 0503/18/23 03/18/23 Range/Units 10:25 13:45 21:56 AST 24 (13-39) U/L Troponin I High Sens 25.8 H 185.1 H* D 301.4 H* D (0-20) pg/ml 03/19/23 03/19/23 Range/Units 03:24 09:12 AST 20 (13-39) U/L Troponin I High Sens 257.5 H* 231.0 H* (0-20) pg/ml Coagulation 03/18/23 Range/Units 10:25 PT 11.0 (9.0-12.0) Seconds APTT 29.7 (21.0-31.0) Seconds CBC 03/19/23 Range/Units 03:24 WBC 9.89 (4.8-10.8) K/ul RBC 4.43 L (4.70-6.10) M/uL Hgb 13.3 L D (14.0-18.0) g/dl Hct 40.1 L (42.0-52.0) % Plt Count 165 (130-400) K/uL Neut # (Auto) 7.12 H (1.40-6.50) K/uL Lymph # (Auto) 1.42 (1.2-3.4) K/uL [place] # (Auto) 1.08 H (0.11-0.59) K/uL Eos # (Auto) 0.17 (0-0.50) K/uL Baso # (Auto) 0.06 (0-0.2) K/uL Comprehensive Metabolic Panel 03/18/23 03/19/23 Range/Units 10:25 03:24 Sodium 136 137 (136-145) mmol/L Potassium 4.6 4.7 (3.5-5.1) mmol/L Chloride 102 107 (98-107) mmol/L Carbon Dioxide 11 L 25 (21-32) mmol/L BUN 18 23 (6-23) mg/dl Creatinine 1.26 1.39 (0.6-1.4) mg/dl Glucose 329 H* 188 H (70-99(Fasting)) mg/dl Calcium 9.3 7.9 L (8.6-10.3) mg/dl AST 24 20 (13-39) U/L ALT 20 22 (7-52) U/L Alkaline Phosphatase 68 48 (34-104) U/L Total Protein 7.6 5.7 L D (6.0-8.3) gm/dl Albumin 4.2 3.2 L (3.4-5.0) gm/dl Intake and Output 03/18/23 03/19/23 03/19/23 22:59 06:59 14:59 Intake Total 1159.571 / 4892.379 433.055 / 4892.379 145.000 / 145.000 Output Total 550 / 550 75 / 75 Balance 1159.571 / 4342.379 -116.945 / 4342.379 70.000 / 70.000 Intake: IV 1159.571 / 4892.379 433.055 / 4892.379 45.000 / 45.000 Sodium Chloride 0.9% 1000ML 1, 1000 / 1000 000 ml @ 999 mls/hr IV .Q1H1M [facility] Rx#:[id number] Vancomycin HCl 1,250 mg In 275 / 275 Sodium Chloride 0.9% 250 ml @ 200 mls/hr IV Q18H [facility] Rx#: [id number] propofoL 1,000 mg In 100 ml @ 159.571 / 347.379 158.055 / 347.379 45.000 / 45.000 15 MCG/KG/MIN 11.88 mls/hr IV . Q8H26M [facility] Rx#:[id number] Oral 0 / 0 Tube Irrigant 100 / 100 Output: Urine Amount (Catheter) 550 / 550 75 / 75 Mccrary/Indwelling 550 / 550 75 / 75 Other: Weight 132 kg 126.9 kg Weight Measurement Method Built in [facility] Patient Weight 03/20/23 06:59 Weight 126.9 kg Diagnostic Findings Telemetry: Sinus rhythm, very frequent premature ventricular beats, ventricular couplets. Electrocardiogram this morning shows very frequent premature ventricular beats, often ventricular trigeminy, the morphology of the PVC is inferior and leftward, there is a Q in V1 although not a QS so this suggests an origin near the right ventricular outflow tract. This does not suggest an ischemic origin. PG Care Time/CCT Total # of Minutes Spent Total Time Spent with Patient: Total time spent is greater than 50% in coordination of care (as documented) at patient's floor/unit and/or counseling patient: Coding Level of Care Code 66324 INT INP/OBS CARE 3/75MIN Diagnoses CAD (coronary artery disease) I25.10 Associated angina: without angina Coronary Disease-Associated Artery/Lesion type: [place] artery [place] vs. transplanted heart: [place] heart Ischemic cardiomyopathy I25.5 Elevated troponin I level R77.8 Frequent unifocal PVCs I49.3 (1) CAD (coronary artery disease) Associated angina: without angina Coronary Disease-Associated Artery/Lesion type: [place] artery [place] vs. transplanted heart: [place] heart Qualified Code(s): I25.10 - Atherosclerotic heart disease of [place] coronary artery without angina pectoris
--- NOTE | 2023-03-19 11:24 | Electroencephalogram ---
EEG Procedure Note Date of Service March 19, 2023 Start / End Times Start Time: 7:19 AM End Time: 7:[address] 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 Home Medication List Medication Instructions Recorded Confirmed Type aspirin 81 mg tablet,delayed 81 mg PO DAILY 06/28/19 03/18/23 History release (Adult Aspirin Regimen) atorvastatin 80 mg tablet 80 mg PO DAILY 06/28/19 03/18/23 History glyburide 5 mg tablet 10 mg PO BID 06/28/19 03/18/23 History lisinopril 40 mg tablet 40 mg PO DAILY 06/28/19 03/18/23 History nitroglycerin 0.4 mg sublingual 0.4 mg sublingual .COMPLEX 06/28/19 03/18/23 History tablet spironolactone 25 mg tablet 25 mg PO DAILY #90 tabs 12/06/20 03/18/23 Rx insulin NPH isoph U-100 human 100 44 unit (0.44 mL) subcut BID #30 mL 01/03/21 03/18/23 Rx unit/mL subcutaneous suspension metoprolol succinate 50 mg 50 mg PO BID #180 tabs 10/01/21 03/18/23 Rx tablet,extended release 24 hr Flutter Valve #1 ea 01/21/22 02/06/23 Rx albuterol sulfate 90 mcg/actuation 2 puff inhalation Q6H PRN 01/21/22 03/18/23 Rx aerosol inhaler Shortness Of Breath Or Wheezing #18 grams cetirizine 10 mg tablet 10 mg PO DAILY PRN allergy 07/08/22 03/18/23 Rx symptoms #30 tabs furosemide 40 mg tablet 40 mg PO DAILY PRN shortness of 08/08/22 03/18/23 Rx breath #30 tabs cholecalciferol (vitamin D3) 25 25 mcg PO DAILY 03/18/23 03/18/23 History mcg (1,000 unit) capsule clopidogrel 75 mg tablet (Plavix) 75 mg PO DAILY 03/18/23 03/18/23 History empagliflozin 10 mg tablet 10 mg PO DAILY 03/18/23 03/18/23 History (Jardiance) montelukast 10 mg tablet 10 mg PO HS 03/18/23 03/18/23 History Inpatient Medication List Atorvastatin Calcium (Atorvastatin 40 Mg Tab) 80 mg PO DAILY [facility] Stop: 04/18/23 08:59 Last Admin: 03/19/23 09:16 Dose: 80 mg Documented By: SHAYK Enoxaparin Sodium (Enoxaparin Inj 40 Mg/0.4 Ml Syr) 40 mg SQ DAILY [facility] Stop: 04/18/23 09:59 Last Admin: 03/19/23 10:25 Dose: 40 mg Documented By: SHAYK Fentanyl Citrate (Fentanyl Citrate Pf 100 Mcg/2 Ml Vial) 50 mcg IV Q1H PRN PRN Reason: Pain, dysncyrony with vent Stop: 04/01/23 20:15 Last Admin: 03/19/23 07:36 Dose: 50 mcg Documented By: Admin: 03/19/23 04:02 Dose: 50 mcg Documented By: Admin: 03/19/23 02:06 Dose: 50 mcg Documented By: Admin: 03/18/23 23:18 Dose: 50 mcg Documented By: DG Propofol (Diprivan) 1,000 mg in 100 mls @ 7.92 mls/hr IV .[id number] [facility]; Protocol Stop: 03/21/23 10:29 Last Titration: 03/19/23 10:00 Dose: 0 mcg/kg/min, 0 mls/hr Documented By: Titration: 03/19/23 09:30 Dose: 10 mcg/kg/min, 7.9 mls/hr Documented By: K Titration: 03/19/23 08:54 Dose: 15 mcg/kg/min, 11.9 mls/hr Documented By: K Admin: 03/19/23 08:54 Dose: Not Given Documented By: K Titration: 03/19/23 07:20 Dose: 20 mcg/kg/min, 15.8 mls/hr Documented By: K Admin: 03/19/23 07:20 Dose: Not Given Documented By: K Titration: 03/19/23 07:05 Dose: 25 mcg/kg/min, 19.8 mls/hr Documented By: K Admin: 03/19/23 06:53 Dose: 30 mcg/kg/min, 23.8 mls/hr Documented By: DG Co-signed By: EMERSON Titration: 03/19/23 06:53 Dose: 30 mcg/kg/min, 23.8 mls/hr Documented By: CF Co-signed By: HLK Titration: 03/19/23 04:25 Dose: 30 mcg/kg/min, 23.8 mls/hr Documented By: Titration: 03/19/23 04:15 Dose: 25 mcg/kg/min, 19.8 mls/hr Documented By: Titration: 03/19/23 04:05 Dose: 20 mcg/kg/min, 15.8 mls/hr Documented By: Admin: 03/19/23 03:57 Dose: 15 mcg/kg/min, 11.9 mls/hr Documented By: CF Co-signed By: TMG Titration: 03/19/23 03:57 Dose: 15 mcg/kg/min, 11.9 mls/hr Documented By: CF Co-signed By: TMG Admin: 03/18/23 20:14 Dose: 15 mcg/kg/min, 11.9 mls/hr Documented By: CF Co-signed By: TMG Titration: 03/18/23 20:14 Dose: 15 mcg/kg/min, 11.9 mls/hr Documented By: CF Co-signed By: TMG Titration: 03/18/23 17:56 Dose: 15 mcg/kg/min, 11.9 mls/hr Documented By: Titration: 03/18/23 17:23 Dose: 10 mcg/kg/min, 7.9 mls/hr Documented By: Admin: 03/18/23 15:31 Dose: 40 mcg/kg/min, 31.7 mls/hr Documented By: HLK Co-signed By: DMB Titration: 03/18/23 15:31 Dose: 20 mcg/kg/min, 15.8 mls/hr Documented By: HLK Co-signed By: DMB Titration: 03/18/23 13:21 Dose: 40 mcg/kg/min, 31.7 mls/hr Documented By: Titration: 03/18/23 12:49 Dose: 35 mcg/kg/min, 27.7 mls/hr Documented By: Titration: 03/18/23 12:31 Dose: 30 mcg/kg/min, 23.8 mls/hr Documented By: Titration: 03/18/23 12:24 Dose: 25 mcg/kg/min, 19.8 mls/hr Documented By: Admin: 03/18/23 12:03 Dose: 20 mcg/kg/min, 15.8 mls/hr Documented By: AM Co-signed By: DAVONTE Vancomycin HCl 1,250 mg/ (Sodium Chloride) 275 mls @ 200 mls/hr IV Q18H [facility]; Protocol Stop: 03/20/23 23:59 Last Infusion: 03/19/23 06:12 Dose: 0 mls/hr Documented By: Admin: 03/19/23 04:35 Dose: 200 mls/hr Documented By: CF Insulin Aspart (Insulin Aspart Per Unit Charge) 0 units SC Q6 [facility] Stop: 04/17/23 17:59 Last Admin: 03/19/23 06:11 Dose: 3 units Documented By: CF Co-signed By: YASMIN Admin: 03/19/23 01:03 Dose: Not Given Documented By: Admin: 03/18/23 19:26 Dose: 3 units Documented By: DG Co-signed By: JOEL Insulin Glargine (Lantus Per Unit Charge) 10 units SC BID [facility] Stop: 04/18/23 09:59 Last Admin: 03/19/23 10:28 Dose: 10 units Documented By: EMERSON Co-signed By: AZEEM(2) Lisinopril (Lisinopril 40 Mg Tab) 40 mg PO DAILY [facility] Stop: 04/18/23 08:59 Last Admin: 03/19/23 09:18 Dose: 40 mg Documented By: EMERSON Propofol (Propofol Bolus From Bag) 20 mg IV Q5M PRN PRN Reason: Sedation Stop: 03/21/23 10:25 Last Admin: 03/19/23 06:00 Dose: 20 mg Documented By: CF Co-signed By: YASMIN Admin: 03/19/23 05:15 Dose: 20 mg Documented By: DG Co-signed By: YASMIN Admin: 03/19/23 05:00 Dose: 20 mg Documented By: CF Co-signed By: YASMIN Admin: 03/19/23 01:27 Dose: 20 mg Documented By: CF Co-signed By: YASMIN Admin: 03/18/23 14:12 Dose: 20 mg Documented By: AM Co-signed By: DAVONTE Admin: 03/18/23 12:52 Dose: 20 mg Documented By: AM Co-signed By: DAVONTE Admin: 03/18/23 12:32 Dose: 20 mg Documented By: AM Co-signed By: KAVITA Admin: 03/18/23 12:17 Dose: 20 mg Documented By: AM Co-signed By: DAVONTE Spironolactone (Spironolactone 25 Mg Tab) 25 mg PO DAILY [facility] Stop: 04/18/23 08:59 Last Admin: 03/19/23 09:18 Dose: 25 mg Documented By: EMERSON Discontinued Medications Aspirin (Aspirin 81 Mg Chew) 81 mg NG DAILY ONE Stop: 03/19/23 09:01 Last Admin: 03/19/23 09:15 Dose: 81 mg Documented By: EMERSON Fentanyl Citrate (Fentanyl Citrate Pf 100 Mcg/2 Ml Vial) Confirm Administered Dose 100 mcg .ROUTE .STK-MED ONE Stop: 03/18/23 14:48 Last Admin: 03/18/23 15:30 Dose: 100 mcg Documented By: EMERSON Fentanyl Citrate (Fentanyl Citrate Pf 100 Mcg/2 Ml Vial) 100 mcg IV NOW STA Stop: 03/18/23 15:30 Last Admin: 03/18/23 15:37 Dose: Not Given Documented By: EMERSON Gadobutrol (Gadobutrol 65ml Vial) 13 ml IV ONCE ONE Stop: 03/18/23 18:46 Last Admin: 03/18/23 18:46 Dose: 13 ml Documented By: ANNA Levetiracetam 2,000 mg/ Sodium (Chloride) 270 mls @ 999 mls/hr IV NOW STA Stop: 03/18/23 10:46 Last Infusion: 03/18/23 11:24 Dose: 0 mls/hr Documented By: Admin: 03/18/23 11:01 Dose: 999 mls/hr Documented By: KARLO Sodium Chloride (Nss 1000ml) 2,000 mls @ 999 mls/hr IV .Q2H1M ONE Stop: 03/18/23 13:49 Last Infusion: 03/18/23 14:16 Dose: 0 mls/hr Documented By: Admin: 03/18/23 12:22 Dose: 999 mls/hr Documented By: AM Cefepime HCl (Maxipime) 2,000 mg in 20 mls @ 5 mls/min IV NOW STA; Protocol Stop: 03/18/23 12:17 Last Admin: 03/18/23 12:37 Dose: 5 mls/min Documented By: AM Sodium Chloride (Nss 1000ml) 1,000 mls @ 999 mls/hr IV .Q1H1M ONE Stop: 03/18/23 13:15 Last Infusion: 03/18/23 13:34 Dose: 0 mls/hr Documented By: Admin: 03/18/23 12:17 Dose: 999 mls/hr Documented By: AM Cefepime HCl 2,000 mg/ Syringe 20 mls @ 5 mls/min IV Q8H [facility]; Protocol Stop: 03/20/23 15:59 Last Admin: 03/19/23 04:35 Dose: 5 mls/min Documented By: Admin: 03/18/23 20:16 Dose: 5 mls/min Documented By: CF Vancomycin HCl 2,750 mg/ (Sodium Chloride) 555 mls @ 200 mls/hr IV NOW ONE Stop: 03/18/23 18:46 Last Admin: 03/18/23 16:13 Dose: 200 mls/hr Documented By: SHAYK Sodium Chloride (Nss 1000ml) 1,000 mls @ 999 mls/hr IV .Q1H1M ONE Stop: 03/18/23 18:19 Last Infusion: 03/18/23 18:27 Dose: 0 mls/hr Documented By: Admin: 03/18/23 17:23 Dose: 999 mls/hr Documented By: SHAYK Ioversol (Optiray 320 500ml) 115 ml IV ONCE ONE Stop: 03/18/23 11:55 Last Admin: 03/18/23 11:44 Dose: 115 ml Documented By: BRM Lorazepam (Lorazepam 2 Mg/1 Ml Vial) 2 mg IV NOW STA Stop: 03/18/23 10:20 Last Admin: 03/18/23 10:19 Dose: 2 mg Documented By: MNE Lorazepam (Lorazepam 2 Mg/1 Ml Vial) 2 mg IV NOW STA Stop: 03/18/23 12:55 Last Admin: 03/18/23 13:02 Dose: 2 mg Documented By: AZEEM Miscellaneous (Rapid Sequence Induction Bag) Confirm Administered Dose 1 each N/A .STK-MED ONE Stop: 03/18/23 10:12 Last Admin: 03/18/23 14:06 Dose: Not Given Documented By: AM Pernell (Stat Iv Infusion Titration Per Protocol) 1 each N/A NOW STA Stop: 03/18/23 10:27 Last Admin: 03/18/23 12:23 Dose: Not Given Documented By: AZEEM Gimenez (Patient's Height &/Or Weight Needed) 1 each N/A Q2H [facility] Stop: 04/17/23 10:44 Last Admin: 03/18/23 11:24 Dose: 1 each Documented By: AZEEM Gimenez (Icu Protocol For Hyperglycemia) 1 each N/A ACHS [facility] Stop: 03/20/23 16:29 Last Admin: 03/18/23 20:15 Dose: Not Given Documented By: Admin: 03/18/23 17:56 Dose: 1 each Documented By: EMERSON Pneumococcal Polyvalent Vaccine (Pneumococcal Polysaccharides 25 Mcg/0.5 Ml Vial/Syr) 25 mcg IM .ONCE ONE Stop: 03/18/23 16:12 Last Admin: 03/19/23 11:14 Dose: Not Given Documented By: EMERSON Propofol (Propofol Iv Emulsion 10 Mg/Ml 100 Ml Vial) Confirm Administered Dose 1,000 mg IV .STK-MED ONE Stop: 03/18/23 10:28 Last Admin: 03/18/23 12:23 Dose: Not Given Documented By: AM Sodium Bicarbonate (Sodium Bicarb 8.4% Inj 50 Meq/50 Ml Syr) 50 meq IV NOW STA Stop: 03/18/23 11:55 Last Admin: 03/18/23 12:08 Dose: 50 meq Documented By: AM Description This is a 21 electrode EEG with a single channel dedicated to limited EKG. The electrodes were placed in accordance with the International 10-20 system. The predominant background rhythm consists of polymorphic generalized theta activity with intermittent 10 Hz low amplitude alpha activity. There is no abnormal response with photic stimulation. Hyperventilation is not performed. There is intermittent high amplitude left hemispheric theta and delta slowing. There are intermittent left temporal sharps. There are no abnormal synchronous discharges. Interpretation Abnormal awake/drowsy EEG with evidence of focal slowing and sharps localizing to the left cerebral hemisphere, superimposed on generalized background slowing. Results suggestive of underlying structural or neuronal dysfunction localizing to the left cerebral hemisphere as well as a generalized nonspecific encephalopathy. No evidence of seizure activity at this time. [facility] EEG Procedure Codes Indication for Procedure (1) New onset seizure: Neurology Neurology: 28170 EEG include record awake & drowsy
--- NOTE | 2023-03-19 11:28 | Billing Data ---
Date of Service March 19, 2023 Coding Level of Care Code 52367 CRITICAL CARE M
--- NOTE | 2023-03-19 12:54 | Neurology Consultation ---
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 He presented to the emergency department yesterday after a new onset generalized tonic-clonic seizure occurring in the context of hyperglycemia and metabolic acidosis. He was temporarily intubated but weaned from mechanical ventilator earlier this morning. CT angiography of the head and neck has revealed an age-indeterminate occlusion of the right vertebral artery in the neck and at the skull base. A brain MRI is negative for acute or subacute stroke but does reveal chronic encephalomalacia of the left temporal lobe and postoperative change. An EEG has revealed left hemispheric slowing and sharps localizing to the left temporal region. I believe this patient's new onset seizure was of multifactorial etiology, occurring in the context of hyperglycemia, metabolic acidosis, history of subdural hemorrhage requiring craniotomy with residual left temporal encephalomalacia. The underlying brain injury does increase his risk for seizures, especially in the context of acute metabolic derangement. I would recommend treatment with an anticonvulsant at this time. Would recommend Keppra 500 mg twice daily. This medication may be given orally. He was instructed to abstain from driving for the time being. Medical management is recommended for the vertebral artery occlusion. He should continue with daily low-dose aspirin and atorvastatin. (Clopidogrel discontinued per cardiology, no need for long-term dual antiplatelet therapy.) May follow-up with myself or an NAN in neurology clinic in 2 to 3 weeks. History of Present Illness Reason for Consultation: new onset seizure Requesting Physician: Dr. Gamez Attending Physician: Sury Beth MD History of Present Illness The patient is an 87-year-old male who had presented to the emergency department yesterday complaining of a headache, he was hyperglycemic in route to the hospital and had a generalized seizure lasting about 45 seconds. No prior history of seizures according to patient's spouse. He developed significant respiratory distress and was subsequently intubated. His spouse had commented that he had been shaking a lot lately and may have had some difficulty moving his left hand earlier yesterday morning, before slumping off of a chair yesterday morning, before she had contacted EMS. He did have a low-grade fever when he was evaluated in the emergency department. He was hypertensive at that time as well, 197/92. His white blood cell count was elevated, 16.04. A metabolic panel revealed normal sodium, potassium, BUN, creatinine. A glucose was 329. Transaminases normal. He has had an elevated troponin. TSH normal. A lumbar puncture was completed as well. Clear, colorless, no xanthochromia, WBC and RBC counts normal. Glucose 156, protein 58.3. CSF BioFire meningoencephalitis panel negative. Screening for Lyme disease and Lyme, infections, anaplasmosis, babesiosis negative. SARS-CoV-[address] of the head including CTA of the head and neck were completed as well. No evidence of hemorrhage or acute process, there is evidence of a prior left craniotomy as well and area of encephalomalacia involving the anterior left temporal lobe. The left vertebral artery dominant, there is a near complete occlusion of the right vertebral artery in the neck and at the skull base of undetermined chronicity. No carotid disease identified. A brain MRI redemonstrates the area of left temporal encephalomalacia and postsurgical changes as seen on CT of the head although in greater detail. There is no evidence of acute or subacute stroke. No evidence of hemorrhage. There is generalized atrophy as well as chronic small vessel ischemic disease. An EEG was completed this morning. The study does reveal focal slowing and sharps localizing to the left cerebral hemisphere, superimposed on generalized background slowing. No evidence of seizure activity at this time, however. The patient was seen by cardiology today. History of coronary artery disease, slight reduction in ejection fraction on recent echocardiogram noted, considering interval progression of coronary artery disease although no specific indication for invasive evaluation at this time. Troponin somewhat elevated although ECG not suggestive of acute change. Plan to repeat ECG. Patient on appropriate medications including beta-blockers and JOAQUIN inhibition. Frequent PVCs, plan to restart beta-terell. Critical care note reviewed from today. New onset seizure, metabolic acidosis, acute hyperglycemia, leukocytosis, i nterstitial lung disease, type 2 diabetes mellitus, uncontrolled. Patient evaluated with family at bedside. No prior history of seizures. Has served in the [employer]. Continues to live independently with his spouse, continues to drive. No known history of dementia. Patient was extubated this morning. He was evaluated while he was sitting up in a bedside chair. He is mildly lethargic. He answers questions appropriately. He denies headache or focal weakness at this time. Past medical history notable for subdural hemorrhage in 2008 requiring craniotomy and temporary shunt. Have been treated by Dr. Lin, neurosurgery, at that time. He made a full neurologic recovery and has not experienced any known seizures since that time, until the above presentation. Allergies Allergy/AdvReac Type Severity Reaction Status Date / Time aspirin AdvReac Severe fell=subdural=wouldn't Verified 02/06/23 15:07 stop bleeding -BUT CURRENTLY TAKES IT metformin AdvReac Intermediate diarrhea Verified 02/06/23 15:07 Home Medications Medication Instructions Recorded Confirmed Type aspirin 81 mg tablet,delayed 81 mg PO DAILY 06/28/19 03/18/23 History release (Adult Aspirin Regimen) atorvastatin 80 mg tablet 80 mg PO DAILY 06/28/19 03/18/23 History glyburide 5 mg tablet 10 mg PO BID 06/28/19 03/18/23 History lisinopril 40 mg tablet 40 mg PO DAILY 06/28/19 03/18/23 History nitroglycerin 0.4 mg sublingual 0.4 mg sublingual .COMPLEX 06/28/19 03/18/23 History tablet spironolactone 25 mg tablet 25 mg PO DAILY #90 tabs 12/06/20 03/18/23 Rx insulin NPH isoph U-100 human 100 44 unit (0.44 mL) subcut BID #30 mL 01/03/21 03/18/23 Rx unit/mL subcutaneous suspension metoprolol succinate 50 mg 50 mg PO BID #180 tabs 10/01/21 03/18/23 Rx tablet,extended release 24 hr Flutter Valve #1 ea 01/21/22 02/06/23 Rx albuterol sulfate 90 mcg/actuation 2 puff inhalation Q6H PRN 01/21/22 03/18/23 Rx aerosol inhaler Shortness Of Breath Or Wheezing #18 grams cetirizine 10 mg tablet 10 mg PO DAILY PRN allergy 07/08/22 03/18/23 Rx symptoms #30 tabs furosemide 40 mg tablet 40 mg PO DAILY PRN shortness of 08/08/22 03/18/23 Rx breath #30 tabs cholecalciferol (vitamin D3) 25 25 mcg PO DAILY 03/18/23 03/18/23 History mcg (1,000 unit) capsule clopidogrel 75 mg tablet (Plavix) 75 mg PO DAILY 03/18/23 03/18/23 History empagliflozin 10 mg tablet 10 mg PO DAILY 03/18/23 03/18/23 History (Jardiance) montelukast 10 mg tablet 10 mg PO HS 03/18/23 03/18/23 History Patient History Medical History CAD (coronary artery disease) Diabetes mellitus type 2, uncontrolled Hypertension Hypomagnesemia Hypoxia Sleep apnea in adult Surgical History History of brain surgery Family History Other Myocardial infarction No significant family history Denies family history of Ovarian cancer Prostate cancer Breast cancer Colorectal cancer Social History Smoking Status: Unknown if ever smoked Second Hand Exposure: No; Do You Dip or Chew Tobacco: No; Hx Alcohol Use: No Hx Substance Use: No Preferred Language: Hong Konger Communication Ability: Unable Vehicle Operator Required: No Beliefs That Will Affect Care: None marital status: Current Living Situation: Spouse current occupational status: employed 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, 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 Feels Safe at Home: Yes Dental Care, Regularly: No Physical Activity Frequency: 3-4 Times per Week Seatbelt Use: sometimes Assistive Devices: Glasses Review of Systems Constitutional: no fever and no chills Eyes: no blind spots and no diplopia Ear, Nose, Mouth, Throat: no hearing loss Respiratory: no cough and no dyspnea Cardiovascular: no chest pain and no palpitations Gastrointestinal: no nausea and no vomiting Genitourinary: no dysuria Musculoskeletal: no neck pain and no myalgia Integumentary: no rash and no lesions Neurologic: as per Subjective / HPI, + loss of sensation, + paresthesia, + seizure-like activity and + headache(s); no localized weakness Psychiatric: no depression and no anxiety Hematologic / Lymphatic: no easy bleeding and no easy bruising Exam (Neuro) Constitutional: well developed and well nourished Eyes: normal visual roman by confrontation, PERRL and EOM intact bilaterally; no papilledema Cardiovascular: Vessels: no carotid bruit Neurologic: Oriented to:: Person and Place; negative Time Memory: Short Term Intact and Remote Intact Attention: negative Span Intact or Concentration Intact Speech Fluency: negative Dysarthria or Dysfluency Speech Aphasia: negative Aphasia Fund of Knowledge: Current Events, Past History and Vocabulary Cranial Nerves: Normal II, III, IV, , V, VII, VIII, IX, X, XI and XII Motor Strength: Normal Lower Extremities and Normal Upper Extremities Muscle Bulk/Involuntary Movements: No Involuntary Movements; negative Muscle Atrophy Sensation: negative Light Touch Intact, Pain/Temperature Intact, Vibration Intact or Proprioception Intact Coordination: negative Dysdiadochokinesia or Finger-Nose Abnormal Deep Tendon Reflexes: Rt Triceps: 1+, Lt Triceps: 1+, Rt Biceps: 1+, Lt Biceps: 1+, Rt Brachioradialis: 1+, Lt Brachioradialis: 1+, Rt Patellar: 1+, Lt Patellar: 1+, Rt Ankle: 1+ and Lt Ankle: 1+ Special Tests: negative Babinski Present Details: Gait could not be tested Results & Data Vital Signs (Past 12 Hours) Vital Signs Temp Pulse Resp BP Pulse Ox O2 Del Method O2 Flow Rate 03/19/23 08:00 36.8 C 03/19/23 10:31 82 36 H 151/91 H 93 Nasal Cannula 4 03/19/23 10:01 106 H 25 H 163/90 H 90 Nasal Cannula 4 03/19/23 09:31 99 H 23 137/75 94 CPAP, Mechanical Vent 03/19/23 09:00 70 21 123/75 93 CPAP, Mechanical Vent 03/19/23 08:31 87 26 H 135/83 93 03/19/23 08:00 96 H 27 H 143/63 H 95 Mechanical Vent 03/19/23 08:05 03/19/23 08:05 85 26 H 94 03/19/23 07:50 80 26 H 94 03/19/23 07:31 94 H 25 H 111/68 94 Mechanical Vent 03/19/23 07:16 89 25 H 146/63 H 96 Mechanical Vent 03/19/23 07:00 85 18 129/63 95 Mechanical Vent 03/19/23 08:00 76 03/19/23 08:00 03/19/23 07:43 Mechanical Vent 03/19/23 06:46 93 H 26 H 95 03/19/23 06:46 119/69 03/19/23 06:31 92 H 25 H 95 03/19/23 06:00 90 19 123/62 94 03/19/23 05:00 88 21 95/50 L 91 03/19/23 04:00 97 H 21 147/86 H 95 03/19/23 03:00 87 20 111/58 L 93 03/19/23 04:00 03/19/23 03:40 81 29 H 94 03/19/23 02:00 81 27 H 149/73 H 95 03/19/23 01:00 90 20 99/53 L 92 FiO2 03/19/23 08:00 03/19/23 10:31 03/19/23 10:01 03/19/23 09:31 40 03/19/23 09:00 40 03/19/23 08:31 03/19/23 08:00 40 03/19/23 08:05 40 03/19/23 08:05 40 03/19/23 07:50 40 03/19/23 07:31 40 03/19/23 07:16 40 03/19/23 07:00 40 03/19/23 08:00 03/19/23 08:00 40 03/19/23 07:43 40 03/19/23 06:46 03/19/23 06:46 03/19/23 06:31 03/19/23 06:00 03/19/23 05:00 03/19/23 04:00 03/19/23 03:00 03/19/23 04:00 40 03/19/23 03:40 40 03/19/23 02:00 03/19/23 01:00 Laboratory Results WBC 9.89, hemoglobin 13.3, hematocrit 40.1, platelet count 165, sodium 137, potassium 4.7, BUN 23, creatinine 1.39, glucose 188, hemoglobin A1c 7.7, calcium 7.9, AST 20, ALT 22, troponin 231.0, TSH 3.238, CSF, clear, colorless, no xanthochromia, CSF WBC 2, RBC 8, glucose 156, protein 58.3, CSF BioFire meningoencephalitis panel negative Diagnostic Findings CT of the head including CTA of the head and neck and brain MRI are as described in the history of present illness. I independently reviewed these images. An electrocardiogram revealed a sinus rhythm with frequent PVCs, chronic septal and inferior infarcts, 94 bpm An echocardiogram revealed normal left ventricular size, moderate concentric LVH, EF 45 to 50%, no thrombus Limited evaluation of the cardiac valves, left atrium not well visualized, no obvious cardioembolic source, no significant change compared with prior study PG Care Time/CCT Total # of Minutes Spent Total Time Spent with Patient: 85 minutes spent with chart review, direct review of imaging, labs, medical tests, consultation reports, interview with patient, family, examination of patient, medical documentation. Coding Level of Care Code 25809 INT INP/OBS CARE 375MIN Diagnoses New onset seizure R56.9 Metabolic acidosis E87.20 Acute hyperglycemia R73.9 Vertebral artery occlusion I65.09 Diabetes mellitus type 2, uncontrolled E11.65 Glycemic state: with hyperglycemia H/O intracranial hemorrhage Z86.79 H/O craniotomy Z98.890 (5) Diabetes mellitus type 2, uncontrolled Glycemic state: with hyperglycemia Qualified Code(s): E11.65 - Type 2 diabetes mellitus with hyperglycemia
[2023-03-19] MEDS: METOPROLOL SUCC 50MG EXT REL TAB PO SCH ×2 (14:08→20:10)
--- NOTE | 2023-03-19 15:11 | Electrocardiogram Report ---
Test Reason : Blood Pressure : / mmHG Vent. Rate : 094 BPM Atrial Rate : 094 BPM P-R Int : 178 ms QRS Dur : 100 ms QT Int : 366 ms P-R-T Axes : 023 -25 055 degrees QTc Int : 457 ms Sinus rhythm with frequent Premature ventricular complexes Septal infarct (cited on or before 16-MAY-2017) Inferior infarct (cited on or before 16-MAY-2017) Abnormal ECG When compared with ECG of 18-MAR-2023 10:26, Questionable change in initial forces of Anterolateral leads Confirmed by Miah Rawls ([id number]) on 03/19/2023 3:11:14 PM Referred By: REFERRED SELF Confirmed By:Miah Rawls
[2023-03-19] MEDS ORDERED: CETIRIZINE HCL 10 MG TABLET PO PRN (20:07)
[2023-03-19] MEDS ORDERED: ALBUTEROL HFA 8 GM INHALER INH PRN (20:07)
[2023-03-19] MEDS: levETIRAcetam 500 MG TAB PO SCH (20:10)
[2023-03-19 20:26] LABS: Appearance Urine Clear (Clear); Bacteria Urine Automated Negative (Negative); Bilirubin Urine Negative (Negative); Blood Urine 2+ (Negative); Cast Urine Automated 0 /lpf (0-5); Color Urine Yellow; Epithelial Cell Urine Auto 0-5 /lpf (0-5); Glucose Urine UA Negative (Negative); Ketones Urine Negative (Negative); Leukocyte Esterase Urine Negative (Negative); Nitrite Urine Negative (Negative); Protein Urine Negative (Negative); RBC Urine Automated 0-4 /hpf (0-4); Specific Gravity Urine 1.006 (1.000-1.030); Urobilinogen Urine Negative (Negative); WBC Urine Automated 0 /hpf (0-5); pH Urine 5.5 (4.5-7.5)
[2023-03-19] MEDS: MONTELUKAST SODIUM 10 MG TABLET PO SCH (22:00)
[2023-03-20] MEDS: CEFEPIME 2,000 MG in SYRINGE 0 ML IV SCH (03:23)
[2023-03-20 04:37] LABS: Basophils # (auto) 0.05 K/uL (0-0.2); Basophils % (auto) 0.6 %; Eosinophils # (auto) 0.29 K/uL (0-0.50); Eosinophils % (auto) 3.6 %; Hematocrit (blood only) 38.8 % (42.0-52.0); Hemoglobin 13.2 g/dl (14.0-18.0); Immature Granulocytes # (auto) 0.03 K/uL (0.01-0.20); Immature Granulocytes % (auto) 0.4 %; Lymphocytes % (auto) 16.3 %; Mean Corpuscular Hemoglobin 30.1 pg (25.0-34.0); Mean Corpuscular Volume 88.6 fL (80.0-100.0); Mean Platelet Volume 10.9 fL (9.4-12.4); Monocytes # (auto) 0.68 K/uL (0.11-0.59); Monocytes % (auto) 8.5 %; Neutrophils # (auto) 5.65 K/uL (1.40-6.50); Neutrophils % (auto) 70.6 %; Platelet Count 147 K/uL (130-400); RDW Coefficient of Variation 13.2 % (11.5-14.5); RDW Standard Deviation 43.4 fL (36.4-46.3); Red Blood Count 4.38 M/uL (4.70-6.10)
[2023-03-20 04:54] LABS: Albumin Globulin Ratio 1.1 (0.9-2); Albumin Level 3.3 gm/dl (3.4-5.0); BUN Creatinine Ratio 16.3 (10-20); Bilirubin,Total 0.9 mg/dl (0.2-1.0); Calcium 8.7 mg/dl (8.6-10.3); Creatinine Clr Calc Pharmacy 71.5 ml/min; Est GFR (African American) 75.5 ml/min; Est GFR (Non-African American) 65.2 ml/min; Globulin 2.9 gm/dl (2.5-4.0); Magnesium 1.8 mg/dl (1.7-2.4); Potassium 4.1 mmol/L (3.5-5.1); Total Protein 6.2 gm/dl (6.0-8.3)
[2023-03-20] MEDS ORDERED: VANCOMYCIN HCL 1,000 MG in SODIUM CHLORIDE 0.9% 250 ML IV SCH (08:00)
[2023-03-20] MEDS: CHOLECALCIFEROL 1,000 UNITS 25 MCG TAB PO SCH (08:38)
[2023-03-20] MEDS: lisinopril 40 MG TAB PO SCH (08:39)
[2023-03-20] MEDS: SPIRONOLACTONE 25 MG TAB PO SCH (08:39)
[2023-03-20] MEDS: levETIRAcetam 500 MG TAB PO SCH ×2 (08:39→22:06)
[2023-03-20] MEDS: METOPROLOL SUCC 50MG EXT REL TAB PO SCH ×2 (08:39→22:05)
[2023-03-20] MEDS: ENOXAPARIN INJ 40 MG/0.4 ML SYR SQ SCH (08:39)
[2023-03-20] MEDS: ASPIRIN 81 MG ECTAB PO SCH (08:39)
[2023-03-20] MEDS: ATORVASTATIN 40 MG TAB PO SCH (08:39)
[2023-03-20] MEDS: INSULIN ASPART PER UNIT CHARGE SC SCH ×4 (08:42→22:06)
[2023-03-20] MEDS: LANTUS PER UNIT CHARGE SC SCH ×2 (08:43→22:07)
[2023-03-20] MEDS ORDERED: ACETAMINOPHEN 325 MG TAB PO PRN (09:03)
--- NOTE | 2023-03-20 20:28 | Hospitalist Progress Note ---
Date of Service March 19, 2023 Assessment & Plan (1) New onset seizure: Plan: Seizure, altered mental status, hypotension with leukocytosis.Required intubation for airway protesction on admission - No prior history of seizure with 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 Had a stroke related to this, but no seizures and recovered without deficit following many weeks of rehab -possible viral infection and low grade fever lowered sz threshold in setting of prior encephalomalacia from previous ICH Sodium normal Admitting EKG: Sinus tachycardia with PVCs, QTc 465, rate 111. No territorial ST elevations are appreciated CXR: Initial CXR with cardiomegaly and evidence of congestive failure and endotracheal tube projecting over the right mainstem bronchus; repeat CXR cardiomegaly with pulmonary vascular congestion and interstitial coarsening consistent with pulmonary edema, no pneumothorax. ETT repositioned in place 2.6 cm superior to christiano at the midline CThead: No acute hemorrhage, mass effect, or evidence of ischemia by CT criteria CTA head/neck: 1. There is no evidence of hemorrhage, mass effect, or acute territorial ischemia noting angiographic phase technique. 2. The left vertebral artery is dominant and widely patent. 3. The right vertebral artery is diminutive. 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 This is of indeterminate chronicity. 4. Otherwise unremarkable CT angiogram examinations of the head and neck. 5. Endotracheal and enteric tubes have been placed. -CT-A/P: 1. Streak and motion compromised examination. 2. No acute infectious or inflammatory findings are identified in the abdomen or pelvis. 3. Trace pleural effusions with dependent consolidation. 4. Cardiomegaly. 5. Colonic diverticulosis without CT evidence of acute diverticulitis. MRI seizure protocol negative for new stroke Appreciate Neuro consult-->encephalomalacia of the left temporal lobe and postoperative change can make him prone to having seizures EEG with encephalopathy; start Keppra 500mg po bid No driving-will submit DMV form f/u Neuro in 2-3 weeks in office (2) Acute metabolic encephalopathy: Plan: *Metabolic encephalopathy 2/2 seizure and post-ictal period Now improving (3) Acute respiratory failure with hypoxia: Plan: *Acute pulmonary edema *Acute respiratory failure with hypoxia Secondary to seizure, encephalopathy, pulm edema given IV lasix, on vent now extubated, on supplemental O2 monitor (4) Leukocytosis: Plan: Fever, leukocytosis likely from stress response No acute abnormalities on CT abdomen Patient has had a cough for 3 to 4 weeks, worse in the days leading to admission. COVID negative but could have other viral process CXR as noted Pro-Mendoza neg Continue cefepime/vancomycin for empiric sepsis coverage but can dc tomorrow if BCxs Ur cx, and CSF cx neg (5) ILD (interstitial lung disease): Plan: Chronic Dyspnea, exertional shortness of breath PFT 11/25/2022: Technically challenging test. FVC 3.03 (83% predicted), FEV1 2.59 (102% predicted), FEV1/FVC ratio 85 (121% predicted), DLCO 74% predicted (16.89). Moderate restrictive lung disease, no obstructive lung dysfunction with insignificant bronchodilator response, mild decrease in DLCO Patient is suspected of underlying ILD, was pending a high-resolution CT with pulmonology follow-up scheduled (6) S/P drug eluting coronary stent placement: Plan: CAD with history of PCI Cardiac cath 2016: 1% calcified occluded LAD after second diagonal, 90% occluded distal LAD, 70% stenosis at first diagonal bifurcation, LCx 80-90% proximal, RCA dominant with diffuse mild distal disease, occluded small PDA filling with collaterals, right PLB 50-60% proximal 2016 s/p PCI with JOSE MARIA to mid LAD with staged placement of additional JOSE MARIA to proximal circumflex 2020 follow-up dobutamine stress echo negative for ischemia EF 2020 50%, interval increase from 40-45% in 2016 Patient last seen 02/06/2023 by cardiology for follow-up, at that time had had some continued exertional dyspnea despite euvolemia, but no increase since he was seen for dyspnea in 2020 Admitting EKG: nsr, no territorial ischemia Admitting troponin: 25 then increased and peaked at 300, ECHO no WMA, mod LVH, EF 45-50%. 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 Physical Exam Constitutional: WD/WN, vitals as above Respiratory: normal respiratory effort, lungs clear to auscultation Cardiovascular: RRR, no murmur, no edema Gastrointestinal (Abdomen): normal bowel sounds, soft, nontender, no hepatosplenomegaly Results & Data Results & Data Vital Signs (Past 12 Hours) Vital Signs Temp Pulse Resp BP Pulse Ox O2 Del Method O2 Flow Rate 03/20/23 19:45 36.5 C 95 H 24 158/90 H 94 Nasal Cannula 3 03/20/23 15:18 36.8 C 89 20 149/72 H 94 Nasal Cannula 2.0 03/20/23 11:28 36.5 C 73 20 148/81 H 93 Nasal Cannula 2.0 Laboratory Results CBC, CMP reviewed BCxs and CSF cx reviewed PG Care Time/CCT Total # of Minutes Spent Total Time Spent with Patient: Total time spent is greater than 50% in coordination of care (as documented) at patient's floor/unit and/or counseling patient: Coding Level of Care Code 76918 SUB INP/OBS CARE 3/50MIN Diagnoses New onset seizure R56.9 Acute metabolic encephalopathy G93.41 Acute respiratory failure with hypoxia J96.01 Leukocytosis D72.829 ILD (interstitial lung disease) J84.9 S/P drug eluting coronary stent placement Z95.5 CKD (chronic kidney disease) N18.31 Chronic kidney disease stage: stage 3 (moderate) Chronic kidney disease stage 3 subtype: stage 3a (GFR 45-59) Ischemic cardiomyopathy I25.5 Diabetes mellitus type 2, uncontrolled E11.65 Glycemic state: with hyperglycemia Sleep apnea in adult G47.30 Hypertension I10 Hypertension type: essential hypertension (7) CKD (chronic kidney disease) Chronic kidney disease stage: stage 3 (moderate) Chronic kidney disease stage 3 subtype: stage 3a (GFR 45-59) Qualified Code(s): N18.31 - Chronic kidney disease, stage 3a (9) Diabetes mellitus type 2, uncontrolled Glycemic state: with hyperglycemia Qualified Code(s): E11.65 - Type 2 diabetes mellitus with hyperglycemia (11) Hypertension Hypertension type: essential hypertension Qualified Code(s): I10 - Essential (primary) hypertension
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
[2023-03-20] MEDS ORDERED: guaiFENesin/DEXTROM SYRUP 200MG/20MG 10ML UDC PO PRN (20:59)
[2023-03-20] MEDS ORDERED: FUROSEMIDE INJ 20 MG/2 ML VIAL IV ONE (21:00)
[2023-03-20] MEDS: MONTELUKAST SODIUM 10 MG TABLET PO SCH (22:05)
[2023-03-21 06:22] LABS: Basophils # (auto) 0.05 K/uL (0-0.2); Basophils % (auto) 0.8 %; Eosinophils # (auto) 0.33 K/uL (0-0.50); Eosinophils % (auto) 5.2 %; Hematocrit (blood only) 41.6 % (42.0-52.0); Hemoglobin 13.9 g/dl (14.0-18.0); Immature Granulocytes # (auto) 0.03 K/uL (0.01-0.20); Immature Granulocytes % (auto) 0.5 %; Lymphocytes # (auto) 1.41 K/uL (1.2-3.4); Lymphocytes % (auto) 22.4 %; Mean Corpuscular Hemoglobin 30.1 pg (25.0-34.0); Mean Corpuscular Hgb Conc 33.4 g/dL (32.0-36.0); Mean Platelet Volume 11.4 fL (9.4-12.4); Monocytes # (auto) 0.58 K/uL (0.11-0.59); Monocytes % (auto) 9.2 %; Neutrophils % (auto) 61.9 %; Platelet Count 125 K/uL (130-400); RDW Coefficient of Variation 13.2 % (11.5-14.5); Red Blood Count 4.62 M/uL (4.70-6.10)
[2023-03-21 06:38] LABS: BUN Creatinine Ratio 14.7 (10-20); Calcium 8.6 mg/dl (8.6-10.3); Creatinine Clr Calc Pharmacy 76.3 ml/min; Est GFR (African American) 84.3 ml/min; Est GFR (Non-African American) 72.7 ml/min; Magnesium 1.7 mg/dl (1.7-2.4); Potassium 4.1 mmol/L (3.5-5.1)
[2023-03-21] MEDS: INSULIN ASPART PER UNIT CHARGE SC SCH ×2 (08:30→11:54)
[2023-03-21] MEDS: LANTUS PER UNIT CHARGE SC SCH (08:31)
[2023-03-21] MEDS: ENOXAPARIN INJ 40 MG/0.4 ML SYR SQ SCH (08:33)
[2023-03-21] MEDS: CHOLECALCIFEROL 1,000 UNITS 25 MCG TAB PO SCH (08:34)
[2023-03-21] MEDS: ATORVASTATIN 40 MG TAB PO SCH (08:34)
[2023-03-21] MEDS: levETIRAcetam 500 MG TAB PO SCH (08:34)
[2023-03-21] MEDS: lisinopril 40 MG TAB PO SCH (08:34)
[2023-03-21] MEDS: METOPROLOL SUCC 50MG EXT REL TAB PO SCH (08:34)
[2023-03-21] MEDS: ASPIRIN 81 MG ECTAB PO SCH (08:34)
[2023-03-21] MEDS: SPIRONOLACTONE 25 MG TAB PO SCH (08:34)
[2023-03-21] MEDS ORDERED: FUROSEMIDE 40 MG TAB PO SCH (09:00)
[2023-03-21] MEDS ORDERED: EMPAGLIFLOZIN 10 MG TAB PO SCH (09:00)
[2023-03-21] MEDS ORDERED: CLOPIDOGREL BISULFATE 75 MG TAB PO SCH (09:00)
[2023-03-21] MEDS ORDERED: MAGNESIUM SULFATE / D5W 1 GM/100 ML BAG IV ONE (09:32)
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
[2023-03-22 23:48] LABS: Lyme DNA PCR CSF or Synovial Not Detected (Not Detected); Lyme DNA Source CSF
[2023-03-23 03:01] LABS: Babesia microti DNA Not Detected (Not Detected)
== END 2023-03-21 17:58 | disposition home or self-care (01) | DRG 100 ==
LOC: ED 10:08 → SUATTDRO 13:34 → 1E 13:34 → 2S 03-20 06:28